=== PATIENT | male | born 1945 | race Caucasian/White ===

== ENCOUNTER → 2016-11-10 | Outpatient (CLI) | payer MEDICARE ==
[2016-11-10 16:13] LABS: Blood Urea Nitrogen 21 mg/dL (9-20); Non-African American GFR(MDRD) >60 (>60 ml/min/1.73 sqM)
--- NOTE | 2016-11-10 17:06 | CT ---
EXAMINATION TYPE: CT angio neck DATE OF EXAM: 11/10/2016 HISTORY: Follow up Right sided stenosis COMPARISON: Carotid ultrasound dated 05/05/2014 CT DLP: 532 mGycm. Automated Exposure Control for Dose Reduction was Utilized. TECHNIQUE: CTA scan of the neck is performed with IV Contrast, patient injected with 65 mL of Omnipa que 350, axial images are obtained, coronal and sagittal reformatted images are reviewed. Three-D rec onstructed images are created on an independent workstation and reviewed. FINDINGS: Carotid/Vascular Structures: And film is made of a bovine configuration of the aortic arch, normal an atomic variant. There is minimal nonhemodynamically significant ostial stenosis of the origins of the great vessels. The common carotid arteries are of normal caliber with minimal acentrically anteriorl y located calcific atherosclerosis of the right common carotid artery of less than 20%. There is near complete occlusion of the right carotid artery at the carotid bulb of greater than 90% and a short segment of 6 mm on series 5 image 50 and 51. However there is severe atherosclerosis cont ributed to by calcific and noncalcific eccentric plaque of the carotid bulb extending along the regio n of approximately 7 mm. Distal to this there is continuation of the calcific atheromatous plaquing w ith approximately 50% stenosis for 1.1 cm. Right internal carotid artery remains smaller than the left in the remaining cervical portions withou t focal stenosis. Smaller caliber relates to circumferential intimal noncalcific plaquing. Approximat mihir 50% stenosis from calcific atheromatous changes are seen of the right cavernous portion of the ca rotid artery. Small amount of plaquing is also seen within the supraclinoid portion of the right inte rnal carotid artery. Vertebral arteries are codominant. However, there is an apparent course of the left vertebral artery as it courses outside of the transverse foramen from its origin to C3. Biapical nodular pleural parenchymal thickening is noted bilaterally. Moderate calcific changes of th e aortic arch are present. Single prominent precarinal lymph node measures 1.0 cm in short axis but m aintains a fatty hilum. Multilevel degenerative change of the cervical spine is seen with uncovertebr al hypertrophy, facet arthropathy and small posterior disc osteophyte. IMPRESSION: 1. Near complete occlusion of the right carotid artery at the carotid bulb with stenosis of greater t hutch[place] 90% in a short segment of 6 mm with stenosis continuing distal to this of at least 50% for anothe r 1.1 cm involving the internal carotid artery. Remainder of the right internal carotid artery in its cervical portions is diminutive and comparative to the left secondary to circumferential noncalcific atheromatous changes but is less than 50% stenotic. 2. No hemodynamically significant stenosis of the left carotid artery or carotid bulb. 3. 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
== END | disposition home or self-care (01) ==
LOC: RADCTMAIN 15:38
PROVIDERS: ATTEND Internal Medicine Cardiovascular Disease
DX: I65.21 Occlusion and stenosis of right carotid artery (principal)
CPT/HCPCS: 82565; 84520; 70498; 36415; Q9967

== ENCOUNTER 2016-11-25 07:19 | Day surgery (SDC) | payer MEDICARE ==
[2016-11-22 09:22] VITALS: BMI 28.8
[~2016-11-25 07:19] MED LIST: ALPRAZolam 0.25 MG TAB PO PRN; ASPIRIN 325 MG TAB PO ONE; CLOPIDOGREL 75 MG TAB PO ONE; SODIUM CHLORIDE 0.9% 1,000 ML in EMPTY BAG 1 BAG IV ONE
[2016-11-25 08:03] LABS: CH 30.9; CHCM 34.1; HCT 45.4 % (39.0-53.0); HDW 2.69; HGB 15.2 gm/dL (13.0-17.5); MCH 30.5 pg (25.0-35.0); MCHC 33.4 g/dL (31.0-37.0); MCV 91.3 fL (80.0-100.0); Mean Platelet Volume 7.6; RBC 4.97 m/uL (4.30-5.90); RDW 15.7 % (11.5-15.5); WBC 15.1 k/uL (3.8-10.6)
[2016-11-25] MEDS ORDERED: LIDOCAINE 2% INJ 20 MG/ML SQ ONE ×2 (09:38→09:41)
[2016-11-25] MEDS ORDERED: ALPRAZolam 0.5 MG TAB PO PRN (10:37)
[2016-11-25] MEDS ORDERED: ATROPINE SULFATE 0.1 MG/ML 10ML SYRINGE IV PRN (10:39)
[2016-11-25] MEDS ORDERED: MAG HYDROX/AL HYDROX/SIMETH 30 ML CUP PO PRN (10:39)
[2016-11-25] MEDS ORDERED: RX INFO: IV CONTRAST WAS GIVEN 1 EACH MISC MISCELLANE PRN (10:39)
[2016-11-25] MEDS ORDERED: IOHEXOL 350 MG/ML 125ML BOTTLE INJ ONE (10:43)
[2016-11-25] MEDS ORDERED: CLOPIDOGREL 75 MG TAB PO ONE (10:43)
[2016-11-25] MEDS ORDERED: SODIUM CHLORIDE 0.9% 1,000 ML IV SCH (10:45)
--- NOTE | 2016-11-25 11:45 | AN ---
ANGIOGRAPHY REPORT DATE OF SERVICE: 11/25/2016. PERFORMING PHYSICIAN: Ulises Joel MD, fuel testing technician. PROCEDURE PERFORMED: 1. Selective right internal carotid artery angiogram. 2. Selective intracranial angiogram. 3. Successful stenting of the right common carotid artery using 8 to 10 mm x 30 mm Xact stent with good angiographic results, with adjunctive use of distal protection device. INDICATION: This is a pleasant 71-year-old gentleman who sees Dr. Guido as an outpatient, who is known to have coronary artery disease and underwent right carotid endarterectomy in the past. He underwent carotid duplex study which showed severe stenosis. Subsequently he underwent a CTA, which showed critical stenosis. He was brought today for further clarification and stenting of the right common carotid artery. COMPLICATIONS: None. LEVEL OF SEDATION: Local anesthesia was performed only, without any conscious sedation. APPROACH: Right common femoral artery. PROCEDURE DESCRIPTION: After obtaining informed consent, the patient was brought to the cardiac slab polisher. The right common femoral artery was cannulated using micropuncture technique and a micropuncture wire passed easily and I placed an 11 cm 6-Bulgarian sheath in the right common femoral artery. Subsequently I did select the right common carotid artery using ELAYNE 2 catheter with an 0.035 Glidewire and I did selective right common and right internal carotid artery angiogram. After that, I decided to intervene on the right common carotid artery. Anticoagulation was initiated using heparin and the patient was given units of heparin IV. After that, I did exchange my wire of the right internal carotid artery using an 0.035 Advantage wire. Then I did exchange my 11 cm sheath into a 90 cm shuttle sheath, which was 6-Bulgarian sheath over the Advantage wire and the tip of the sheath was positioned in the proximal right common carotid artery. Subsequently I did pull the dilator and the Advantage wire out. At that point, I did right intracranial angiogram and I did also selective right common and internal carotid artery angiogram. After that, I did deploy filter wire after the filter wire was prepped. Then I did predilatation using 4 mm balloon. Subsequently, I did deploy an 8 to 10 x 30 mm Xact carotid stent where the stent was positioned under fluoroscopy guidance and deployed. I post dilated the stent initially using 5 mm balloon initially, then subsequently using 6.5 mm balloon. The following angiogram showed good angiographic results without complication and without any issues. POSTPROCEDURE MANAGEMENT: 1. Dual anti-platelet therapy. 2. Risk factor modifications. 3. Follow up with the patient. MMODL / IJN: [id number] /
[2016-11-25 13:54] LABS: Glucose,Whole Blood 114 mg/dL (75-99)
--- NOTE | 2016-11-25 14:42 | IR ---
Fluoroscopy HISTORY: Carotid stenosis 13.8 minutes fluoroscopy time supplied to the referring clinician. 720 intraoperative C-arm images d ocument the procedure. See dictated report from cardiology.
[2016-11-25] MEDS: MAGNESIUM OXIDE 400 MG TAB PO SCH (20:41)
[2016-11-25] MEDS: METOPROLOL TARTRATE 50 MG TAB PO SCH (20:41)
[2016-11-25] MEDS ORDERED: ATORVASTATIN 40 MG TAB PO SCH ×2 (21:00)
[2016-11-25] MEDS ORDERED: NON-FORMULARY DRUG (Omega-3 Fatty Acids/Fish Oil [Fish Oil 1,000 Mg Softgel] 1 EACH) PO SCH (21:00)
[2016-11-26 04:50] LABS: Basophils # (A) 0.4 k/uL (0-0.2); Basophils % (A) 3 %; CH 29.5; CHCM 33.4; Eosinophils # (A) 0.3 k/uL (0-0.7); Eosinophils % (A) 2 %; HCT 43.5 % (39.0-53.0); HDW 2.64; HGB 14.1 gm/dL (13.0-17.5); Luc # (Auto) 0.24; Luc % (Auto) 2; Lymphocytes # (A) 0.8 k/uL (1.0-4.8); Lymphocytes % (A) 6 %; MCH 28.9 pg (25.0-35.0); MCHC 32.4 g/dL (31.0-37.0); MCV 89.1 fL (80.0-100.0); Monocytes # (A) 0.9 k/uL (0-1.0); Monocytes % (A) 6 %; Neutrophils # (A) 11.7 k/uL (1.3-7.7); Neutrophils % (A) 82 %; RBC 4.88 m/uL (4.30-5.90); RDW 14.6 % (11.5-15.5); WBC 14.4 k/uL (3.8-10.6); WBC (Perox) 14.56
[2016-11-26 05:03] LABS: Anion Gap 9 mmol/L; Blood Urea Nitrogen 23 mg/dL (9-20); Calcium 9.1 mg/dL (8.4-10.2); Carbon Dioxide 23 mmol/L (22-30); Chloride 106 mmol/L (98-107); Glucose 101 mg/dL (74-99); Non-African American GFR(MDRD) >60 (>60 ml/min/1.73 sqM); Potassium 4.4 mmol/L (3.5-5.1); Sodium 138 mmol/L (137-145)
[2016-11-26] MEDS: MAGNESIUM OXIDE 400 MG TAB PO SCH (08:59)
[2016-11-26] MEDS: METOPROLOL TARTRATE 50 MG TAB PO SCH (08:59)
[2016-11-26] MEDS ORDERED: LISINOPRIL 10 MG TAB PO SCH (09:00)
[2016-11-26] MEDS ORDERED: amLODIPine 10 MG TAB PO SCH (09:00)
[2016-11-26] MEDS ORDERED: SILICA PO SCH (09:00)
[2016-11-26] MEDS ORDERED: CHOLECALCIFEROL 1,000 UNIT TAB PO SCH (09:00)
[2016-11-26] MEDS ORDERED: ASPIRIN 325 MG TAB PO SCH ×2 (09:00)
[2016-11-26] MEDS ORDERED: SAW PALMETTO PO SCH (09:00)
[2016-11-26] MEDS ORDERED: NON-FORMULARY DRUG (Potassium [Potassium] 99 MG) PO SCH (09:00)
[2016-11-26] MEDS ORDERED: CLOPIDOGREL 75 MG TAB PO SCH ×2 (09:00→10:39)
[2016-11-26] MEDS ORDERED: ASCORBIC ACID 500 MG TAB PO SCH (09:00)
[2016-11-26] MEDS ORDERED: NON-FORMULARY DRUG (Ubidecarenone [Co Q-10] 100 MG) PO SCH (09:00)
--- NOTE | 2016-11-26 09:48 | DS ---
DISCHARGE SUMMARY DATE OF ADMISSION: November 25, 2016. DISCHARGE DATE: November 26, 2016. BRIEF HISTORY: This is a very pleasant 71-year-old gentleman who is a patient of Dr. Ran Guido who is known to have carotid artery disease and underwent in the past right carotid endarterectomy, and he was having surveillance duplex study by Dr. Guido with the last duplex study showing severe disease involving the right common/internal carotid artery. Subsequently a CTA of the carotid was performed by Dr. uGido and identified possible subtotally occluded right common/right internal carotid artery. The patient was admitted to the hospital yesterday and underwent selective right common and right internal carotid angiogram which identified critical disease involving the right common carotid artery. He underwent successful stenting of the right common carotid artery using 8 to 10 mm x 30 mm Xact stent from [employer] with good angiographic results and with adjunctive use of distal protection filter. PROCEDURE: Was performed from the right groin which is soft and nontender and without any bruises. On follow up with the patient today, he seems to be doing good and he is asymptomatic. He is going to be discharged home on dual anti-platelet therapy as well as a statin. The patient is going to follow up with Dr. Guido as an outpatient in about a week from now. MMODL / IJN: [id number] /
[2016-11-26 09:59] VITALS: TEMP 98.7
[2016-11-26 11:22] VITALS: BP 114/55; PULSE 53; RESP 14
== END 2016-11-26 12:29 | disposition home or self-care (01) ==
LOC: CATHCVL 07:19 → 6ICU 13:00 → CATHCVL 11-26 12:29
PROVIDERS: ATTEND Internal Medicine Interventional Cardiology
DX: I65.21 Occlusion and stenosis of right carotid artery (principal); I70.213 Atherosclerosis of native arteries of extremities with intermittent claudication, bilateral legs; I10 Essential (primary) hypertension; E78.5 Hyperlipidemia, unspecified; I25.810 Atherosclerosis of coronary artery bypass graft(s) without angina pectoris; Z79.02 Long term (current) use of antithrombotics/antiplatelets; Z79.82 Long term (current) use of aspirin; Z79.899 Other long term (current) drug therapy; Z87.891 Personal history of nicotine dependence
CPT/HCPCS: 37215; 80048; 83735; 85025; 85027; C1725 ×2; C1769 ×5; C1894 ×2; C1884; C1876; J2001; J1644; Q9967

== ENCOUNTER → 2021-02-24 | Outpatient (CLI) | payer OTHER ==
[2021-02-24 23:54] LABS: HCT 39.3 % (39.6-50.0); HGB 12.1 g/dL (13.0-17.0); MCH 28.1 pg (27.0-32.0); MCHC 30.8 g/dL (32.0-37.0); MCV 91.2 fL (80.0-97.0); Mean Platelet Volume 10.6 fL (9.5-12.2); Platelet Count 240 X 10*3/uL (140-440); RBC 4.31 X 10*6/uL (4.40-5.60); WBC 7.12 X 10*3/uL (4.50-10.00)
[2021-02-25 00:04] LABS: African American GFR (CKD) 76.3 (60.0-200.0); Anion Gap 13.7 mmol/L (10.00-18.00); BUN/Creat Ratio 19.91 Ratio (12.00-20.00); Blood Urea Nitrogen 21.5 mg/dL (9.0-27.0); Calcium 9.3 mg/dL (8.7-10.3); Carbon Dioxide 22.6 mmol/L (20.0-27.5); Non-African American GFR(CKD) 65.9 (60.0-200.0); Potassium 4.5 mmol/L (3.5-5.5)
== END | disposition home or self-care (01) ==
LOC: LABWHC1 14:57
PROVIDERS: ATTEND Internal Medicine Cardiovascular Disease
DX: R60.0 Localized edema (principal)
CPT/HCPCS: 36415; 80048; 83880; 84443; 85027

== ENCOUNTER 2021-04-01 06:23 | Day surgery (SDC) | payer MEDICARE, OTHER ==
[2021-03-30 13:54] VITALS: BMI 25.8
[~2021-04-01 06:23] MED LIST changes: -ALPRAZolam 0.25 MG TAB PO PRN; -ASPIRIN 325 MG TAB PO ONE; -CLOPIDOGREL 75 MG TAB PO ONE; +SODIUM CHLORIDE 0.9% 1,000 ML IV SCH; -SODIUM CHLORIDE 0.9% 1,000 ML in EMPTY BAG 1 BAG IV ONE
[2021-04-01 07:04] LABS: Glucose,Whole Blood 115 mg/dL (75-99)
[2021-04-01] MEDS ORDERED: PROPOFOL 10 MG/ML 20 ML VIAL IV ONE (07:25)
[2021-04-01] MEDS ORDERED: LIDOCAINE 1% INJ 10MG/ML (20 ML MDV) ONE (07:25)
[2021-04-01 08:35] VITALS: TEMP 97.5
--- NOTE | 2021-04-01 09:48 | ECHOT ---
TRANSESOPHAGEAL ECHOCARDIOGRAM FIRST PROCEDURE: Transesophageal echocardiogram. INDICATION: Persistent atrial fibrillation. PROCEDURE NOTE: After obtaining informed consent, transesophageal echocardiogram was performed in left lateral position using an Omniplane probe. Local and IV sedation were obtained by the picked edge sewing machine operator. Color Doppler, 2D, M-mode and spectral analysis was performed. Patient tolerated the procedure well without any obvious immediate complications. FINDINGS: 1. There is no intracardiac thrombus within the left atrial appendage, left atrium, right atrium, right ventricle or left ventricle. 2. Left ventricle has normal size and systolic function. 3. Right atrium is severely enlarged. 4. Right ventricle appears mildly enlarged. 5. Left atrium is mildly enlarged. 6. Interatrial septum: There is no evidence of [id number] shunt by agitated saline contrast study, but with color Doppler there seems to be shunting from left to right. 7. Mitral valve is anatomically normal. There is mild to moderate central mitral regurgitation noted. 8. There is mild tricuspid regurgitation noted. 9. Aortic valve is a 3-leaflet valve. There is no evidence aortic stenosis or regurgitation. Aortic root measures within normal limits. CONCLUSIONS: 1. Normal LV systolic function. 2. No intracardiac thrombus. 3. Mild to moderate mitral regurgitation. 4. Right atrium appears severely enlarged. PLAN: Patient will undergo cardioversion. CARDIOVERSION NOTE: INDICATION: Persistent atrial fibrillation. PROCEDURE DESCRIPTION: After obtaining informed consent, patient underwent electrical cardioversion with synchronized DC current. Intracardiac thrombus was ruled out by transesophageal echo and patient was adequately anticoagulated with Eliquis. Patient converted to sinus rhythm following two synchronized DC current shocks. Initially we tried a 100-joule shock; it did not work; then we tried a 150-joule current, following which he converted to sinus rhythm. He will continue the anticoagulant and will follow up with me in a week's time. MMODL / IJN: [id number] /
--- NOTE | 2021-04-01 10:56 | LTR ---
April 01, 2021 To: Dr. Tee Batres Re: Randall Brewster (41) Dear Aditya, I performed transesophageal echo and cardioversion on Randall Brewster. A detailed procedure is enclosed for your records. I am happy to report to you that patient converted to sinus rhythm following a 150- joule synchronized DC shock, and will continue the anticoagulant that he is on. Thank you for giving me the privilege of participating in the care of this pleasant gentleman. Sincerely, Ran Guido M.D. DEBBI / MARY KATE: [id number] /
[2021-04-01 14:44] VITALS: RESP 16
[2021-04-01 14:45] VITALS: BP 150/65; PULSE 70
== END 2021-04-01 09:57 | disposition home or self-care (01) ==
LOC: CATHCVL 06:23
PROVIDERS: ATTEND Internal Medicine Cardiovascular Disease
DX: I48.19 Other persistent atrial fibrillation (principal); I48.3 Typical atrial flutter; I11.0 Hypertensive heart disease with heart failure; I50.32 Chronic diastolic (congestive) heart failure; I08.1 Rheumatic disorders of both mitral and tricuspid valves; I25.10 Atherosclerotic heart disease of native coronary artery without angina pectoris; F17.210 Nicotine dependence, cigarettes, uncomplicated; I73.9 Peripheral vascular disease, unspecified; I77.9 Disorder of arteries and arterioles, unspecified; E78.2 Mixed hyperlipidemia; Z95.1 Presence of aortocoronary bypass graft; Z79.01 Long term (current) use of anticoagulants; Z79.899 Other long term (current) drug therapy; Z79.84 Long term (current) use of oral hypoglycemic drugs; Z79.82 Long term (current) use of aspirin
CPT/HCPCS: 93312; 93320; 93325; 92960; J2001; J2704

== ENCOUNTER → 2021-11-13 | Outpatient (CLI) | payer MEDICARE ==
[2021-11-13 16:46] LABS: ALT 38 U/L (10-49); AST 32 U/L (14-35); Chol/HDL Ratio 2.28 Ratio; LDL Cholesterol,Calculated 78.2 mg/dL (0.0-131.0); VLDL Calculation 11.72 mg/dL (5.00-40.00)
== END | disposition home or self-care (01) ==
LOC: LABWHC1 08:14
PROVIDERS: ATTEND Internal Medicine Cardiovascular Disease
DX: E78.2 Mixed hyperlipidemia (principal)
CPT/HCPCS: 36415; 80061; 84450; 84460

== ENCOUNTER 2022-12-27 10:38 | Observation (INO) | payer MEDICARE ==
[2022-12-27] MEDS ORDERED: VANCOMYCIN IV PER PHARMACY 1 EACH MISC MISCELLANE PRN (11:57)
[2022-12-27] MEDS ORDERED: VANCOMYCIN 1,500 MG in SODIUM CHLORIDE 0.9% 500 ML 500 ML IVPB STA (12:02)
--- NOTE | 2022-12-27 12:02 | ED ---
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 Patient states 3 weeks ago had an ingrown toenail removed of his right great toe. Since then has had problems with redness and pain of the toe. Was prescribed Bactrim on 12/19/22. Despite taking this, reports continued redness warmth and pain of the toe. Reports that he had an x-ray of his toe last week that did not show a "bone infection". Eyes fever or chills. No chest pain or shortness of breath. - Related Data Home Medications Medication Instructions Recorded Confirmed Atorvastatin [Lipitor] 80 mg PO HS 01/14/14 04/01/21 Metoprolol Tartrate [Lopressor] 50 mg PO BID 01/14/14 04/01/21 amLODIPine [Norvasc] 10 mg PO DAILY 01/14/14 04/01/21 lisinopriL [Zestril] 10 mg PO DAILY 10/08/15 04/01/21 Aspirin 81 mg PO DAILY 11/25/15 04/01/21 Ascorbic Acid [Vitamin C] 1,000 mg PO DAILY 11/22/16 04/01/21 Magnesium Oxide [Mag-Ox] 500 mg PO QAM 11/22/16 04/01/21 Potassium 99 mg PO DAILY 11/22/16 04/01/21 Saw Goodrich 500 mg PO DAILY #0 11/22/16 04/01/21 Silica 500 mg PO DAILY 11/22/16 04/01/21 Vitamin A Acetate [Vitamin A] 10,000 unit SL DAILY 11/22/16 04/01/21 Vitamin B Complex 1 each PO DAILY 11/22/16 04/01/21 Zinc 50 mg PO DAILY 11/22/16 04/01/21 Apixaban [Eliquis] 5 mg PO BID 03/30/21 04/01/21 Cinnachroma 1 tab PO DAILY 03/30/21 04/01/21 Nilotinib HCl [Tasigna] 300 mg PO BID 03/30/21 03/30/21 Omeprazole 20 mg PO DAILY 03/30/21 04/01/21 Psyllium Husk [Metamucil] 0.4 gm PO DAILY 03/30/21 04/01/21 Tamsulosin HCl [Flomax] 0.4 mg PO DAILY 03/30/21 04/01/21 metFORMIN HCL 500 mg PO DAILY 03/30/21 04/01/21 Allergies Allergy/AdvReac Type Severity Reaction Status Date / Time amoxicillin trihydrate AdvReac headache Verified 12/27/22 10:48 [From Augmentin] potassium clavulanate AdvReac headache Verified 12/27/22 10:48 [From Augmentin] Review of Systems ROS Statement: Those systems with pertinent positive or pertinent negative responses have been documented in the HPI. ROS Other: All systems not noted in ROS Statement are negative. Past Medical History Past Medical History: Coronary Artery Disease (CAD), Diabetes Mellitus, Hyperlipidemia, Hypertension, Vascular Disorder Additional Past Medical History / Comment(s): calf pain, recent admission for "critically" low sodium per psouse History of Any Multi-Drug Resistant Organisms: None Reported Past Surgical History: Coronary Bypass/CABG, Heart Catheterization, Tonsillectomy Additional Past Surgical History / Comment(s): 1999 CABG, right carotid endartectomy- 1999, Past Anesthesia/Blood Transfusion Reactions: Motion Sickness Past Psychological History: No Psychological Hx Reported Past Alcohol Use History: Occasional Past Drug Use History: None Reported - Past Family History Father Family Medical History: Myocardial Infarction ([place]) Additional Family Medical History / Comment(s): heart problems Mother Family Medical History: Diabetes Mellitus Additional Family Medical History / Comment(s): jeart problems General Exam Limitations: no limitations General appearance: alert, in no apparent distress Neck exam: Present: normal inspection Respiratory exam: Present: normal lung sounds bilaterally Cardiovascular Exam: Present: regular rate, normal rhythm GI/Abdominal exam: Present: soft Extremities exam: Present: other (Right great toe with redness, warmth, erythema, tenderness to palpation however no significant bony tenderness palpation. Strength and sensation intact.) Neurological exam: Present: alert, oriented X3 Skin exam: Present: warm, dry Course Vital Signs 12/27/22 10:48 Temperature 97.9 F Pulse Rate 109 H Respiratory 18 Rate Blood Pressure 128/76 O2 Sat by Pulse 99 Oximetry Medical Decision Making - Medical Decision Making Was pt. sent in by a medical professional or institution (, DUSTY, HEALTH CLUB MANAGER, urgent care, hospital, or correction...) When possible be specific @ -No Did you speak to anyone other than the patient for history (EMS, parent, family, police, friend...)? What history was obtained from this source @ -No Did you review nursing and triage notes (agree or disagree)? Why? @ -I reviewed and agree with nursing and triage notes Were old charts reviewed (outside hosp., previous admission, EMS record, old EKG, old radiological studies, urgent care reports/EKG's, correction records)? Report findings @ -No old charts were reviewed Differential Diagnosis (chest pain, altered mental status, abdominal pain women, abdominal pain men, vaginal bleeding, weakness, fever, dyspnea, syncope, headache, dizziness, GI bleed, back pain, seizure, CVA, palpatations, mental health, musculoskeletal)? @ -Differential Musculoskeletal Muscular strain, contusion, ligament sprain, fracture, arthritis, septic art hritis, bursitis, cellulitis, muscle spasm, nerve compression, DVT, arterial occlusion, herpes zoster, electrolyte abnormality, tumor.... This is not meant to be in all inclusive list EKG interpreted by me (3pts min.). @ -As above X-rays interpreted by me (1pt min.). @ -X-ray of the right great toe shows no evidence of osteomyelitis. CT interpreted by me (1pt min.). @ -None done U/S interpreted by me (1pt. min.). @ -None done What testing was considered but not performed or refused? (CT, X-rays, U/S, labs)? Why? @ -None What meds were considered but not given or refused? Why? @ -None Did you discuss the management of the patient with other professionals (professionals i.e. DUSTY Cisse, HEALTH CLUB MANAGER, lab, RT, psych nurse, mental health social worker, product marketing coordinator, teacher, chief contract officer, family independence case manager)? Give summary @ -No Was smoking cessation discussed for >3mins.? @ -No Was critical care preformed (if so, how long)? @ -No Were there social determinants of health that impacted care today? How? (Homelessness, low income, unemployed, alcoholism, drug addiction, transportation, low edu. Level, literacy, decrease access to med. care, [place] [facility], rehab)? @ -No Was there de-escalation of care discussed even if they declined (Discuss DNR or withdrawal of care, Hospice)? DNR status @ -No What co-morbidities impacted this encounter? (DM, HTN, Smoking, COPD, CAD, Cancer, CVA, ARF, Chemo, Hep., AIDS, mental health diagnosis, sleep apnea, morbid obesity)? @ -CML, type 2 diabetes Was patient admitted / discharged? Hospital course, mention meds given and route, prescriptions, significant lab abnormalities, going to OR and other pertinent info. @ -Admission 77-year-old male presenting to the ED with an infection of the right great toe ongoing for the last 3 weeks with no improvement despite complaining a course of Bactrim double strength outpatient. X-ray of the toe shows no evidence of osteomyelitis. CBC does not show an elevated white count. CRP also not elevated. However, with patient's comorbidities felt patient at high risk especially with failure of outpatient treatment. Therefore, patient will be admitted to observation with consult to infectious disease and podiatry. Undiagnosed new problem with uncertain prognosis? @ -No Drug Therapy requiring intensive monitoring for toxicity (Heparin, Nitro, Insulin, Cardizem)? @ -No Were any procedures done? @ -No Diagnosis/symptom? @ -Right great toe infection Acute, or Chronic, or Acute on Chronic? @ -Acute Uncomplicated (without systemic symptoms) or Complicated (systemic symptoms)? @ -Uncomplicated Side effects of treatment? @ -[No xacerbation, Progression, or Severe Exacerbation? @ -[No oses a threat to life or bodily function? How? (Chest pain, [place], [place], pneumonia, PE, COPD, DKA, ARF, appy, cholecystitis, CVA, Diverticulitis, Homicidal, Suicidal, threat to staff... and all critical care pts) @ -[No - Lab Data Result diagrams: 12/27/22 12:03 12/27/22 12:03 Lab Results 12/27/22 12/27/22 12/27/22 Range/Units 12:03 12:03 12:03 WBC 6.5 (3.8-10.6) k/uL RBC 4.68 (4.30-5.90) m/uL Hgb 14.0 (13.0-17.5) gm/dL Hct 41.1 (39.0-53.0) % MCV 87.7 (80.0-100.0) fL MCH 29.9 (25.0-35.0) pg MCHC 34.1 (31.0-37.0) g/dL RDW 14.1 (11.5-15.5) % Plt Count 287 (150-450) k/uL MPV 6.9 Neutrophils % 58 % Lymphocytes % 14 % Monocytes % 11 % Eosinophils % 12 % Basophils % 1 % Neutrophils # 3.8 (1.3-7.7) k/uL Lymphocytes # 0.9 L (1.0-4.8) k/uL Monocytes # 0.7 (0-1.0) k/uL Eosinophils # 0.8 H (0-0.7) k/uL Basophils # 0.1 (0-0.2) k/uL Sodium 124 L (137-145) mmol/L Potassium 5.0 (3.5-5.1) mmol/L Chloride 96 L (98-107) mmol/L Carbon Dioxide 20 L (22-30) mmol/L Anion Gap 8 mmol/L BUN 22 H (9-20) mg/dL Creatinine 1.10 (0.66-1.25) mg/dL Est GFR (CKD-EPI)AfAm 74 (>60 ml/min/1.73 sqM) Est GFR (CKD-EPI)NonAf 64 (>60 ml/min/1.73 sqM) Glucose 104 H (74-99) mg/dL Plasma Lactic Acid Esau (0.7-2.0) mmol/L Calcium 9.7 (8.4-10.2) mg/dL Total Bilirubin 1.1 (0.2-1.3) mg/dL AST 40 (17-59) U/L ALT 32 (4-49) U/L Alkaline Phosphatase 144 H (38-126) U/L C-Reactive Protein <0.5 (<1.0) mg/dL Total Protein 8.4 H (6.3-8.2) g/dL Albumin 5.0 (3.5-5.0) g/dL Urine Color Light Yellow Urine Appearance Clear (Clear) Urine pH 6.0 (5.0-8.0) Ur Specific [place] 1.008 (1.001-1.035) Urine Protein Negative (Negative) Urine Glucose (UA) Negative (Negative) Urine Ketones Negative (Negative) Urine Blood Negative (Negative) Urine Nitrite Negative (Negative) Urine Bilirubin Negative (Negative) Urine Urobilinogen <2.0 (<2.0) mg/dL Ur Leukocyte Esterase Negative (Negative) 12/27/22 12/27/22 Range/Units 12:03 12:18 WBC (3.8-10.6) k/uL RBC (4.30-5.90) m/uL Hgb (13.0-17.5) gm/dL Hct (39.0-53.0) % MCV (80.0-100.0) fL MCH (25.0-35.0) pg MCHC (31.0-37.0) g/dL RDW (11.5-15.5) % Plt Count (150-450) k/uL MPV Neutrophils % % Lymphocytes % % Monocytes % % Eosinophils % % Basophils % % Neutrophils # (1.3-7.7) k/uL Lymphocytes # (1.0-4.8) k/uL Monocytes # (0-1.0) k/uL Eosinophils # (0-0.7) k/uL Basophils # (0-0.2) k/uL Sodium 130 L (137-145) mmol/L Potassium 5.0 (3.5-5.1) mmol/L Chloride 95 L (98-107) mmol/L Carbon Dioxide 24 (22-30) mmol/L Anion Gap 11 mmol/L BUN 22 H (9-20) mg/dL Creatinine 1.11 (0.66-1.25) mg/dL Est GFR (CKD-EPI)AfAm 73 (>60 ml/min/1.73 sqM) Est GFR (CKD-EPI)NonAf 63 (>60 ml/min/1.73 sqM) Glucose 104 H (74-99) mg/dL Plasma Lactic Acid Esau 1.1 (0.7-2.0) mmol/L Calcium 9.7 (8.4-10.2) mg/dL Total Bilirubin 1.2 (0.2-1.3) mg/dL AST 42 (17-59) U/L ALT 31 (4-49) U/L Alkaline Phosphatase 144 H (38-126) U/L C-Reactive Protein (<1.0) mg/dL Total Protein 8.4 H (6.3-8.2) g/dL Albumin 5.0 (3.5-5.0) g/dL Urine Color Urine Appearance (Clear) Urine pH (5.0-8.0) Ur Specific [place] (1.001-1.035) Urine Protein (Negative) Urine Glucose (UA) (Negative) Urine Ketones (Negative) Urine Blood (Negative) Urine Nitrite (Negative) Urine Bilirubin (Negative) Urine Urobilinogen (<2.0) mg/dL Ur Leukocyte Esterase (Negative) Disposition Clinical Impression: Cellulitis Disposition: ADMITTED IP TO THIS HOSP Condition: Good Referrals: Anthony Luong MD [Primary Care Provider] - 1-2 days
[2022-12-27] MEDS ORDERED: SODIUM CHLORIDE 0.9% 1,000 ML IV STA (12:03)
[2022-12-27 12:41] LABS: Basophils # (A) 0.1 k/uL (0-0.2); Basophils % (A) 1 %; Eosinophils # (A) 0.8 k/uL (0-0.7); Eosinophils % (A) 12 %; HCT 41.1 % (39.0-53.0); Lymphocytes # (A) 0.9 k/uL (1.0-4.8); Lymphocytes % (A) 14 %; MCH 29.9 pg (25.0-35.0); MCHC 34.1 g/dL (31.0-37.0); MCV 87.7 fL (80.0-100.0); Mean Platelet Volume 6.9; Monocytes # (A) 0.7 k/uL (0-1.0); Monocytes % (A) 11 %; Neutrophils # (A) 3.8 k/uL (1.3-7.7); Neutrophils % (A) 58 %; Platelet Count 287 k/uL (150-450); RBC 4.68 m/uL (4.30-5.90); RDW 14.1 % (11.5-15.5); WBC 6.5 k/uL (3.8-10.6)
[2022-12-27 12:44] LABS: ALT 32 U/L (4-49); AST 40 U/L (17-59); African American GFR (CKD) 74 (>60 ml/min/1.73 sqM); Alkaline Phosphatase 144 U/L (38-126); Anion Gap 8 mmol/L; Blood Urea Nitrogen 22 mg/dL (9-20); C Reactive Protein <0.5 mg/dL (<1.0); Calcium 9.7 mg/dL (8.4-10.2); Carbon Dioxide 20 mmol/L (22-30); Chloride 96 mmol/L (98-107); Glucose 104 mg/dL (74-99); Non-African American GFR(CKD) 64 (>60 ml/min/1.73 sqM); Sodium 124 mmol/L (137-145); Total Bilirubin 1.1 mg/dL (0.2-1.3); Total Protein 8.4 g/dL (6.3-8.2)
[2022-12-27 12:47] LABS: ALT 31 U/L (4-49); AST 42 U/L (17-59); African American GFR (CKD) 73 (>60 ml/min/1.73 sqM); Alkaline Phosphatase 144 U/L (38-126); Anion Gap 11 mmol/L; Blood Urea Nitrogen 22 mg/dL (9-20); Calcium 9.7 mg/dL (8.4-10.2); Carbon Dioxide 24 mmol/L (22-30); Chloride 95 mmol/L (98-107); Glucose 104 mg/dL (74-99); Non-African American GFR(CKD) 63 (>60 ml/min/1.73 sqM); Sodium 130 mmol/L (137-145); Total Bilirubin 1.2 mg/dL (0.2-1.3); Total Protein 8.4 g/dL (6.3-8.2)
--- NOTE | 2022-12-27 13:01 | XR ---
EXAMINATION TYPE: XR toes RT DATE OF EXAM: 12/27/2022 12:52 PM CLINICAL INDICATION:Male, 77 years old with history of r/o osteo R Great toe; [facility] COMPARISON: None TECHNIQUE: XR toes RT examined in the AP, oblique, and lateral projections. FINDINGS: No evidence of any acute osseous pathology. No evidence of soft tissue swelling. Joints are preserve d. No osseous erosion visualized. Multifocal degeneration with osteophyte and joint space narrowing. Given calcification noted along the medial right first digit. IMPRESSION: 1. No evidence of acute fracture. 2. No evidence for osseous erosion to suggest osteomyelitis.
[2022-12-27 13:34] LABS: Appearance,Urine Clear (Clear); Bilirubin,Urine Negative (Negative); Blood,Urine Negative (Negative); Color,Urine Light Yellow; Glucose,Urine (UA) Negative (Negative); Ketones,Urine Negative (Negative); Leukocyte Esterase,Urine Negative (Negative); Nitrite,Urine Negative (Negative); Protein,Urine Negative (Negative); Specific Gravity,Urine 1.008 (1.001-1.035); Urobilinogen,Urine <2.0 mg/dL (<2.0)
[2022-12-27] MEDS ORDERED: KETOROLAC 15 MG/ML 1 ML VIAL IVP PRN (14:13)
[2022-12-27] MEDS ORDERED: NALOXONE 0.4 MG/ML 1 ML VIAL IV PRN (14:13)
[2022-12-27] MEDS ORDERED: HYDROmorphone 1 MG/ML 1 ML SYRINGE IVP PRN (14:13)
[2022-12-27] MEDS: SODIUM CHLORIDE 0.9% 1,000 ML IV SCH (15:46)
[2022-12-27] MEDS ORDERED: DEXTROSE 50% SYRINGE 50 ML IVP PRN ×2 (16:23)
--- NOTE | 2022-12-27 16:25 | P.HPIM ---
History of Present Illness H&P Date: 12/27/22 Patient is a 77-year-old male with a history of CML, type 2 diabetes, hypertension, dyslipidemia, CAD status post CABG, prior stenosis status post endarterectomy, GERD, atrial fibrillation presenting with right great toe infection. He claims that 2 weeks ago he was noted to have an ingrown nail on his right great toe, presented to his PCP office. Ingrown nail was taken out at that time, patient had some relief from pain during the first week, and beginning to get worse the next week. He also noted erythema and edema. He did not notice any drainage. Denies any fevers or chills. He was given antibiotic at an urgent care and was advised to go to ER if it doesn't help. He o ccasionally drinks, denies any smoking history or illicit drug use. In the ED, temperature was 97.9, pulse 109, respiratory rate 18, blood pressure 128/76 saturating at 99% on room air. WBC 6.5, hemoglobin 14, platelet 37, sodium 1:30, chloride 95, BUN 22, creatinine 1.1, glucose 104, lactate 1.1, CRP negative, urinalysis negative. Toe x-ray showed no evidence of acute fracture or evidence of osseous erosion to suggest osteomyelitis. Podiatry and ID consulted by ER. Patient also started on IV vancomycin. Patient being admitted for failed outpatient therapy for right great toe cellulitis. Pertinent positives and negatives as discussed in HPI, a complete review of systems was performed and all other systems are negative. Patient seen and examined at bedside. Vital signs reviewed General: nontoxic, no distress, appears at stated age Derm: warm, dry Head: atraumatic, normocephalic, symmetric Eyes: EOMI, no lid lag, anicteric sclera, pupils equal round reactive to light ENT: Nose and ears atraumatic Neck: No thyromegaly, supple Mouth: no lip lesion, mucus membranes moist Cardiovascular: S1S2 reg, no murmur, no edema Lungs: clear to auscultation bilateral, no rhonchi, no rales, no wheeze, no accessory muscle use Abdominal: soft, nontender to palpation, no guarding, no appreciable organomegaly Ext: no gross muscle atrophy, muscle strength muscle strength 5 out of 5 in all 4 extremities, no contractures Neuro: CN II-XII grossly intact Psych: Alert, oriented, appropriate affect Assessment/Plan: Active: Right great toe cellulitis, failed outpatient antibiotic therapy -Blood cultures pending -Podiatry and ID consulted -IV vancomycin and switched to IV Unasyn -If no further interventions, consider switching to oral antibiotics and discharge home Mild hyponatremia -On normal saline at 75 mL an hour, also received 1 L of normal saline in the ED -Repeat BMP tomorrow Type 2 diabetes -Sliding scale insulin, monitor for hypoglycemia -Hold home antidiabetic medications Chronic: CAD status post CABG Hypertension Dyslipidemia Atrial fibrillation CML Restarted home medications once verified by pharmacy. The patient is admitted with an anticipated less than 2 midnight stay as observation status for evaluation of right great toe cellulitis. Surrogate decision-maker: spouse CODE STATUS: Full code DVT prophylaxis: Nikita Anticipated discharge date: Pending clinical course Anticipated discharge place: Pending clinical course A total of 55 minutes was spent on the care of this complex patient more than 50% of the time was spent in counseling and care coordination. Past Medical History Past Medical History: Coronary Artery Disease (CAD), Diabetes Mellitus, Hyperlipidemia, Hypertension, Vascular Disorder Additional Past Medical History / Comment(s): calf pain, recent admission for "critically" low sodium per psouse History of Any Multi-Drug Resistant Organisms: None Reported Past Surgical History: Coronary Bypass/CABG, Heart Catheterization, Tonsillectomy Additional Past Surgical History / Comment(s): 1999 CABG, right carotid endartectomy- 1999, Past Anesthesia/Blood Transfusion Reactions: Motion Sickness Past Psychological History: No Psychological Hx Reported Past Alcohol Use History: Occasional Past Drug Use History: None Reported - Past Family History Father Family Medical History: Myocardial Infarction ([place]) Additional Family Medical History / Comment(s): heart problems Mother Family Medical History: Diabetes Mellitus Additional Family Medical History / Comment(s): jeart problems Medications and Allergies Home Medications Medication Instructions Recorded Confirmed Type Atorvastatin [Lipitor] 80 mg PO HS 01/14/14 04/01/21 History Metoprolol Tartrate [Lopressor] 50 mg PO BID 01/14/14 04/01/21 History amLODIPine [Norvasc] 10 mg PO DAILY 01/14/14 04/01/21 History lisinopriL [Zestril] 10 mg PO DAILY 10/08/15 04/01/21 History Aspirin 81 mg PO DAILY 11/25/15 04/01/21 History Ascorbic Acid [Vitamin C] 1,000 mg PO DAILY 11/22/16 04/01/21 History Magnesium Oxide [Mag-Ox] 500 mg PO QAM 11/22/16 04/01/21 History Potassium 99 mg PO DAILY 11/22/16 04/01/21 History Saw [place] 500 mg PO DAILY #0 11/22/16 04/01/21 History Silica 500 mg PO DAILY 11/22/16 04/01/21 History Vitamin A Acetate [Vitamin A] 10,000 unit SL DAILY 11/22/16 04/01/21 History Vitamin B Complex 1 each PO DAILY 11/22/16 04/01/21 History Zinc 50 mg PO DAILY 11/22/16 04/01/21 History Apixaban [Eliquis] 5 mg PO BID 03/30/21 04/01/21 History Cinnachroma 1 tab PO DAILY 03/30/21 04/01/21 History Nilotinib HCl [Tasigna] 300 mg PO BID 03/30/21 03/30/21 History Omeprazole 20 mg PO DAILY 03/30/21 04/01/21 History Psyllium Husk [Metamucil] 0.4 gm PO DAILY 03/30/21 04/01/21 History Tamsulosin HCl [Flomax] 0.4 mg PO DAILY 03/30/21 04/01/21 History metFORMIN HCL 500 mg PO DAILY 03/30/21 04/01/21 History Allergies Allergy/AdvReac Type Severity Reaction Status Date / Time amoxicillin trihydrate AdvReac headache Verified 12/27/22 10:48 [From Augmentin] potassium clavulanate AdvReac headache Verified 12/27/22 10:48 [From Augmentin] Physical Exam Vitals: Vital Signs Temp Pulse Resp BP Pulse Ox 12/27/22 14:49 98.3 F 100 16 154/82 98 12/27/22 10:48 97.9 F 109 H 18 128/76 99 Intake and Output 12/27/22 12/27/22 12/27/22 06:59 14:59 22:59 Other: Weight 74.843 kg Results CBC & Chem 7: 12/27/22 12:03 12/27/22 12:03 Labs: Abnormal Lab Results - Last 24 Hours (Table) 12/27/22 12/27/22 12/27/22 Range/Units 12:03 12:03 12:03 Lymphocytes # 0.9 L (1.0-4.8) k/uL Eosinophils # 0.8 H (0-0.7) k/uL Sodium 124 L 130 L (137-145) mmol/L Chloride 96 L 95 L (98-107) mmol/L Carbon Dioxide 20 L (22-30) mmol/L BUN 22 H 22 H (9-20) mg/dL Glucose 104 H 104 H (74-99) mg/dL Alkaline Phosphatase 144 H 144 H (38-126) U/L Total Protein 8.4 H 8.4 H (6.3-8.2) g/dL
[2022-12-27 17:15] LABS: Glucose,Whole Blood 102 mg/dL (70-110)
[2022-12-27] MEDS: INSULIN ASPART (NovoLOG) 100 UNIT/ML VIAL SQ SCH ×2 (17:26→20:16)
[2022-12-27] MEDS: AMPICILLIN-SULBACTAM 3 GM in SODIUM CHLORIDE 0.9% 100 ML IVPB SCH (17:29)
[2022-12-27 19:57] LABS: Glucose,Whole Blood 107 mg/dL (70-110)
--- NOTE | 2022-12-27 21:40 | P.CONS ---
History of Present Illness - Reason for Consult Consult date: 12/27/22 Right great toe infection Requesting physician: Yassine Harris - Chief Complaint Right big toe pain swelling redness x few days - History of Present Illness Patient is a 77-year-old male with a past medical history significant for diabetes mellitus hypertension hyperlipidemia coronary artery disease patient apparently did have a minor surgery on his right big toe for the ingrowing toenail patient mention subsequent started having increasing redness and pain to the right big toe for the patient was evaluated at the local urgent care on 12/19/2022 patient was treated with a 7-day course of Bactrim DS patient mentioned with taking the Bactrim DS as a throbbing went away however after he was done with his antibiotic patient noticed to have increasing throbbing pain to the right big toe moderate intensity without any radiation with associated swelling and redness but no drainage that have concerned the patient and he present to the hospital on arrival to the ER patient was afebrile and no fever has been called subsequently patient did have a white count of 6.5 creatinine is 1.11 liver enzymes are normal UA has been negative patient did have x-ray of the toe no evidence for acute fracture and no evidence of acute bony erosion to suggest osteomyelitis, patient was started on vancomycin infectious disease was consulted for further management of antibiotic therapy Review of Systems Positive point and negatives has been mentioned in the HPI, complete review of systems was performed and all other systems are negative Past Medical History Past Medical History: Coronary Artery Disease (CAD), Diabetes Mellitus, Hyperlipidemia, Hypertension, Vascular Disorder Additional Past Medical History / Comment(s): calf pain, recent admission for "critically" low sodium per psouse History of Any Multi-Drug Resistant Organisms: None Reported Past Surgical History: Coronary Bypass/CABG, Heart Catheterization, Tons illectomy Additional Past Surgical History / Comment(s): 1999 CABG, right carotid endartectomy- 1999, Past Anesthesia/Blood Transfusion Reactions: Motion Sickness Past Psychological History: No Psychological Hx Reported Past Alcohol Use History: Occasional Past Drug Use History: None Reported - Past Family History Father Family Medical History: Myocardial Infarction ([place]) Additional Family Medical History / Comment(s): heart problems Mother Family Medical History: Diabetes Mellitus Additional Family Medical History / Comment(s): jeart problems Medications and Allergies Home Medications Medication Instructions Recorded Confirmed Type Aspirin 81 mg PO DAILY 11/25/15 12/27/22 History Apixaban [Eliquis] 5 mg PO BID 03/30/21 12/27/22 History Nilotinib HCl [Tasigna] 600 mg PO DAILY 03/30/21 12/27/22 History Omeprazole 20 mg PO DAILY 03/30/21 12/27/22 History Tamsulosin HCl [Flomax] 0.4 mg PO BID 03/30/21 12/27/22 History Atorvastatin [Lipitor] 80 mg PO HS 12/27/22 12/27/22 History Ferrous Gluconate 324 mg PO DAILY 12/27/22 12/27/22 History Metoprolol Tartrate [Lopressor] 50 mg PO TID 12/27/22 12/27/22 History lisinopriL [Zestril] 20 mg PO DAILY 12/27/22 12/27/22 History Amoxic-Pot Clav 875-125Mg 1 tab PO Q12HR 10 Days #20 tab 12/28/22 Rx [Augmentin 875-125] Allergies Allergy/AdvReac Type Severity Reaction Status Date / Time amoxicillin trihydrate AdvReac headache Verified 12/27/22 17:40 [From Augmentin] potassium clavulanate AdvReac headache Verified 12/27/22 17:40 [From Augmentin] Physical Exam Vitals: Vital Signs Temp Pulse Resp BP Pulse Ox 12/27/22 14:49 98.3 F 100 16 154/82 98 12/27/22 10:48 97.9 F 109 H 18 128/76 99 Intake and Output 12/27/22 12/27/22 12/27/22 06:59 14:59 22:59 Other: Weight 74.843 kg GENERAL DESCRIPTION: Elderly male lying in bed, no distress. No tachypnea or accessory muscle of respiration use. HEENT: Shows Pallor , no scleral icterus. Oral mucous membrane is dry. No pharyngeal erythema or thrush NECK: Trachea central, no thyromegaly. LUNGS: Unlabored breathing. Clear to auscultation anteriorly. No wheeze or crackle. HEART: S1, S2, regular rate and rhythm. No loud murmur ABDOMEN: Soft, no tenderness , guarding or rigidity, no organomegaly EXTREMITIES: Right big toe did have some swelling redness no open wound or any drainage SKIN: No rash, no masses palpable. NEUROLOGICAL: The patient is awake, alert, oriented x3, mood and affect normal. Results CBC & Chem 7: 12/27/22 12:03 12/28/22 04:16 Labs: Abnormal Lab Results - Last 24 Hours (Table) 12/27/22 12/27/22 12/27/22 Range/Units 12:03 12:03 12:03 Lymphocytes # 0.9 L (1.0-4.8) k/uL Eosinophils # 0.8 H (0-0.7) k/uL Sodium 124 L 130 L (137-145) mmol/L Chloride 96 L 95 L (98-107) mmol/L Carbon Dioxide 20 L (22-30) mmol/L BUN 22 H 22 H (9-20) mg/dL Glucose 104 H 104 H (74-99) mg/dL Alkaline Phosphatase 144 H 144 H (38-126) U/L Total Protein 8.4 H 8.4 H (6.3-8.2) g/dL Assessment and Plan (1) Cellulitis of great toe, right Status: Acute Code(s): L03.031 - CELLULITIS OF RIGHT TOE SNOMED Code(s): 14237824 (2) Diabetic infection of right foot Status: Acute Code(s): E11.628 - TYPE 2 DIABETES MELLITUS WITH OTHER SKIN COMPLICATIONS; L08.9 - LOCAL INFECTION OF THE SKIN AND SUBCUTANEOUS TISSUE, UNSP SNOMED Code(s): 63969377 Plan: 1patient presented to hospital with increasing pain to the right big toe in this patient who did have a recent surgery for the right big toe ingrowing toenail and has been treated in the outpatient setting with the Bactrim DS without significant improvement we will need to cover for the polymicrobial ashly usually associated with diabetic foot infection 2-patient with a Augmentin allergy as a headache not a true allergy 3-nursing staff has been advised if the area started to drain to obtain culture both aerobic and anaerobic 4-discontinue vancomycin 5-start the patient on Unasyn 3 g every 6 hours We will follow on clinical condition and cultures to further adjust medication if needed Thank you for this consultation we will follow the patient along with you Dictation was produced using [employer] dictation software. please excuse any grammatical, word or spelling errors. Time with Patient: Greater than 30
[2022-12-28] MEDS ORDERED: HEPARIN SODIUM,PORCINE 5,000 UNIT/ML 1 ML VIAL SQ SCH
[2022-12-28] MEDS: AMPICILLIN-SULBACTAM 3 GM in SODIUM CHLORIDE 0.9% 100 ML IVPB SCH ×5 (00:25→23:18)
[2022-12-28] MEDS: SODIUM CHLORIDE 0.9% 1,000 ML IV SCH (04:00)
[2022-12-28] MEDS ORDERED: VANCOMYCIN 1,250 MG in SODIUM CHLORIDE 0.9% 250 ML IVPB SCH (05:00)
[2022-12-28 07:11] LABS: Glucose,Whole Blood 100 mg/dL (70-110)
[2022-12-28] MEDS: INSULIN ASPART (NovoLOG) 100 UNIT/ML VIAL SQ SCH ×4 (07:41→20:19)
[2022-12-28] MEDS: TAMSULOSIN 0.4 MG CAP.ER.24H PO SCH ×2 (08:35→20:18)
[2022-12-28] MEDS: APIXABAN 5 MG TAB PO SCH ×2 (08:35→20:18)
[2022-12-28] MEDS: PANTOPRAZOLE 40 MG TABLET PO SCH (08:35)
[2022-12-28] MEDS: ASPIRIN 81 MG PO SCH (08:35)
[2022-12-28] MEDS: lisinopriL 20 MG TAB PO SCH (08:36)
[2022-12-28] MEDS: METOPROLOL TARTRATE 50 MG TAB PO SCH ×3 (08:36→20:19)
[2022-12-28] MEDS: FERROUS SULFATE 325 MG TAB PO SCH (08:36)
[2022-12-28] MEDS: PATIENT'S OWN (Nilotinib Hcl [Tasigna] 150 MG Capsule) PO SCH (08:39)
[2022-12-28 09:00] LABS: BUN/Creat Ratio 15.18 Ratio (12.00-20.00); Blood Urea Nitrogen 16.7 mg/dL (9.0-27.0); Calcium 9.4 mg/dL (8.7-10.3); Carbon Dioxide 22.6 mmol/L (21.6-31.8); Chloride 104 mmol/L (96-109); Glucose 92 mg/dL (70-110); Potassium 4.9 mmol/L (3.5-5.5); Sodium 137 mmol/L (135-145)
[2022-12-28 11:44] LABS: Glucose,Whole Blood 98 mg/dL (70-110)
--- NOTE | 2022-12-28 12:26 | P.PN ---
Subjective Progress Note Date: 12/28/22 Principal diagnosis: Reason for follow-up is Right big toe diabetic foot infection Patient is a 77-year-old male with a past medical history significant for diabetes mellitus hypertension hyperlipidemia coronary artery disease patient apparently did have a minor surgery on his right big toe for the ingrowing toenail subsequently seemed to have problem with the pain swelling and redness concerning for cellulitis failing outpatient of Bactrim DS therapy On today's evaluation that is 12/28/2022, the patient remains to be afebrile, the patient is breathing comfortably on room air and the patient denies any shortness of breath, the patient denies chest pain or any cough , patient denies abdominal pain, no nausea/vomiting and no diarrhea, the patient and pain to the right big toe has slightly decreased in intensity Patient did have creatinine of 1.1 today Objective - Vital Signs Vital signs: Vital Signs Temp 98.6 F 12/28/22 07:44 Pulse 115 H 12/28/22 07:44 Resp 16 12/28/22 07:44 BP 155/84 12/28/22 07:44 Pulse Ox 99 12/28/22 07:44 FiO2 Intake & Output 12/27/22 12/28/22 12/28/22 18:59 06:59 18:59 Intake Total 120 Balance 120 Weight 74.843 kg Intake: Oral 120 Other: Voiding Method Toilet # Voids 6 - Exam GENERAL DESCRIPTION: An elderly male up in the chair in no distress RESPIRATORY SYSTEM: Unlabored breathing , clear to auscultation anteriorly HEART: S1 S2 regular rate and rhythm , ABDOMEN: Soft , no tenderness EXTREMITIES: Right big toe swelling and redness slightly decreased - Labs CBC & Chem 7: 12/27/22 12:03 12/28/22 04:16 Labs: Abnormal Lab Results - Last 24 Hours (Table) 12/27/22 12/27/22 12/27/22 Range/Units 12:03 12:03 12:03 Lymphocytes # 0.9 L (1.0-4.8) k/uL Eosinophils # 0.8 H (0-0.7) k/uL Sodium 124 L 130 L (137-145) mmol/L Chloride 96 L 95 L (98-107) mmol/L Carbon Dioxide 20 L (22-30) mmol/L BUN 22 H 22 H (9-20) mg/dL Glucose 104 H 104 H (74-99) mg/dL Alkaline Phosphatase 144 H 144 H (38-126) U/L Total Protein 8.4 H 8.4 H (6.3-8.2) g/dL Assessment and Plan (1) Diabetic infection of right foot Current Visit: Yes Status: Acute Code(s): E11.628 - TYPE 2 DIABETES MELLITUS WITH OTHER SKIN COMPLICATIONS; L08.9 - LOCAL INFECTION OF THE SKIN AND SUBCUTANEOUS TISSUE, UNSP SNOMED Code(s): 85577232 (2) Cellulitis of great toe, right Current Visit: Yes Status: Acute Code(s): L03.031 - CELLULITIS OF RIGHT TOE SNOMED Code(s): 76630409 Plan: 1patient presented to hospital with increasing pain to the right big toe in this patient who did have a recent surgery for the right big toe ingrowing toenail and has been treated in the outpatient setting with the Bactrim DS without significant improvement we will need to cover for the polymicrobial ashly usually associated with diabetic foot infection 2-patient seemed to have some clinical improvement we'll continue the patient on IV Unasyn for another 24-hour before transition to oral multiple questions concerned were answered Dictation was produced using [employer] dictation software. please excuse any grammatical, word or spelling errors. Time with Patient: Less than 30
--- NOTE | 2022-12-28 16:12 | P.PN ---
Subjective Progress Note Date: 12/28/22 Hospital Course: 77-year-old male with a history of CML, type 2 diabetes, hypertension, dyslipidemia, CAD status post CABG, prior stenosis status post endarterectomy, GERD, atrial fibrillation presenting with right great toe infection. In the ED, temperature was 97.9, pulse 109, respiratory rate 18, blood pressure 128/76 saturating at 99% on room air. WBC 6.5, hemoglobin 14, platelet 37, sodium 1:30, chloride 95, BUN 22, creatinine 1.1, glucose 104, lactate 1.1, CRP negative, urinalysis negative. Toe x-ray showed no evidence of acute fracture or evidence of osseous erosion to suggest osteomyelitis. Podiatry and ID consulted by ER. Patient also started on IV vancomycin. Patient being admitted for failed outpatient therapy for right great toe cellulitis. Will transition f rom IV vancomycin to IV Unasyn. Subjective: Patient seen and examined at bedside. No acute events overnight. Pertinent positives and negatives as discussed above, a complete review of systems was performed and all other systems are negative. Vitals Signs Reviewed. General: nontoxic, no distress, appears at stated age Derm: warm, dry, right great toe lateral aspect, necrotic, tender and edematous Head: atraumatic, normocephalic, symmetric Eyes: EOMI, no lid lag, anicteric sclera Mouth: no lip lesion, mucus membranes moist Cardiovascular: S1S2 reg, no murmur Lungs: CTA bilateral, no rhonchi, no rales , no accessory muscle use Abdominal: soft, nontender to palpation, no guarding, no appreciable organomegaly Ext: no gross muscle atrophy, no edema, no contractures Neuro: CN II-XI grossly intact, no focal neuro deficits Psych: Alert, oriented, appropriate affect Data Reviewed Today: Pertinent Labs: Potassium 4, creatinine 1.1, sugars range between 92-107 Imaging: No new imaging Assessment and Plan: Active: Right great toe cellulitis, failed outpatient antibiotic therapy -Blood cultures pending -Podiatry consult pending -ID note reviewed, continue IV Unasyn for another 24 hours Mild hyponatremia, resolved Type 2 diabetes -Sliding scale insulin, monitor for hypoglycemia -Hold home antidiabetic medications Chronic: CAD status post CABG Hypertension Dyslipidemia Atrial fibrillation CML DVT ppx: Eliquis Code status: Full code Anticipated discharge place: Pending clinical course Anticipated discharge time: Pending clinical course Objective - Vital Signs Vital signs: Vital Signs Temp 98 F 12/28/22 13:58 Pulse 113 H 12/28/22 13:58 Resp 17 12/28/22 13:58 BP 117/66 12/28/22 13:58 Pulse Ox 98 12/28/22 13:58 FiO2 Intake & Output 12/27/22 12/28/22 12/28/22 18:59 06:59 18:59 Intake Total 120 Balance 120 Weight 74.843 kg Intake: Oral 120 Other: Voiding Method Toilet Toilet # Voids 6 - Labs CBC & Chem 7: 12/27/22 12:03 12/28/22 04:16 Labs: Abnormal Lab Results - Last 24 Hours (Table) 12/28/22 Range/Units 04:16 Hemoglobin A1c 6.4 H (<=6.0) %
[2022-12-28 17:13] LABS: Glucose,Whole Blood 96 mg/dL (70-110)
[2022-12-28 20:13] LABS: Glucose,Whole Blood 130 mg/dL (70-110)
[2022-12-28] MEDS ORDERED: ATORVASTATIN 80 MG TAB PO SCH (21:00)
[2022-12-29 02:54] VITALS: RESP 16
[2022-12-29] MEDS: AMPICILLIN-SULBACTAM 3 GM in SODIUM CHLORIDE 0.9% 100 ML IVPB SCH ×2 (06:03→12:00)
[2022-12-29 07:30] LABS: Glucose,Whole Blood 75 mg/dL (70-110)
[2022-12-29] MEDS: INSULIN ASPART (NovoLOG) 100 UNIT/ML VIAL SQ SCH ×2 (07:41→12:51)
[2022-12-29] MEDS: APIXABAN 5 MG TAB PO SCH (09:24)
[2022-12-29] MEDS: TAMSULOSIN 0.4 MG CAP.ER.24H PO SCH (09:24)
[2022-12-29] MEDS: FERROUS SULFATE 325 MG TAB PO SCH (09:25)
[2022-12-29] MEDS: ASPIRIN 81 MG PO SCH (09:25)
[2022-12-29] MEDS: METOPROLOL TARTRATE 50 MG TAB PO SCH (09:25)
[2022-12-29] MEDS: lisinopriL 20 MG TAB PO SCH (09:25)
[2022-12-29] MEDS: PATIENT'S OWN (Nilotinib Hcl [Tasigna] 150 MG Capsule) PO SCH (09:26)
[2022-12-29] MEDS: PANTOPRAZOLE 40 MG TABLET PO SCH (09:26)
--- NOTE | 2022-12-29 11:24 | P.DS ---
Providers Date of admission: 12/27/22 13:47 Expected date of discharge: 12/29/22 Attending physician: Vinod Crain MD Consults: 12/27/22 14:13 Consult Physician Urgent Consulting Provider: Alexis Stack Consult Reason/Comments: r great toe infection Do you want consulting provider notified?: Yes Consult Physician Urgent Consulting Provider: Petra Dioxn Consult Reason/Comments: r great toe infection Do you want consulting provider notified?: Yes Primary care physician: Anthony Mirza [facility] Course: Discharge Diagnosis: Right great toe cellulitis Mild hyponatremia Type 2 diabetes Hospital Course: 77-year-old male with a history of CML, type 2 diabetes, hypertension, dyslipidemia, CAD status post CABG, prior stenosis status post endarterectomy, GERD, atrial fibrillation presenting with right great toe infection. In the ED, temperature was 97.9, pulse 109, respiratory rate 18, blood pressure 128/76 saturating at 99% on room air. WBC 6.5, hemoglobin 14, platelet 37, sodium 1:30, chloride 95, BUN 22, creatinine 1.1, glucose 104, lactate 1.1, CRP negative, urinalysis negative. Toe x-ray showed no evidence of acute fracture or evidence of osseous erosion to suggest osteomyelitis. ID consulted by ER. Patient also started on IV vancomycin. Patient being admitted for failed outpatient therapy for right great toe cellulitis. He was transitioned to IV Unasyn. Toe erythema and edema improved. No longer having any right toe pain. Patient being discharged home with oral antibiotics. Patient seen and examined at bedside. Vital signs reviewed and stable. General: nontoxic, no distress, appears at stated age Derm: warm, dry, right great toe lateral aspect scab, no longer erythematous or edematous Head: atraumatic, normocephalic, symmetric Eyes: EOMI, no lid lag, anicteric sclera Mouth: no lip lesion, mucus membranes moist Cardiovascular: S1S2 reg, no murmur Lungs: CTA bilateral, no rhonchi, no rales , no accessory muscle use Abdominal: soft, nontender to palpation, no guarding, no appreciable organomegaly Ext: no gross muscle atrophy, no edema, no contractures Neuro: CN II-XI grossly intact, no focal neuro deficits Psych: Alert, oriented, appropriate affect A total of 33 minutes of time were spent preparing this complex discharge summary. Patient was discharged on 12/30/19 at 10:52. Patient Condition at Discharge: Stable Plan - Discharge Summary Discharge Rx Participant: No New Discharge Prescriptions: New Amoxic-Pot Clav 875-125Mg [Augmentin 875-125] 1 tab PO Q12HR 10 Days #20 tab Continue Aspirin 81 mg PO DAILY Apixaban [Eliquis] 5 mg PO BID Nilotinib HCl [Tasigna] 600 mg PO DAILY Tamsulosin HCl [Flomax] 0.4 mg PO BID lisinopriL [Zestril] 20 mg PO DAILY Ferrous Gluconate 324 mg PO DAILY Omeprazole 20 mg PO DAILY Atorvastatin [Lipitor] 80 mg PO HS Metoprolol Tartrate [Lopressor] 50 mg PO TID Discharge Medication List Aspirin 81 mg PO DAILY 11/25/15 [History] Apixaban [Eliquis] 5 mg PO BID 03/30/21 [History] Nilotinib HCl [Tasigna] 600 mg PO DAILY 03/30/21 [History] Omeprazole 20 mg PO DAILY 03/30/21 [History] Tamsulosin HCl [Flomax] 0.4 mg PO BID 03/30/21 [History] Atorvastatin [Lipitor] 80 mg PO HS 12/27/22 [History] Ferrous Gluconate 324 mg PO DAILY 12/27/22 [History] Metoprolol Tartrate [Lopressor] 50 mg PO TID 12/27/22 [History] lisinopriL [Zestril] 20 mg PO DAILY 12/27/22 [History] Amoxic-Pot Clav 875-125Mg [Augmentin 875-125] 1 tab PO Q12HR 10 Days #20 tab 12/28/22 [Rx] Follow up Appointment(s)/Referral(s): Anthony Luong MD [Primary Care Provider] - 1-2 days Petra Dixon MD [STAFF PHYSICIAN] - 1 Week Patient Instructions/Handouts: Cellulitis (GEN) Activity/Diet/Wound Care/Special Instructions: Please see your PCP and ID. Discharge Disposition: HOME SELF-CARE
[2022-12-29 11:40] LABS: Glucose,Whole Blood 104 mg/dL (70-110)
[2022-12-29 13:08] VITALS: BP 129/76; PULSE 92; TEMP 97.3
--- NOTE | 2022-12-29 14:06 | P.PN ---
Subjective Progress Note Date: 12/29/22 Principal diagnosis: Reason for follow-up is Right big toe diabetic foot infection Patient is a 77-year-old male with a past medical history significant for diabetes mellitus hypertension hyperlipidemia coronary artery disease patient apparently did have a minor surgery on his right big toe for the ingrowing toenail subsequently seemed to have problem with the pain swelling and redness concerning for cellulitis failing outpatient of Bactrim DS therapy On today's evaluation that is 12/29/2022, the patient continues to be afebrile, the patient is breathing comfortably on room air and the patient denies chest pain shortness of breath or cough , patient denies nausea/vomiting , no abdominal pain and no diarrhea the patient and pain to the right big toe has decreased in intensity, did have minimal drainage today No labs drawn today Objective - Vital Signs Vital signs: Vital Signs Temp 97.7 F 12/29/22 08:00 Pulse 65 12/29/22 08:00 Resp 16 12/29/22 08:00 BP 136/72 12/29/22 08:00 Pulse Ox 93 L 12/29/22 08:00 FiO2 Intake & Output 12/28/22 12/29/22 12/29/22 18:59 06:59 18:59 Intake Total 1200 Balance 1200 Intake: Oral 1200 Other: Voiding Method Toilet Toilet Toilet # Voids 2 3 - Exam GENERAL DESCRIPTION: An elderly male up in the chair in no distress RESPIRATORY SYSTEM: Unlabored breathing , clear to auscultation anteriorly HEART: S1 S2 regular rate and rhythm , ABDOMEN: Soft , no tenderness EXTREMITIES: Right big toe swelling and redness has decreased did have minimal drainage which was cultured - Labs CBC & Chem 7: 12/27/22 12:03 12/28/22 04:16 Labs: Abnormal Lab Results - Last 24 Hours (Table) 12/28/22 12/28/22 Range/Units 04:16 20:05 POC Glucose (mg/dL) 130 H (70-110) mg/dL Hemoglobin A1c 6.4 H (<=6.0) % Microbiology - Last 24 Hours (Table) 12/27/22 12:03 Blood Culture - Preliminary Blood 12/27/22 12:18 Blood Culture - Preliminary Blood Assessment and Plan (1) Diabetic infection of right foot Status: Acute Code(s): E11.628 - TYPE 2 DIABETES MELLITUS WITH OTHER SKIN COMPLICATIONS; L08.9 - LOCAL INFECTION OF THE SKIN AND SUBCUTANEOUS TISSUE, UNSP SNOMED Code(s): 93186557 (2) Cellulitis of great toe, right Status: Acute Code(s): L03.031 - CELLULITIS OF RIGHT TOE SNOMED Code(s): 83521362 Plan: 1patient presented to hospital with increasing pain to the right big toe in this patient who did have a recent surgery for the right big toe ingrowing toenail and has been treated in the outpatient setting with the Bactrim DS without significant improvement we will need to cover for the polymicrobial ashly usually associated with diabetic foot infection 2-patient has shown clinical improvement he did have minimal drainage which was cultured, results will be followed in the outpatient setting patient will finish therapy with oral Augmentin and close outpatient follow-up Multiple questions and concerns were answered Dictation was produced using [employer] dictation software. please excuse any grammatical, word or spelling errors. Time with Patient: Less than 30
== END 2022-12-29 13:20 | disposition home or self-care (01) ==
LOC: EC 10:38 → 5NMEDONC 13:47
PROVIDERS: ADMIT Student in an Organized Health Care Education/Training Program; ATTEND Student in an Organized Health Care Education/Training Program
DX: L03.031 Cellulitis of right toe (principal); E11.628 Type 2 diabetes mellitus with other skin complications; L08.9 Local infection of the skin and subcutaneous tissue, unspecified; E87.1 Hypo-osmolality and hyponatremia; I25.10 Atherosclerotic heart disease of native coronary artery without angina pectoris; E78.5 Hyperlipidemia, unspecified; I10 Essential (primary) hypertension; K21.9 Gastro-esophageal reflux disease without esophagitis; I48.91 Unspecified atrial fibrillation; Z85.6 Personal history of leukemia; Z95.1 Presence of aortocoronary bypass graft; Z79.899 Other long term (current) drug therapy; Z79.82 Long term (current) use of aspirin; Z79.01 Long term (current) use of anticoagulants; Z79.84 Long term (current) use of oral hypoglycemic drugs; Z88.0 Allergy status to penicillin
CPT/HCPCS: 96361; 96366 ×4; 96367; 96365; 99285; 36415; 93005; 80053; 80048; 83605; 85025; 86140; 81003; 87040; 87070; 87205; 87075; 87077; 87186; 83036; 73660; G0378 ×3; J3370; J0295 ×3

== ENCOUNTER → 2023-01-24 | Outpatient (CLI) | payer MEDICARE ==
[2023-01-24 15:09] LABS: HCT 39.4 % (39.6-50.0); HGB 12.7 g/dL (13.0-17.0); MCH 28.8 pg (27.0-32.0); MCHC 32.2 g/dL (32.0-37.0); MCV 89.3 FL (80.0-97.0); Mean Platelet Volume 10.2 FL (9.5-12.2); NRBC Per 100 WBC 0 X 10*3/uL (0.00-0.01); Platelet Count 198 X 10*3/uL (140-440); RBC 4.41 X 10*6/uL (4.40-5.60); RDW 14.4 % (11.5-14.5); WBC 6.28 X 10*3/uL (4.50-10.00)
[2023-01-24 15:26] LABS: Blood Urea Nitrogen 18.5 mg/dL (9.0-27.0); Carbon Dioxide 26.4 mmol/L (21.6-31.8); Chloride 103 mmol/L (96-109); Potassium 4.8 mmol/L (3.5-5.5); Sodium 140 mmol/L (135-145)
== END | disposition home or self-care (01) ==
LOC: LABPAT 10:47
PROVIDERS: ATTEND Internal Medicine Interventional Cardiology
DX: Z01.812 Encounter for preprocedural laboratory examination (principal); I73.9 Peripheral vascular disease, unspecified
CPT/HCPCS: 36415; 80051; 82565; 84520; 85027

== ENCOUNTER 2023-02-07 07:32 | Day surgery (SDC) | payer MEDICARE ==
[~2023-02-07 07:32] MED LIST changes: +ALPRAZolam 0.25 MG TAB PO PRN; +ASPIRIN 325 MG TAB PO PRN; +HEPARIN SODIUM,PORCINE (1 ML) 2,500 UNIT in SODIUM CHLORIDE 0.9% 250 ML IRRIGATION PRN; +HEPARIN SODIUM,PORCINE 10,000 UNIT in SODIUM CHLORIDE 0.9% 1,000 ML IRRIGATION PRN; -SODIUM CHLORIDE 0.9% 1,000 ML IV SCH; +SODIUM CHLORIDE 0.9% 1,000 ML in EMPTY BAG 1 BAG IV ONE; +ZOLPIDEM 5 MG TAB PO PRN
[2023-02-07 08:24] LABS: Glucose,Whole Blood 105 mg/dL (70-110)
[2023-02-07 08:36] VITALS: RESP 18; TEMP 97.6
[2023-02-07] MEDS ORDERED: LIDOCAINE 1% INJ 10MG/ML (20 ML MDV) SQ ONE (08:41)
[2023-02-07] MEDS ORDERED: MIDAZOLAM 2 MG/2 ML VIAL IVP ONE (08:41)
[2023-02-07] MEDS ORDERED: IOPAMIDOL-250 100ML BTL INTRAARTER ONE (09:00)
[2023-02-07] MEDS ORDERED: NALOXONE 0.4 MG/ML 1 ML VIAL IVP PRN (09:05)
--- NOTE | 2023-02-07 09:11 | P.PCN ---
Date of Procedure: 02/07/23 Operative Findings: AN ABDOMINAL AORTOGRAM AND BILATERAL LOWER EXTREMITIES RUNOFF PERFORMING PHYSICIAN: Ulsies Joel MD PROCEDURE PERFORMED: 1. An abdominal aortogram 2. Bilateral lower extremities runoff 3. Ultrasound guided access of the right common femoral artery INDICATION: Critical limb ischemia of the right foot and bilateral lower extremities intermittent claudication COMPLICATION: None LEVEL OF SEDATION: Moderate was sedation length of 20 minutes APPROACH: Right common femoral artery PROCEDURE DESCRIPTION: After obtaining informed consent and explaining the procedure benefits, risks, and complications, the patient was brought to the cardiac laborer wood preserving plant. The right groin was prepped and draped in sterile fashion. The right common femoral artery was cannulated using micropuncture technique, under ultrasound guidance. A micropuncture wire was advanced, and the micropuncture sheath was advanced over the wire, then the micropuncture sheath was exchanged over an 0.35 wire into a 5-German sheath dilator assembly then the wire and dilator were removed and sheath was flushed. We did an abdominal aortogram and bilateral lower extremities runoff using 5- German pigtail catheter using a power injection. The catheter was initially placed at the level of the renal arteries, and it was pulled into above the bifurcation of the aorta into right and left common iliac arteries. The procedure was completed and there was no complications. SELECTIVE PERIPHERAL ANGIOGRAM: The abdominal aorta: Calcified was mild disease only The common iliac arteries: The right common iliac artery has mild disease only. The left common iliac artery has a critical lesion The external iliac arteries: The right external iliac artery appeared to have mild disease only the left external iliac artery has a critical lesion as well The internal iliac arteries: Both internal iliacs are patent The common femoral arteries: The right common femoral artery has a lesion appeared to be in the range of 70-80%. The left femoral artery appears to have mild disease only Superficial femoral arteries: Both SFA are occluded and reconstituted by the Sree canal Popliteal arteries: Both popliteal appeared to have [id number] disease Below the knees: Two vessels run off below the knee with posterior tibial and peroneal CONCLUSION: Critical disease involving the left common and left external iliac arteries Severe disease involving the right common femoral artery and right profunda femoral Occluded bilateral SFA along segments POSTPROCEDURE MANAGEMENT: 1. Consider balloon angioplasty and stenting of the left common and left external iliac artery 2. Consider endarterectomy of the right profunda and right common femoral artery 3. Consider OVERAGE SHORTAGE AND DAMAGE CLERK of the SFA if the patient remains symptomatic after the above
[2023-02-07] MEDS ORDERED: SODIUM CHLORIDE 0.9% 1,000 ML in EMPTY BAG 1 BAG IV SCH (09:15)
[2023-02-07] MEDS ORDERED: METOPROLOL TARTRATE 50 MG TAB PO STA (10:59)
[2023-02-07 14:25] VITALS: BP 146/74; PULSE 82
--- NOTE | 2023-02-11 11:48 | IR ---
EXAMINATION TYPE: IR angio abdominal w runoff DATE OF EXAM: 02/07/2023 FLUOROSCOPY right leg pain, 2.8min fluoro, [id number]. 151 images provided.
== END 2023-02-07 15:25 | disposition home or self-care (01) ==
LOC: CATHCVL 07:32
PROVIDERS: ATTEND Internal Medicine Interventional Cardiology
DX: I25.10 Atherosclerotic heart disease of native coronary artery without angina pectoris (principal); I73.9 Peripheral vascular disease, unspecified; E78.2 Mixed hyperlipidemia; I10 Essential (primary) hypertension; I34.0 Nonrheumatic mitral (valve) insufficiency; I48.3 Typical atrial flutter; E78.5 Hyperlipidemia, unspecified; F17.210 Nicotine dependence, cigarettes, uncomplicated; Z79.84 Long term (current) use of oral hypoglycemic drugs; Z79.82 Long term (current) use of aspirin; Z79.01 Long term (current) use of anticoagulants
CPT/HCPCS: 36200; 75625; 75716; C1894; C1769 ×3; J2250; J2001; Q9966

== ENCOUNTER → 2023-02-21 | Outpatient (CLI) | payer MEDICARE ==
[2023-02-21 14:52] LABS: HCT 42.1 % (39.6-50.0); HGB 13.4 g/dL (13.0-17.0); MCH 28.2 pg (27.0-32.0); MCHC 31.8 g/dL (32.0-37.0); MCV 88.6 FL (80.0-97.0); Mean Platelet Volume 10.3 FL (9.5-12.2); NRBC Per 100 WBC 0 X 10*3/uL (0.00-0.01); Platelet Count 274 X 10*3/uL (140-440); RBC 4.75 X 10*6/uL (4.40-5.60); WBC 6.74 X 10*3/uL (4.50-10.00)
[2023-02-21 15:06] LABS: Blood Urea Nitrogen 15.3 mg/dL (9.0-27.0); Chloride 100 mmol/L (96-109); Potassium 4.7 mmol/L (3.5-5.5); Sodium 137 mmol/L (135-145)
== END | disposition home or self-care (01) ==
LOC: LABPAT 10:09
PROVIDERS: ATTEND Internal Medicine Interventional Cardiology
DX: Z01.812 Encounter for preprocedural laboratory examination (principal); I73.9 Peripheral vascular disease, unspecified
CPT/HCPCS: 36415; 80051; 82565; 84520; 85027

== ENCOUNTER 2023-03-08 07:24 | Day surgery (SDC) | payer MEDICARE ==
[~2023-03-08 07:24] MED LIST changes: +ALPRAZolam 0.5 MG TAB PO PRN; -HEPARIN SODIUM,PORCINE (1 ML) 2,500 UNIT in SODIUM CHLORIDE 0.9% 250 ML IRRIGATION PRN; -HEPARIN SODIUM,PORCINE 10,000 UNIT in SODIUM CHLORIDE 0.9% 1,000 ML IRRIGATION PRN; -ZOLPIDEM 5 MG TAB PO PRN
[2023-03-08] MEDS ORDERED: SODIUM CHLORIDE 0.9% 1,000 ML IV ONE (07:58)
[2023-03-08] MEDS ORDERED: LIDOCAINE 1% INJ 10MG/ML (20 ML MDV) ONE (08:34)
[2023-03-08] MEDS ORDERED: HEPARIN SODIUM 1,000 UN/ML (10ML VL) ONE (08:34)
[2023-03-08] MEDS ORDERED: MIDAZOLAM 2 MG/2 ML VIAL IVP ONE (08:57)
[2023-03-08] MEDS ORDERED: LIDOCAINE 1% INJ 10MG/ML (20 ML MDV) SQ ONE (08:57)
[2023-03-08] MEDS ORDERED: HEPARIN SODIUM 1,000 UN/ML (10ML VL) IV ONE (09:00)
[2023-03-08] MEDS ORDERED: CLOPIDOGREL 75 MG TAB ONE (09:40)
[2023-03-08] MEDS ORDERED: CLOPIDOGREL 75 MG TAB PO ONE (09:45)
[2023-03-08] MEDS ORDERED: IOPAMIDOL-370 100ML BTL INJ ONE (09:46)
[2023-03-08] MEDS ORDERED: NALOXONE 0.4 MG/ML 1 ML VIAL IVP PRN (09:48)
[2023-03-08] MEDS ORDERED: hydrALAZINE HCL 20 MG/ML 1 ML VIAL ONE (09:51)
--- NOTE | 2023-03-08 09:58 | P.PCN ---
Date of Procedure: 03/08/23 Operative Findings: PERCUTANEOUS PERIPHERAL INTERVENTION Performing physician Ulises Joel M.D. Procedure performed 1. Successful stenting of the left common iliac artery using 7.0 x 26 mm balloon expandable stent which was postdilated using 9 mm balloon with an excellent angiographic results 2. Successful stenting of the left external iliac artery using 8.0 x 40 mm self-expandable stent with an excellent angiographic results 3. Adjunctive use of intravascular imaging 4. Left common and left external and left common iliac angiogram 5. Ultrasound-guided access of the left common femoral artery Indication The patient is a pleasant 77-year-old gentleman who sees Dr. Guido on a regular basis who was diagnosis into severe symptomatic lower extremity is peripheral arterial disease. He underwent an angiogram and that revealed critical disease involving the left common and left external iliac artery and also severe disease involving the right common femoral artery he was brought today to undergo an intervention of the left iliac system. Approach Left common femoral artery Complications None Level of sedation Moderate with a sedation time of 40 to minutes Procedure description After obtaining an informed consent the patient was brought to the cardiac director of labor and delivery. The left common femoral artery was cannulated using puncture technique under ultrasound guidance the micro-rupture wire passed easily then I placed or advanced an 035 stiff Glidewire through the sheath and then I did exchange my micropuncture sheath into a 6-Cameroonian 23 cm bright tip sheath using 035 stiff Glidewire. Subsequently across the lesion in the left common iliac artery using 035 stiff Glidewire with a backup support of 035 catheter. Then I did exchange my 035 wire into 014 wire using the 035 catheter. Please note that anticoagulation was initiated at the beginning postprocedure and the patient was given heparin with continuous ACT monitoring. After that I did intravascular ultrasound of the left common and left external iliac artery which showed a diameter of the left common around 9 mm and left external around 7 mm. The arteries were not heavily calcified and for that reason I did not do shockwave balloon. After that I did balloon angioplasty using 6 mm noncompliant balloon for both the left common and left external iliac arteries. Then an angiogram was performed. Then I deployed for the left common iliac artery 7.0 x 26 mm bal loon expandable stent which was postdilated subsequently using 9 mm balloon and for left external iliac artery I deployed a 8.0 x 40 mm self-expandable stent which was postdilated using 7 mm balloon. Final angiogram was performed and showed excellent angiographic results and the procedure was completed was no complication. After that I did exchange my 23 cm sheath into an 11 cm sheath using 035 stiff Glidewire and finally I did selective left common femoral artery angiogram. The procedure was completed was no complication Postprocedure management 1. Dual antiplatelet therapy 2. Aggressive cholesterol control 3. Risk factors modification 4. Follow-up with the patient
[2023-03-08] MEDS ORDERED: SODIUM CHLORIDE 0.9% 1,000 ML in EMPTY BAG 1 BAG IV SCH (10:00)
[2023-03-08] MEDS ORDERED: hydrALAZINE HCL 20 MG/ML 1 ML VIAL IV ONE (10:10)
[2023-03-08] MEDS ORDERED: FERROUS SULFATE 325 MG TAB PO SCH (12:00)
[2023-03-08] MEDS: METOPROLOL TARTRATE 50 MG TAB PO SCH ×2 (16:26→20:23)
--- NOTE | 2023-03-08 16:46 | IR ---
EXAMINATION TYPE: IR stent intravas non coronary DATE OF EXAM: 03/08/2023 FLUOROSCOPY left iliac stent. 11.5min fluoro, 18.4Gycm2. 623 images submitted.
[2023-03-08] MEDS: NON FORMULARY DRUG (Nilotinib Hcl [Tasigna] 150 MG Capsule) PO SCH (20:23)
[2023-03-08] MEDS ORDERED: TAMSULOSIN 0.4 MG CAP.ER.24H PO SCH (21:00)
[2023-03-08] MEDS ORDERED: CINNAMON CHROMIUM PO SCH (21:00)
[2023-03-08] MEDS ORDERED: [UNRECOGNIZED DRUG - OTHER] PO SCH (21:00)
[2023-03-08] MEDS ORDERED: ATORVASTATIN 80 MG TAB PO SCH (21:00)
[2023-03-09 03:04] VITALS: RESP 16; TEMP 98.1
[2023-03-09 04:01] LABS: African American GFR (CKD) >90 (>60 ml/min/1.73 sqM); Non-African American GFR(CKD) 85 (>60 ml/min/1.73 sqM)
[2023-03-09] MEDS ORDERED: PANTOPRAZOLE 40 MG TABLET PO SCH (07:30)
--- NOTE | 2023-03-09 08:18 | P.DS ---
Providers Attending physician: Ulises Joel Primary care physician: [facility] Course: The patient is a pleasant 77-year-old gentleman who underwent yesterday successful stenting of the left common and left external iliac arteries with an excellent angiographic results from left groin approach He was seen and evaluated this morning. He is doing well. He is asymptomatic. He is hemodynamically stable. The left groin is soft and nontender was no bruises. The patient is going to be discharged home on antiplatelet and low-dose anticoagulation and statin and he will follow-up with Dr. Guido in the office Plan - Discharge Summary Discharge Rx Participant: No New Discharge Prescriptions: New Apixaban [Eliquis] 2.5 mg PO BID #180 tab Clopidogrel [Plavix] 75 mg PO DAILY #180 tablet Continue Aspirin 81 mg PO QAM Nilotinib HCl [Tasigna] 300 mg PO BID Tamsulosin HCl [Flomax] 0.4 mg PO HS lisinopriL [Zestril] 20 mg PO QAM Ferrous Gluconate 324 mg PO 1200 Unk Cinnamon Chromium 2 tab PO BID Unk Milk Thistle 175 mg PO BID Omeprazole 20 mg PO QAM Atorvastatin [Lipitor] 80 mg PO HS Metoprolol Tartrate [Lopressor] 50 mg PO TID Discontinued Apixaban [Eliquis] 5 mg PO BID Discharge Medication List Aspirin 81 mg PO QAM 11/25/15 [History] Nilotinib HCl [Tasigna] 300 mg PO BID 03/30/21 [History] Omeprazole 20 mg PO QAM 03/30/21 [History] Tamsulosin HCl [Flomax] 0.4 mg PO HS 03/30/21 [History] Atorvastatin [Lipitor] 80 mg PO HS 12/27/22 [History] Ferrous Gluconate 324 mg PO 1200 12/27/22 [History] Metoprolol Tartrate [Lopressor] 50 mg PO TID 12/27/22 [History] lisinopriL [Zestril] 20 mg PO QAM 12/27/22 [History] Unk Cinnamon Chromium 2 tab PO BID 02/01/23 [History] Unk Milk Thistle 175 mg PO BID 02/01/23 [History] Apixaban [Eliquis] 2.5 mg PO BID #180 tab 03/09/23 [Rx] Clopidogrel [Plavix] 75 mg PO DAILY #180 tablet 03/09/23 [Rx] Follow up Appointment(s)/Referral(s): Ran Guido MD [STAFF PHYSICIAN] - 1 Week
[2023-03-09 08:19] VITALS: BP 159/85; PULSE 110
[2023-03-09] MEDS: NON FORMULARY DRUG (Nilotinib Hcl [Tasigna] 150 MG Capsule) PO SCH (08:34)
[2023-03-09] MEDS: METOPROLOL TARTRATE 50 MG TAB PO SCH (08:41)
[2023-03-09] MEDS ORDERED: lisinopriL 20 MG TAB PO SCH (09:00)
[2023-03-09] MEDS ORDERED: ASPIRIN 81 MG PO SCH (09:00)
== END 2023-03-09 10:41 | disposition home or self-care (01) ==
LOC: CATHCVL 07:24 → 6NMEDSUR 09:36 → CATHCVL 03-09 10:41
PROVIDERS: ATTEND Internal Medicine Interventional Cardiology
DX: I73.9 Peripheral vascular disease, unspecified (principal); I10 Essential (primary) hypertension; E78.5 Hyperlipidemia, unspecified; F17.210 Nicotine dependence, cigarettes, uncomplicated; Z79.01 Long term (current) use of anticoagulants; Z79.82 Long term (current) use of aspirin; Z79.899 Other long term (current) drug therapy
CPT/HCPCS: 37221; 37223; 76937; 37252; 37253; 82565; C1769 ×5; C1894 ×2; C1725; C1753; C1874 ×2; J2250; J0360; J2001; J1644; Q9967

== ENCOUNTER 2024-02-13 08:15 | Inpatient (IN) | payer MEDICARE ==
[2024-02-13 09:22] LABS: Anisocytosis Slight; Basophils # (A) 0.1 k/uL (0-0.2); Basophils % (A) 1 %; Eosinophils # (A) 0.2 k/uL (0-0.7); Eosinophils % (A) 2 %; HCT 45.1 % (39.0-53.0); HGB 14.6 gm/dL (13.0-17.5); Lymphocytes # (A) 0.7 k/uL (1.0-4.8); Lymphocytes % (A) 9 %; MCH 29.4 pg (25.0-35.0); MCHC 32.3 g/dL (31.0-37.0); Mean Platelet Volume 8.1; Monocytes # (A) 0.7 k/uL (0-1.0); Monocytes % (A) 10 %; Neutrophils # (A) 5.7 k/uL (1.3-7.7); Neutrophils % (A) 76 %; Platelet Count 159 k/uL (150-450); RBC 4.95 m/uL (4.30-5.90); RDW 17.1 % (11.5-15.5); WBC 7.5 k/uL (3.8-10.6)
[2024-02-13 09:29] LABS: ALT 30 U/L (4-49); AST 39 U/L (17-59); African American GFR (CKD) 72 (>60 ml/min/1.73 sqM); Albumin 4.6 g/dL (3.5-5.0); Alkaline Phosphatase 307 U/L (38-126); Anion Gap 12 mmol/L; Blood Urea Nitrogen 24 mg/dL (9-20); Calcium 9.7 mg/dL (8.4-10.2); Carbon Dioxide 25 mmol/L (22-30); Chloride 106 mmol/L (98-107); Glucose 84 mg/dL (74-99); INR 1.2 (<1.2); Magnesium 2.2 mg/dL (1.6-2.3); Non-African American GFR(CKD) 62 (>60 ml/min/1.73 sqM); Partial Thromboplastin Time 24.2 sec (22.0-30.0); Potassium 4.2 mmol/L (3.5-5.1); Prothrombin Time 12.9 sec (10.0-12.5); Sodium 143 mmol/L (137-145); Total Protein 7.8 g/dL (6.3-8.2)
[2024-02-13 09:37] LABS: NT-Pro-B-Type Natriuretic Pept 11500 pg/mL
--- NOTE | 2024-02-13 09:53 | XR ---
EXAMINATION TYPE: XR chest 2V DATE OF EXAM: 02/13/2024 9:49 AM COMPARISON: Chest x-ray 2016 CLINICAL INDICATION: Male, 78 years old with history of difficulty breathing, TECHNIQUE: Frontal and lateral views of the chest are obtained. FINDINGS: Overlying sternal wires with broken superior one are redemonstrated. Underlying emphysemat ous changes not excluded on lateral view. There is no suspicious focal air space opacity or pneumotho rax seen. New small right pleural effusion. The cardiac silhouette size is mildly enlarged. The oss eous structures are intact. IMPRESSION: Mild cardiomegaly with new small right pleural effusion. [facility], , 02/13/2024 9:51 AM
[2024-02-13 10:03] LABS: Appearance,Urine Clear (Clear); Bilirubin,Urine Negative (Negative); Blood,Urine Negative (Negative); Color,Urine Light Yellow; Glucose,Urine (UA) 4+ (Negative); Ketones,Urine Negative (Negative); Leukocyte Esterase,Urine Negative (Negative); Nitrite,Urine Negative (Negative); PH, Urine 5.5 (5.0-8.0); Protein,Urine Trace (Negative); Specific Gravity,Urine 1.009 (1.001-1.035); Urobilinogen,Urine <2.0 mg/dL (<2.0)
[2024-02-13] MEDS ORDERED: NALOXONE 0.4 MG/ML 1 ML VIAL IV PRN ×2 (10:59→11:00)
--- NOTE | 2024-02-13 10:59 | ED ---
General Adult HPI - General Chief complaint: Shortness of Breath Stated complaint: SHORTNESS OF BREATH Time Seen by Provider: 02/13/24 09:05 Source: patient, RN notes reviewed, old records reviewed Mode of arrival: ambulatory Limitations: no limitations - History of Present Illness Initial comments: Patient is an 78-year-old male who presents emergency department complaining of exertional dyspnea that is progressively gotten worse over the last month or so. He has a history of atrial fibrillation on blood thinners, diabetes, hypertension, hyperlipidemia, CAD with CABG. He was diagnosed with panic attacks or anxiety issues but states this does not necessarily feel similar to this. States he only notices it after exertion. Endorses orthopnea as well. Endorses lower extremity edema. Once again this is helping progressively worsening over the last month or so. Denies any other complaints including denying chest pain, fevers, chills, cough. Presents for further evaluation at this time. - Related Data Home Medications Medication Instructions Recorded Confirmed Nilotinib HCl [Tasigna] 300 mg PO BID 03/30/21 02/13/24 Omeprazole 20 mg PO BID 03/30/21 02/13/24 Tamsulosin HCl [Flomax] 0.8 mg PO HS 03/30/21 02/13/24 Metoprolol Tartrate [Lopressor] 50 mg PO BID 12/27/22 02/13/24 lisinopriL [Zestril] 20 mg PO DAILY 12/27/22 02/13/24 Apixaban [Eliquis] 5 mg PO BID 02/13/24 02/13/24 Aspirin EC [Ecotrin Low Dose] 81 mg PO DAILY 02/13/24 02/13/24 Atorvastatin [Lipitor] 40 mg PO HS 02/13/24 02/13/24 Cinnamon Bark [Cinnamon] 1,000 mg PO BID 02/13/24 02/13/24 Clopidogrel [Plavix] 75 mg PO DAILY 02/13/24 02/13/24 Empagliflozin [Jardiance] 25 mg PO DAILY 02/13/24 02/13/24 Milk Thistle 150 mg PO DAILY 02/13/24 02/13/24 guaiFENesin [Mucinex] 600 mg PO Q12H 02/13/24 02/13/24 polyethylene glycoL 3350 [Miralax] 17 gm PO DAILY PRN 02/13/24 02/13/24 Allergies Allergy/AdvReac Type Severity Reaction Status Date / Time No Known Allergies Allergy Verified 02/13/24 10:55 Review of Systems ROS Statement: Those systems with pertinent positive or pertinent negative responses have been documented in the HPI. Review of Systems: CONST: Denies fever EYES: Denies blurry vision ENT: Denies nasal congestion C/V: Denies Chest pain RESP: Endorses exertional dyspnea GI: Denies abdominal pain : Denies dysuria SKIN: Denies rash. MSK: Denies joint pain. NEURO: Denies headache ROS Other: All systems not noted in ROS Statement are negative. Past Medical History Past Medical History: Atrial Fibrillation, Coronary Artery Disease (CAD), Cancer, Diabetes Mellitus, GERD/Reflux, Hyperlipidemia, Hypertension, Vascular Disorder Additional Past Medical History / Comment(s): , hx admission for "critically" low sodium per psouse 5yrs ago, leukemia, grt toe rt foot -finishing up abx for infection. bph History of Any Multi-Drug Resistant Organisms: None Reported Past Surgical History: Coronary Bypass/CABG, Heart Catheterization, Tonsillectomy Additional Past Surgical History / Comment(s): 1999 CABG, right carotid endartectomy- 1999, stent in rt carotid. Past Anesthesia/Blood Transfusion Reactions: No Reported Reaction, Motion Sickness Date of Last Stent Placement:: 2017 Past Psychological History: No Psychological Hx Reported Past Alcohol Use History: Occasional - Past Family History Father Family Medical History: Myocardial Infarction ([place]) Additional Family Medical History / Comment(s): heart problems Mother Family Medical History: Diabetes Mellitus Additional Family Medical History / Comment(s): heart problems General Exam - General Exam Comments Initial Comments: General: Appears in no acute distress. HEAD: Normal with no signs of head trauma. EYES: PERRLA, EOMI, conjunctiva normal, no discharge. ENT: Hearing grossly intact, normal oropharynx. RESPIRATORY: Clear breath sounds bilaterally. No wheezes, rales, or rhonchi. No significant hypoxia or increased work of breathing. C/V: Regular rate and rhythm. S1 and S2 auscultated, bilateral lower extremity pitting edema noted throughout the calfs., peripheral pulses 2+ and intact throughout ABD: Abd is soft, nontender, nondistended EXT: Normal range of motion, no obvious deformity SKIN: No rashes or lesions observed on exposed skin. NEURO: Alert and oriented x 4. Limitations: no limitations Course Vital Signs 02/13/24 02/13/24 02/13/24 08:23 08:37 10:32 Temperature 97.5 F L Pulse Rate 98 99 98 Respiratory 16 20 18 Rate Blood Pressure 152/94 158/101 165/106 O2 Sat by Pulse 98 99 98 Oximetry 02/13/24 11:41 Temperature Pulse Rate 97 Respiratory 22 Rate Blood Pressure 180/113 O2 Sat by Pulse 98 Oximetry Medical Decision Making - Medical Decision Making Was pt. sent in by a medical professional or institution (, PA, SALES ACCOUNT MANAGER, urgent care, hospital, or long term...) When possible be specific @ -No Did you speak to anyone other than the patient for history (EMS, parent, family, police, friend...)? What history was obtained from this source @ -No Did you review nursing and triage notes (agree or disagree)? Why? @ -I reviewed and agree with nursing and triage notes Were old charts reviewed (outside hosp., previous admission, EMS record, old EKG, old radiological studies, urgent care reports/EKG's, long term records)? Report findings @ -No old charts were reviewed Differential Diagnosis (chest pain, altered mental status, abdominal pain women, abdominal pain men, vaginal bleeding, weakness, fever, dyspnea, syncope, headache, dizziness, GI bleed, back pain, seizure, CVA, palpatations, mental health, musculoskeletal)? @ -Differential Dyspnea: Coronary syndrome, arrhythmia, tamponade, asthma, COPD, pulmonary embolism, pneumonia, pneumothorax, pulmonary effusion, anaphylaxis, diabetic ketoacidosis, flailed chest, pulmonary contusion, diaphragmatic rupture, anemia, neuromuscular, this is not meant to be an all-inclusive list. EKG interpreted by me (3pts min.). @ -As above X-rays interpreted by me (1pt min.). @ -Patient has a small right-sided pleural effusion. No significant pulmonary vascular congestion. CT interpreted by me (1pt min.). @ -None done U/S interpreted by me (1pt. min.). @ -None done What testing was considered but not performed or refused? (CT, X-rays, U/S, labs)? Why? @ -None What meds were considered but not given or refused? Why? @ -None Did you discuss the management of the patient with other professionals (professionals i.e. , PA, SALES ACCOUNT MANAGER, lab, RT, psych nurse, director social, system support technician, teacher, forest fire officer, major case detective)? Give summary @ -Discussed with the admitting provider, Dr. Crain who accepted the admission. Was smoking cessation discussed for >3mins.? @ -No Was critical care preformed (if so, how long)? @ -No Were there social determinants of health that impacted care today? How? (Homelessness, low income, unemployed, alcoholism, drug addiction, transportation, low edu. Level, literacy, decrease access to med. care, half-way, rehab)? @ -No Was there de-escalation of care discussed even if they declined (Discuss DNR or withdrawal of care, Hospice)? DNR status @ -No What co-morbidities impacted this encounter? (DM, HTN, Smoking, COPD, CAD, Cancer, CVA, ARF, Chemo, Hep., AIDS, mental health diagnosis, sleep apnea, morbid obesity)? @ -None Was patient admitted / discharged? Hospital course, mention meds given and route, prescriptions, significant lab abnormalities, going to OR and other pertinent info. @ -Based on the patient's presentation and physical exam, presents emergency department with exertional dyspnea. Seems to be congestive heart failure like, as the patient is having orthopnea, lower extremity edema, exertional dyspnea. We will obtain cardiopulmonary workup. Patient was in agreement this plan. Vitals are within acceptable limits. EKG shows no signs of acute ischemia. Chest x-ray shows small right-sided pleural effusion. Laboratory studies remarkable for an undetectable troponin. BNP is 11,500. Remainder the workup unremarkable. Discussed with the patient he will be admitted for evaluation for CHF, was started on IV Lasix. Echo ordered. Patient was in agreement this plan. Cardiology consulted. Patient admitted to Dr. Crain who accepted the admission. Undiagnosed new problem with uncertain prognosis? @ -No Drug Therapy requiring intensive monitoring for toxicity (Heparin, Nitro, Insulin, Cardizem)? @ -No Were any procedures done? @ -No Diagnosis/symptom? @ -CHF, pleural effusion Acute, or Chronic, or Acute on Chronic? @ -Acute Uncomplicated (without systemic symptoms) or Complicated (systemic symptoms)? @ -Complicated Side effects of treatment? @ -No Exacerbation, Progression, or Severe Exacerbation? @ -No Poses a threat to life or bodily function? How? (Chest pain, [place], PR, pneumonia, PE, COPD, DKA, ARF, appy, cholecystitis, CVA, Diverticulitis, Homicidal, Suic idal, threat to staff... and all critical care pts) @ -Yes - Lab Data Result diagrams: 02/13/24 09:05 02/13/24 09:05 Lab Results 02/13/24 02/13/24 02/13/24 Range/Units 09:05 09:05 09:05 WBC 7.5 (3.8-10.6) k/uL RBC 4.95 (4.30-5.90) m/uL Hgb 14.6 (13.0-17.5) gm/dL Hct 45.1 (39.0-53.0) % MCV 91.0 (80.0-100.0) fL MCH 29.4 (25.0-35.0) pg MCHC 32.3 (31.0-37.0) g/dL RDW 17.1 H (11.5-15.5) % Plt Count 159 (150-450) k/uL MPV 8.1 Neutrophils % 76 % Lymphocytes % 9 % Monocytes % 10 % Eosinophils % 2 % Basophils % 1 % Neutrophils # 5.7 (1.3-7.7) k/uL Lymphocytes # 0.7 L (1.0-4.8) k/uL Monocytes # 0.7 (0-1.0) k/uL Eosinophils # 0.2 (0-0.7) k/uL Basophils # 0.1 (0-0.2) k/uL Anisocytosis Slight PT 12.9 H (10.0-12.5) sec INR 1.2 H (<1.2) APTT 24.2 (22.0-30.0) sec Sodium 143 (137-145) mmol/L Potassium 4.2 (3.5-5.1) mmol/L Chloride 106 (98-107) mmol/L Carbon Dioxide 25 (22-30) mmol/L Anion Gap 12 mmol/L BUN 24 H (9-20) mg/dL Creatinine 1.12 (0.66-1.25) mg/dL Est GFR (CKD-EPI)AfAm 72 (>60 ml/min/1.73 sqM) Est GFR (CKD-EPI)NonAf 62 (>60 ml/min/1.73 sqM) Glucose 84 (74-99) mg/dL Plasma Lactic Acid Esau (0.7-2.0) mmol/L Calcium 9.7 (8.4-10.2) mg/dL Magnesium 2.2 (1.6-2.3) mg/dL Total Bilirubin 3.0 H (0.2-1.3) mg/dL AST 39 (17-59) U/L ALT 30 (4-49) U/L Alkaline Phosphatase 307 H (38-126) U/L Troponin I (0.000-0.034) ng/mL NT-Pro-B Natriuret Pep 10970 pg/mL Total Protein 7.8 (6.3-8.2) g/dL Albumin 4.6 (3.5-5.0) g/dL Urine Color Urine Appearance (Clear) Urine pH (5.0-8.0) Ur Specific [place] (1.001-1.035) Urine Protein (Negative) Urine Glucose (UA) (Negative) Urine Ketones (Negative) Urine Blood (Negative) Urine Nitrite (Negative) Urine Bilirubin (Negative) Urine Urobilinogen (<2.0) mg/dL Ur Leukocyte Esterase (Negative) Influenza Type A (PCR) (Not Detectd) Influenza Type B (PCR) (Not Detectd) RSV (PCR) (Not Detectd) SARS-CoV-2 (PCR) (Not Detectd) 02/13/24 02/13/24 02/13/24 Range/Units 09:05 09:05 09:25 WBC (3.8-10.6) k/uL RBC (4.30-5.90) m/uL Hgb (13.0-17.5) gm/dL Hct (39.0-53.0) % MCV (80.0-100.0) fL MCH (25.0-35.0) pg MCHC (31.0-37.0) g/dL RDW (11.5-15.5) % Plt Count (150-450) k/uL MPV Neutrophils % % Lymphocytes % % Monocytes % % Eosinophils % % Basophils % % Neutrophils # (1.3-7.7) k/uL Lymphocytes # (1.0-4.8) k/uL Monocytes # (0-1.0) k/uL Eosinophils # (0-0.7) k/uL Basophils # (0-0.2) k/uL Anisocytosis PT (10.0-12.5) sec INR (<1.2) APTT (22.0-30.0) sec Sodium (137-145) mmol/L Potassium (3.5-5.1) mmol/L Chloride (98-107) mmol/L Carbon Dioxide (22-30) mmol/L Anion Gap mmol/L BUN (9-20) mg/dL Creatinine (0.66-1.25) mg/dL Est GFR (CKD-EPI)AfAm (>60 ml/min/1.73 sqM) Est GFR (CKD-EPI)NonAf (>60 ml/min/1.73 sqM) Glucose (74-99) mg/dL Plasma Lactic Acid Esau 1.7 (0.7-2.0) mmol/L Calcium (8.4-10.2) mg/dL Magnesium (1.6-2.3) mg/dL Total Bilirubin (0.2-1.3) mg/dL AST (17-59) U/L ALT (4-49) U/L Alkaline Phosphatase (38-126) U/L Troponin I <0.012 (0.000-0.034) ng/mL NT-Pro-B Natriuret Pep pg/mL Total Protein (6.3-8.2) g/dL Albumin (3.5-5.0) g/dL Urine Color Urine Appearance (Clear) Urine pH (5.0-8.0) Ur Specific [place] (1.001-1.035) Urine Protein (Negative) Urine Glucose (UA) (Negative) Urine Ketones (Negative) Urine Blood (Negative) Urine Nitrite (Negative) Urine Bilirubin (Negative) Urine Urobilinogen (<2.0) mg/dL Ur Leukocyte Esterase (Negative) Influenza Type A (PCR) Not Detected (Not Detectd) Influenza Type B (PCR) Not Detected (Not Detectd) RSV (PCR) Not Detected (Not Detectd) SARS-CoV-2 (PCR) Not Detected (Not Detectd) 02/13/24 Range/Units 09:51 WBC (3.8-10.6) k/uL RBC (4.30-5.90) m/uL Hgb (13.0-17.5) gm/dL Hct (39.0-53.0) % MCV (80.0-100.0) fL MCH (25.0-35.0) pg MCHC (31.0-37.0) g/dL RDW (11.5-15.5) % Plt Count (150-450) k/uL MPV Neutrophils % % Lymphocytes % % Monocytes % % Eosinophils % % Basophils % % Neutrophils # (1.3-7.7) k/uL Lymphocytes # (1.0-4.8) k/uL Monocytes # (0-1.0) k/uL Eosinophils # (0-0.7) k/uL Basophils # (0-0.2) k/uL Anisocytosis PT (10.0-12.5) sec INR (<1.2) APTT (22.0-30.0) sec Sodium (137-145) mmol/L Potassium (3.5-5.1) mmol/L Chloride (98-107) mmol/L Carbon Dioxide (22-30) mmol/L Anion Gap mmol/L BUN (9-20) mg/dL Creatinine (0.66-1.25) mg/dL Est GFR (CKD-EPI)AfAm (>60 ml/min/1.73 sqM) Est GFR (CKD-EPI)NonAf (>60 ml/min/1.73 sqM) Glucose (74-99) mg/dL Plasma Lactic Acid Esau (0.7-2.0) mmol/L Calcium (8.4-10.2) mg/dL Magnesium (1.6-2.3) mg/dL Total Bilirubin (0.2-1.3) mg/dL AST (17-59) U/L ALT (4-49) U/L Alkaline Phosphatase (38-126) U/L Troponin I (0.000-0.034) ng/mL NT-Pro-B Natriuret Pep pg/mL Total Protein (6.3-8.2) g/dL Albumin (3.5-5.0) g/dL Urine Color Light Yellow Urine Appearance Clear (Clear) Urine pH 5.5 (5.0-8.0) Ur Specific [place] 1.009 (1.001-1.035) Urine Protein Trace H (Negative) Urine Glucose (UA) 4+ H (Negative) Urine Ketones Negative (Negative) Urine Blood Negative (Negative) Urine Nitrite Negative (Negative) Urine Bilirubin Negative (Negative) Urine Urobilinogen <2.0 (<2.0) mg/dL Ur Leukocyte Esterase Negative (Negative) Influenza Type A (PCR) (Not Detectd) Influenza Type B (PCR) (Not Detectd) RSV (PCR) (Not Detectd) SARS-CoV-2 (PCR) (Not Detectd) - EKG Data -: EKG Interpreted by Me EKG Comments: 12-lead Electrocardiogram Interpretation Note EKG was reviewed and interpreted by myself. 12-lead ECG performed at 0851 is interpreted by me as revealing normal sinus rhythm with occasional PVC at a rate of 98 beats per minute. Left axis deviation. LA interval is 152 ms. QRS duration is 121 ms, QTc is 465 ms. There were no ST or T wave abnormalities to suggest myocardial ischemia or injury. R wave progression across the precordium was satisfactory. By my interpretation this EKG is non-diagnostic for acute ischemia. Disposition Clinical Impression: CHF (congestive heart failure), Pleural effusion Disposition: ADMITTED IP TO THIS HOSP Condition: Stable Time of Disposition: 10:58
[2024-02-13] MEDS ORDERED: ONDANSETRON 4 MG/2 ML VIAL IVP PRN (11:00)
[2024-02-13] MEDS: FUROSEMIDE 10 MG/ML 4 ML VIAL IV STA (11:46)
[2024-02-13] MEDS ORDERED: polyethylene glycoL 3350 17 GM POWD.PACK PO PRN (13:51)
[2024-02-13] MEDS ORDERED: MELATONIN 3 MG TABLET PO PRN (13:54)
[2024-02-13] MEDS ORDERED: ACETAMINOPHEN TAB 325 MG TAB PO PRN (13:54)
[2024-02-13] MEDS ORDERED: PROCHLORPERAZINE 5 MG TAB PO PRN (13:54)
[2024-02-13] MEDS ORDERED: DEXTROSE 50% SYRINGE 50 ML IVP PRN ×2 (13:57)
--- NOTE | 2024-02-13 13:57 | P.HPIM ---
History of Present Illness H&P Date: 02/13/24 Patient is an 78-year-old male with past medical history of type II DM, HTN, HLD, CAD s/p CABG, prior stenting, status post antrectomy, GERD, A-fib,, PAD status post left external iliac stents 04/01,] who presented to the ED with shortness of breath and bilateral lower extremity edema ongoing for the past 1 month, symptoms started gradually. Patient reports orthopnea, he gets short of breath while going up half of a flight of stairs, he denies weight changes, diet changes except for eating more ham during [place] time. He was seen in urgent care January 27 and was prescription prescribed azithromycin and completed course with no improvement, however, patient stated that his chest x-ray was interpreted as normal at that time. He denies fevers, chills, sick contacts, cough, abdominal pain, chest pain, dysuria. In the ER patient was afebrile, satting well on room air, heart rate in 90s, BP elevated 152/94. EKG showed sinus rhythm with PVCs, no ST elevation. Chest x-ray showed mild cardiomegaly with new small right pleural effusion. His CBC was unremarkable, normal electrolytes, normal creatinine, troponin negative x 2, NT proBNP elevated 11,500. Urinalysis with trace proteinuria and glucosuria. Viral panel negative. Patient received 1 dose of IV Lasix 40 in the ER, cardiology was consulted by ER, TTE ordered. Patient is admitted for management of acute CHF exacerbation. Pertinent positives and negatives as discussed in HPI, a complete review of systems was performed and all other systems are negative. Patient seen and examined at bedside. Vital signs reviewed General: nontoxic, no distress, appears at stated age Derm: warm, dry Head: atraumatic, normocephalic, symmetric Eyes: EOMI, no lid lag, anicteric sclera, pupils equal round reactive to light ENT: Nose and ears atraumatic Neck: No thyromegaly, supple Mouth: no lip lesion, mucus membranes moist Cardiovascular: S1S2 reg, no murmur, no edema Lungs: clear to auscultation bilateral, no rhonchi, no rales, no wheeze, no accessory muscle use Abdominal: soft, nontender to palpation, no guarding, no appreciable organomegaly Ext: no gross muscle atrophy, muscle strength muscle strength 5 out of 5 in all 4 extremities, no contractures bilateral pitting lower extremity edema 2+ up to the knees Neuro: CN II-XII grossly intact Psych: Alert, oriented, appropriate affect Assessment/Plan: Acute CHF exacerbation HTN History of CAD status post CABG and stents History of PAD status post iliac artery stent -TTE ordered, pending -Patient is on room air, appears comfortable, continue with IV Lasix for today, will likely transition to oral pending clinical course -Cardiology consulted, recommendations appreciated -Strict I's and O's, daily weight, cardiac diet -Continue aspirin 81, atorvastatin 40, Plavix 75; -Continue Jardiance -Continue lisinopril 20, Lopressor 50 twice daily -Patient is currently on dual antiplatelet and Eliquis, aspirin can probably be stopped down the road, cardiology following Paroxysmal A-fib: Continue home Eliquis 5 twice daily HLD: Continue atorvastatin Type II DM: Continue Jardiance, Accu-Cheks, SSI BPH: Continue tamsulosin The patient is admitted with an anticipated [greater] than 2 midnight stay as [inpatient/observation] status for evaluation of CHF exacerbation CODE STATUS: Full code default, patient would like to take his time and think about it DVT prophylaxis: Eliquis Anticipated discharge date: [address] to [address]: Home independent A total of 40 minutes was spent on the care of this complex patient more than 50% of the time was spent in counseling and care coordination. Past Medical History Past Medical History: Atrial Fibrillation, Coronary Artery Disease (CAD), Cancer, Diabetes Mellitus, GERD/Reflux, Hyperlipidemia, Hypertension, Vascular Disorder Additional Past Medical History / Comment(s): , hx admission for "critically" low sodium per psouse 5yrs ago, leukemia, grt toe rt foot -finishing up abx for infection. bph History of Any Multi-Drug Resistant Organisms: None Reported Past Surgical History: Coronary Bypass/CABG, Heart Catheterization, Tonsillectomy Additional Past Surgical History / Comment(s): 1999 CABG, right carotid endartectomy- 1999, stent in rt carotid. Past Anesthesia/Blood Transfusion Reactions: No Reported Reaction, Motion Sickness Date of Last Stent Placement:: 2017 Past Psychological History: No Psychological Hx Reported Past Alcohol Use History: Occasional - Past Family History Father Family Medical History: Myocardial Infarction ([place]) Additional Family Medical History / Comment(s): heart problems Mother Family Medical History: Diabetes Mellitus Additional Family Medical History / Comment(s): heart problems Medications and Allergies Home Medications Medication Instructions Recorded Confirmed Type Nilotinib HCl [Tasigna] 300 mg PO BID 03/30/21 02/13/24 History Omeprazole 20 mg PO BID 03/30/21 02/13/24 History Tamsulosin HCl [Flomax] 0.8 mg PO HS 03/30/21 02/13/24 History Metoprolol Tartrate [Lopressor] 50 mg PO BID 12/27/22 02/13/24 History lisinopriL [Zestril] 20 mg PO DAILY 12/27/22 02/13/24 History Apixaban [Eliquis] 5 mg PO BID 02/13/24 02/13/24 History Aspirin EC [Ecotrin Low Dose] 81 mg PO DAILY 02/13/24 02/13/24 History Atorvastatin [Lipitor] 40 mg PO HS 02/13/24 02/13/24 History Cinnamon Bark [Cinnamon] 1,000 mg PO BID 02/13/24 02/13/24 History Clopidogrel [Plavix] 75 mg PO DAILY 02/13/24 02/13/24 History Empagliflozin [Jardiance] 25 mg PO DAILY 02/13/24 02/13/24 History Milk Thistle 150 mg PO DAILY 02/13/24 02/13/24 History guaiFENesin [Mucinex] 600 mg PO Q12H 02/13/24 02/13/24 History polyethylene glycoL 3350 [Miralax] 17 gm PO DAILY PRN 02/13/24 02/13/24 History Allergies Allergy/AdvReac Type Severity Reaction Status Date / Time No Known Allergies Allergy Verified 02/13/24 10:55 Physical Exam Vitals: Vital Signs Temp Pulse Resp BP Pulse Ox 02/13/24 13:26 98 20 180/94 98 02/13/24 11:41 97 22 180/113 98 02/13/24 10:32 98 18 165/106 98 02/13/24 08:37 99 20 158/101 99 02/13/24 08:23 97.5 F L 98 16 152/94 98 Intake and Output 02/12/24 02/13/24 02/13/24 22:59 06:59 14:59 Other: Weight 73.936 kg Results CBC & Chem 7: 02/13/24 09:05 02/13/24 09:05 Labs: Abnormal Lab Results - Last 24 Hours (Table) 02/13/24 02/13/24 02/13/24 Range/Units 09:05 09:05 09:05 RDW 17.1 H (11.5-15.5) % Lymphocytes # 0.7 L (1.0-4.8) k/uL PT 12.9 H (10.0-12.5) sec INR 1.2 H (<1.2) BUN 24 H (9-20) mg/dL Total Bilirubin 3.0 H (0.2-1.3) mg/dL Alkaline Phosphatase 307 H (38-126) U/L Urine Protein (Negative) Urine Glucose (UA) (Negative) 02/13/24 Range/Units 09:51 RDW (11.5-15.5) % Lymphocytes # (1.0-4.8) k/uL PT (10.0-12.5) sec INR (<1.2) BUN (9-20) mg/dL Total Bilirubin (0.2-1.3) mg/dL Alkaline Phosphatase (38-126) U/L Urine Protein Trace H (Negative) Urine Glucose (UA) 4+ H (Negative)
[2024-02-13 16:02] LABS: Glucose,Whole Blood 102 mg/dL (70-110)
[2024-02-13] MEDS: INSULIN ASPART (NovoLOG) 100 UNIT/ML VIAL SQ SCH (18:07)
[2024-02-13 20:02] LABS: Glucose,Whole Blood 158 mg/dL (70-110)
[2024-02-13] MEDS: FUROSEMIDE 10 MG/ML 4 ML VIAL IV SCH (20:13)
[2024-02-13] MEDS: METOPROLOL TARTRATE 50 MG TAB PO SCH (20:13)
[2024-02-13] MEDS: APIXABAN 5 MG TAB PO SCH (20:13)
[2024-02-13] MEDS: TAMSULOSIN 0.4 MG CAP.ER.24H PO SCH (20:13)
[2024-02-13] MEDS: ATORVASTATIN 40 MG TAB PO SCH (20:13)
[2024-02-14 06:05] LABS: Glucose,Whole Blood 90 mg/dL (70-110)
[2024-02-14] MEDS: PANTOPRAZOLE 40 MG TABLET PO SCH (06:38)
[2024-02-14 07:04] LABS: Anisocytosis Slight; Basophils # (A) 0.1 k/uL (0-0.2); Basophils % (A) 1 %; Eosinophils # (A) 0.2 k/uL (0-0.7); Eosinophils % (A) 3 %; HGB 14.8 gm/dL (13.0-17.5); Lymphocytes # (A) 0.7 k/uL (1.0-4.8); Lymphocytes % (A) 10 %; MCH 29.2 pg (25.0-35.0); MCHC 32.2 g/dL (31.0-37.0); MCV 90.7 fL (80.0-100.0); Mean Platelet Volume 7.3; Monocytes # (A) 0.8 k/uL (0-1.0); Monocytes % (A) 13 %; Neutrophils # (A) 4.7 k/uL (1.3-7.7); Neutrophils % (A) 70 %; Platelet Count 156 k/uL (150-450); RBC 5.08 m/uL (4.30-5.90); RDW 16.7 % (11.5-15.5); WBC 6.7 k/uL (3.8-10.6)
[2024-02-14 07:24] LABS: ALT 34 U/L (4-49); AST 44 U/L (17-59); African American GFR (CKD) 62 (>60 ml/min/1.73 sqM); Albumin 4.8 g/dL (3.5-5.0); Alkaline Phosphatase 378 U/L (38-126); Anion Gap 11 mmol/L; Blood Urea Nitrogen 23 mg/dL (9-20); Calcium 10.4 mg/dL (8.4-10.2); Carbon Dioxide 33 mmol/L (22-30); Chloride 97 mmol/L (98-107); Glucose 90 mg/dL (74-99); Non-African American GFR(CKD) 54 (>60 ml/min/1.73 sqM); Sodium 141 mmol/L (137-145); Total Bilirubin 3.4 mg/dL (0.2-1.3); Total Protein 8.3 g/dL (6.3-8.2)
[2024-02-14] MEDS ORDERED: Potassium Replacement Protocol 1 EACH MISC MISCELLANE PRN (08:36)
[2024-02-14] MEDS: ASPIRIN 81 MG PO SCH (09:05)
[2024-02-14] MEDS: FUROSEMIDE 10 MG/ML 4 ML VIAL IV SCH ×2 (09:06→20:36)
[2024-02-14] MEDS: CLOPIDOGREL 75 MG TAB PO SCH (09:06)
[2024-02-14] MEDS: DAPAGLIFLOZIN PROPANEDIOL 10 MG TABLET PO SCH (09:06)
[2024-02-14] MEDS: POTASSIUM CHLORIDE ER 20 MEQ TAB.ER PO SCH (09:06)
[2024-02-14] MEDS: lisinopriL 20 MG TAB PO SCH (09:07)
[2024-02-14 11:12] LABS: Glucose,Whole Blood 115 mg/dL (70-110)
[2024-02-14 11:16] VITALS: BMI 25.5
[2024-02-14] MEDS ORDERED: BENZOCAINE SPRAY 1 CAN TOPICAL PRN (11:53)
[2024-02-14] MEDS ORDERED: fentaNYL (PF) 50 MCG/ML 5 ML AMP IVP PRN (11:53)
[2024-02-14] MEDS ORDERED: MIDAZOLAM 2 MG/2 ML VIAL IV PRN (11:53)
--- NOTE | 2024-02-14 11:54 | P.PN ---
Subjective Progress Note Date: 02/14/24 Hospital Course: Patient is an 78-year-old male with past medical history of type II DM, HTN, H LD, CAD s/p CABG, prior stenting, status post antrectomy, GERD, A-fib,, PAD status post left external iliac stents 04/01,] who presented to the ED with shortness of breath and bilateral lower extremity edema ongoing for the past 1 month, symptoms started gradually. Patient reports orthopnea, he gets short of breath while going up half of a flight of stairs, he denies weight changes, diet changes except for eating more ham during [place] time. He was seen in urgent care January 27 and was prescription prescribed azithromycin and completed course with no improvement, however, patient stated t hat his chest x-ray was interpreted as normal at that time. He denies fevers, chills, sick contacts, cough, abdominal pain, chest pain, dysuria. In the ER patient was afebrile, satting well on room air, heart rate in 90s, BP elevated 152/94. EKG showed sinus rhythm with PVCs, no ST elevation. Chest x-ray showed mild cardiomegaly with new small right pleural effusion. His CBC was unremarkable, normal electrolytes, normal creatinine, troponin negative x 2, NT proBNP elevated 11,500. Urinalysis with trace proteinuria and glucosuria. Viral panel negative. Patient received 1 dose of IV Lasix 40 in the ER, cardiology was consulted by ER, TTE ordered. Patient is admitted for management of acute CHF exacerbation. Patient remains on room air, feeling generally well, lower extremity edema going down, creatinine is up from 1.12-1.26, continue to monitor while on IV diuresis Pertinent Imaging: Subjective: Patient feels generally well, bilateral lower extremity edema is improving Pertinent positives and negatives as discussed above, a complete review of systems was performed and all other systems are negative. Vitals Signs Reviewed. Vital signs reviewed General: nontoxic, no distress, appears at stated age Derm: warm, dry Head: atraumatic, normocephalic, symmetric Eyes: EOMI, no lid lag, anicteric sclera, pupils equal round reactive to light ENT: Nose and ears atraumatic Neck: No thyromegaly, supple Mouth: no lip lesion, mucus membranes moist Cardiovascular: S1S2 reg, no murmur, no edema Lungs: clear to auscultation bilateral, no rhonchi, no rales, no wheeze, no accessory muscle use Abdominal: soft, nontender to palpation, no guarding, no appreciable organomegaly Ext: no gross muscle atrophy, muscle strength muscle strength 5 out of 5 in all 4 extremities, no contractures bilateral pitting lower extremity edema 2+ up to the knees Neuro: CN II-XII grossly intact Psych: Alert, oriented, appropriate affect Assessment and Plan: Acute CHF exacerbation HTN History of CAD status post CABG and stents History of PAD status post iliac artery stent -TTE ordered, pending -Patient is on room air, appears comfortable, continue with IV Lasix for today, will likely transition to oral pending clinical course -Cardiology consulted, recommendations appreciated -Strict I's and O's, daily weight, cardiac diet; urine output 3100 cc -Continue aspirin 81, atorvastatin 40, Plavix 75; -Continue Jardiance -Continue lisinopril 20, Lopressor 50 twice daily -Patient was on dual antiplatelet and Eliquis, aspirin is stopped -Monitor BMP for further creatinine) IV diuresis Hypokalemia: Potassium 3.0 replaced Paroxysmal A-fib: Continue home Eliquis 5 twice daily HLD: Continue atorvastatin Type II DM: Continue Jardiance, Accu-Cheks, SSI BPH: Continue tamsulosin DVT prophylaxis: Eliquis Anticipated discharge date: 24 to [address]: Home independent Objective - Vital Signs Vital signs: Vital Signs Temp 97.6 F 02/14/24 08:10 Pulse 101 H 02/14/24 11:10 Resp 16 02/14/24 11:10 BP 158/61 02/14/24 11:10 Pulse Ox 97 02/14/24 11:10 FiO2 Intake & Output 02/13/24 02/14/24 02/14/24 18:59 06:59 18:59 Intake Total 476 Output Total 3100 700 Balance -3100 -224 Weight 73.936 kg 74.1 kg 74.1 kg Intake: Oral 476 Output: Urine 3100 700 Other: Voiding Method Urinal Urinal - Labs CBC & Chem 7: 02/14/24 06:23 02/14/24 06:23 Labs: Abnormal Lab Results - Last 24 Hours (Table) 02/13/24 02/14/24 02/14/24 Range/Units 20:01 06:23 06:23 RDW 16.7 H (11.5-15.5) % Lymphocytes # 0.7 L (1.0-4.8) k/uL Potassium 3.0 L (3.5-5.1) mmol/L Chloride 97 L (98-107) mmol/L Carbon Dioxide 33 H (22-30) mmol/L BUN 23 H (9-20) mg/dL Creatinine 1.26 H (0.66-1.25) mg/dL POC Glucose (mg/dL) 158 H (70-110) mg/dL Calcium 10.4 H (8.4-10.2) mg/dL Total Bilirubin 3.4 H (0.2-1.3) mg/dL Alkaline Phosphatase 378 H (38-126) U/L Total Protein 8.3 H (6.3-8.2) g/dL 02/14/24 Range/Units 11:10 RDW (11.5-15.5) % Lymphocytes # (1.0-4.8) k/uL Potassium (3.5-5.1) mmol/L Chloride (98-107) mmol/L Carbon Dioxide (22-30) mmol/L BUN (9-20) mg/dL Creatinine (0.66-1.25) mg/dL POC Glucose (mg/dL) 115 H (70-110) mg/dL Calcium (8.4-10.2) mg/dL Total Bilirubin (0.2-1.3) mg/dL Alkaline Phosphatase (38-126) U/L Total Protein (6.3-8.2) g/dL
--- NOTE | 2024-02-14 12:26 | P.CRDCN ---
History of Present Illness History of present illness: HISTORY OF PRESENT ILLNESS: This is a 78-year-old male with a past medical history significant for coronary artery disease with previous CABG, hypertension, hyperlipidemia, and atrial flu tter. Patient follows in the office with Dr. Guido. We have been asked to see the patient in consultation for congestive heart failure. Patient examined at the bedside. Patient presented to the hospital with a chief complaint of shortness of breath. He was unable to lay flat at night due to shortness of breath. Denies chest pain or pressure. Patient was found to be acute heart failure and was started on IV lasix. Patient is sitting in the chair this morning. He denies chest pain or pressure. EKG on admission reveals atrial flutter. Upon reviewing telemetry, patient remains in atrial flutter with a heart rate around 100. DIAGNOSTICS: - EKG reveals atrial flutter with T wave inversions in lead I, V4V6. - Chest xray mild cardiomegaly with new small right pleural effusion - Laboratory data: WBC 6.7. Hemoglobin 14.8. Platelet count 156. Sodium 141. Potassium 3.0. BUN 23. Creatinine 1.26. Magnesium 2.0. Troponin negative x 3. proBNP 11,500. - Current home cardiac medications include Lipitor 40 mg at night, Plavix 75 mg daily, lisinopril 20 mg daily, Eliquis 5 mg twice a day, metoprolol tartrate 50 mg twice a day, aspirin 81 mg daily. - Most recent echocardiogram obtained in June 2023 revealed ejection fraction 45 to 50%, severe LVH, severe TR, trace to mild AR and severely dilated right and left atrium REVIEW OF SYSTEMS: At the time of my exam: CONSTITUTIONAL: Denies fever or chills. HEENT: Denies blurred vision, vision changes, or eye pain. Denies hemoptysis CARDIOVASCULAR: Denies chest pain. Denies orthopnea. Denies PND. Denies palpitations RESPIRATORY: Denies shortness of breath. GASTROINTESTINAL: Denies abdominal pain. Denies nausea or vomiting. HEMATOLOGIC: Denies bleeding disorders. GENITOURINARY: Denies any blood in urine. SKIN: Denies pruitis. Denies rash. PHYSICAL EXAM: VITAL SIGNS: Reviewed. GENERAL: Well-developed in no acute distress. HEENT: Head is normocephalic. Pupils are equal, round. Sclerae anicteric. Mucous membranes of the mouth are moist. Neck supple. No JVD or thyromegaly LUNGS: Respirations even and unlabored. Lungs essentially clear to auscultation bilaterally. HEART: Regular rate and rhythm. S1 and S2 heard. ABDOMEN: Soft. Nondistended. Nontender. EXTREMITIES: Normal range of motion. No clubbing or cyanosis. Peripheral pulses intact. Bilateral lower extremity edema NEUROLOGIC: Awake and alert. Oriented x 3. ASSESSMENT: Acute heart failure with mildly reduced EF, 45%, repeat echo pending Coronary artery disease with previous CABG Paroxysmal typical atrial flutter Paroxysmal atrial fibrillation with previous cardioversion, 2021 Peripheral vascular disease, status post stenting of left common iliac artery and left external iliac artery, 02/2023 Carotid stenosis with previous right carotid endarterectomy Hypertension Hyperlipidemia Former nicotine dependence PLAN: 2D echo ordered. Await results. Continue IV Lasix. Increase dosage to 40 mg twice a day. Continue Plavix and Eliquis. Discontinue aspirin Continue metoprolol Patient to undergo SOPHIE/CV on Monday02/16/[address] Guido Further recommendations pending patient course Nurse practitioner note has been reviewed by physician. Signing provider agrees with the documented findings, assessment, and plan of care documented by ROLL CONTOUR GRINDER as a scribe. Past Medical History Past Medical History: Atrial Fibrillation, Coronary Artery Disease (CAD), Cancer, Diabetes Mellitus, GERD/Reflux, Hyperlipidemia, Hypertension, Vascular Disorder Additional Past Medical History / Comment(s): , hx admission for "critically" low sodium per psouse 5yrs ago, leukemia, grt toe rt foot -finishing up abx for infection. bph History of Any Multi-Drug Resistant Organisms: None Reported Past Surgical History: Coronary Bypass/CABG, Heart Catheterization, Tonsillectomy Additional Past Surgical History / Comment(s): 1999 CABG, right carotid endartectomy- 1999, stent in rt carotid. Past Anesthesia/Blood Transfusion Reactions: No Reported Reaction, Motion Sickness Date of Last Stent Placement:: 2017 Past Psychological History: No Psychological Hx Reported Additional Psychological History / Comment(s): . Smoking Status: Former smoker Past Alcohol Use History: Occasional Additional Past Alcohol Use History / Comment(s): smoked for 30 yrs, quit in 20 00, 1 PPD Past Drug Use History: None Reported - Past Family History Father Family Medical History: Myocardial Infarction ([place]) Additional Family Medical History / Comment(s): heart problems Mother Family Medical History: Diabetes Mellitus Additional Family Medical History / Comment(s): heart problems Medications and Allergies Home Medications Medication Instructions Recorded Confirmed Type Nilotinib HCl [Tasigna] 300 mg PO BID 03/30/21 02/13/24 History Omeprazole 20 mg PO BID 03/30/21 02/13/24 History Tamsulosin HCl [Flomax] 0.8 mg PO HS 03/30/21 02/13/24 History Metoprolol Tartrate [Lopressor] 50 mg PO BID 12/27/22 02/13/24 History lisinopriL [Zestril] 20 mg PO DAILY 12/27/22 02/13/24 History Apixaban [Eliquis] 5 mg PO BID 02/13/24 02/13/24 History Aspirin EC [Ecotrin Low Dose] 81 mg PO DAILY 02/13/24 02/13/24 History Atorvastatin [Lipitor] 40 mg PO HS 02/13/24 02/13/24 History Cinnamon Bark [Cinnamon] 1,000 mg PO BID 02/13/24 02/13/24 History Clopidogrel [Plavix] 75 mg PO DAILY 02/13/24 02/13/24 History Empagliflozin [Jardiance] 25 mg PO DAILY 02/13/24 02/13/24 History Milk Thistle 150 mg PO DAILY 02/13/24 02/13/24 History guaiFENesin [Mucinex] 600 mg PO Q12H 02/13/24 02/13/24 History polyethylene glycoL 3350 [Miralax] 17 gm PO DAILY PRN 02/13/24 02/13/24 History Allergies Allergy/AdvReac Type Severity Reaction Status Date / Time No Known Allergies Allergy Verified 02/13/24 10:55 Physical Exam Vitals: Vital Signs Temp Pulse Pulse Resp BP BP Pulse Ox 02/14/24 09:06 154/76 02/14/24 08:10 97.6 F 102 H 18 107/71 97 02/14/24 04:00 97.9 F 98 16 146/80 98 02/14/24 02:00 92 16 02/14/24 00:00 98.0 F 92 16 148/84 98 02/13/24 20:00 97.8 F 100 16 186/107 99 02/13/24 17:42 98.6 F 66 18 179/109 96 01/07/25 16:50 97.4 F L 101 H 20 170/88 99 02/13/24 15:55 98 18 175/97 97 02/13/24 13:26 98 20 180/94 98 02/13/24 11:41 97 22 180/113 98 02/13/24 10:32 98 18 165/106 98 Intake and Output 02/13/24 02/14/24 02/14/24 22:59 06:59 14:59 Intake Total 476 Output Total 1400 1700 Balance -1400 -1700 476 Intake: Oral 476 Output: Urine 1400 1700 Other: Voiding Method Urinal Urinal Urinal Weight 73.936 kg 74.1 kg Results 02/14/24 06:23 02/14/24 06:23 Cardiac Enzymes 02/13/24 02/13/24 02/14/24 Range/Units 11:34 14:11 06:23 AST 44 (17-59) U/L Troponin I <0.012 <0.012 (0.000-0.034) ng/mL CBC 02/14/24 Range/Units 06:23 WBC 6.7 (3.8-10.6) k/uL RBC 5.08 (4.30-5.90) m/uL Hgb 14.8 (13.0-17.5) gm/dL Hct 46.0 (39.0-53.0) % Plt Count 156 (150-450) k/uL Comprehensive Metabolic Panel 02/14/24 Range/Units 06:23 Sodium 141 (137-145) mmol/L Potassium 3.0 L (3.5-5.1) mmol/L Chloride 97 L (98-107) mmol/L Carbon Dioxide 33 H (22-30) mmol/L BUN 23 H (9-20) mg/dL Creatinine 1.26 H (0.66-1.25) mg/dL Glucose 90 (74-99) mg/dL Calcium 10.4 H (8.4-10.2) mg/dL AST 44 (17-59) U/L ALT 34 (4-49) U/L Alkaline Phosphatase 378 H (38-126) U/L Total Protein 8.3 H (6.3-8.2) g/dL Albumin 4.8 (3.5-5.0) g/dL Current Medications Generic Name Dose Route Start Last Admin Trade Name Freq PRN Reason Stop Dose Admin Acetaminophen 650 mg 02/13/24 13:54 Acetaminophen Tab 325 Mg Tab PO Q6HR PRN Mild Pain or Fever > 100.5 Apixaban 5 mg 02/13/24 21:00 02/14/24 09:06 Apixaban 5 Mg Tab PO 5 mg BID HILDA Administration Protocol Aspirin 81 mg 02/14/24 09:00 02/14/24 09:05 Aspirin 81 Mg PO 81 mg DAILY HILDA Administration Atorvastatin Calcium 40 mg 02/13/24 21:00 02/13/24 20:13 Atorvastatin 40 Mg Tab PO 40 mg HS HILDA Administration Clopidogrel Bisulfate 75 mg 02/14/24 09:00 02/14/24 09:06 Clopidogrel 75 Mg Tab PO 75 mg DAILY HILDA Administration Dapagliflozin 10 mg 02/14/24 09:00 02/14/24 09:06 Dapagliflozin Propanediol 10 Mg Tablet PO 10 mg DAILY HILDA Administration Dextrose/Water 25 ml 02/13/24 13:57 Dextrose 50% Syringe 50 Ml IVP PER PROTOCOL PRN Hypoglycemia Protocol Dextrose/Water 50 ml 02/13/24 13:57 Dextrose 50% Syringe 50 Ml IVP PER PROTOCOL PRN Hypoglycemia Protocol Furosemide 40 mg 02/14/24 09:00 02/14/24 09:06 Furosemide 10 Mg/Ml 4 Ml Vial IV 40 mg DAILY HILDA Administration Insulin Aspart 0 unit 02/13/24 17:30 02/14/24 06:33 Insulin Aspart (Novolog) 100 Unit/Ml Vial SQ Not Given ACHS HILDA Protocol Lisinopril 20 mg 02/14/24 09:00 02/14/24 09:07 Lisinopril 20 Mg Tab PO 20 mg DAILY HILDA Administration Melatonin 3 mg 02/13/24 13:54 Melatonin 3 Mg Tablet PO HS PRN Insomnia Metoprolol Tartrate 50 mg 02/13/24 21:00 02/14/24 09:06 Metoprolol Tartrate 50 Mg Tab PO 50 mg BID HILDA Administration Miscellaneous Information 1 each 02/14/24 08:36 Potassium Replacement Protocol 1 Each Misc MISCELLANE DAILY PRN Per Protocol Protocol Naloxone HCl 0.2 mg 02/13/24 11:00 Naloxone 0.4 Mg/Ml 1 Ml Vial IV Q2M PRN Opioid Reversal Ondansetron HCl 4 mg 02/13/24 11:00 Ondansetron 4 Mg/2 Ml Vial IVP Q8HR PRN Nausea And Vomiting Pantoprazole Sodium 40 mg 02/14/24 07:30 02/14/24 06:38 Pantoprazole 40 Mg Tablet PO 40 mg DAILY@0730 HILDA Administration Polyethylene Glycol 17 gm 02/13/24 13:51 Polyethylene Glycol 3350 17 Gm Powd.Pack PO DAILY PRN Constipation Potassium Chloride 20 meq 02/14/24 10:00 02/14/24 09:06 Potassium Chloride Er 20 Meq Tab.Er PO 02/14/24 14:01 20 meq Q2HR HILDA Administration Protocol Prochlorperazine Maleate 5 mg 02/13/24 13:54 Prochlorperazine 5 Mg Tab PO Q8HR PRN Nausea And Vomiting Tamsulosin HCl 0.8 mg 02/13/24 21:00 02/13/24 20:13 Tamsulosin 0.4 Mg Cap.Er.24h PO 0.8 mg HS HILDA Administration Intake and Output 02/13/24 02/14/24 02/14/24 22:59 06:59 14:59 Intake Total 476 Output Total 1400 1700 Balance -1400 -1700 476 Intake: Oral 476 Output: Urine 1400 1700 Other: Voiding Method Urinal Urinal Urinal Weight 73.936 kg 74.1 kg 02/14/24 06:23 02/14/24 06:23
[2024-02-14 16:17] LABS: Glucose,Whole Blood 127 mg/dL (70-110)
[2024-02-14 20:23] LABS: Glucose,Whole Blood 131 mg/dL (70-110)
[2024-02-15 06:17] LABS: Glucose,Whole Blood 106 mg/dL (70-110)
[2024-02-15 06:55] LABS: African American GFR (CKD) 59 (>60 ml/min/1.73 sqM); Anion Gap 9 mmol/L; Blood Urea Nitrogen 29 mg/dL (9-20); Calcium 10.4 mg/dL (8.4-10.2); Carbon Dioxide 38 mmol/L (22-30); Chloride 93 mmol/L (98-107); Glucose 91 mg/dL (74-99); Non-African American GFR(CKD) 51 (>60 ml/min/1.73 sqM); Potassium 3.3 mmol/L (3.5-5.1); Sodium 140 mmol/L (137-145)
[2024-02-15] MEDS: FUROSEMIDE 10 MG/ML 4 ML VIAL IV SCH (08:59)
--- NOTE | 2024-02-15 10:36 | CA ---
Transthoracic Echo Report Name: Randall Brewster Age: 78 Gender: M : 1945 Exam Date: 02/14/2024 10:43 Exam Location: [facility] Ht (in): 67 Wt (lb): 163 Ordering Physician: Greg Sanchez MD Attending/Referring Phys: [employer] Purification Operator Estela Kate RDCS Procedure CPT: Indications: chf Cardiac Hx: Technical Quality: Fair Contrast 1: Total Dose (mL): Contrast 2: Total Dose (mL): MEASUREMENTS (Male / Female) Normal Values 2D ECHO LV Diastolic Diameter PLAX 4.7 cm 4.2 - 5.9 / 3.9 - 5.3 cm LV Systolic Diameter PLAX 3.8 cm IVS Diastolic Thickness 1.6 cm 0.6 - 1.0 / 0.6 - 0.9 cm LVPW Diastolic Thickness 1.5 cm 0.6 - 1.0 / 0.6 - 0.9 cm LV Relative Wall Thickness 0.7 RV Internal Dim ED PLAX 3.1 cm LVOT Diameter 1.9 cm LA Systolic Diameter LX 5.3 cm 3.0 - 4.0 / 2.7 - 3.8 cm LV Diastolic Volume MOD BP 50.0 cm??? 67 - 155 / 56 - 104 cm??? LV Systolic Volume MOD BP 33.9 cm??? 22 - 58 / 19 - 49 cm??? LV Ejection Fraction MOD BP 32.1 % >= 55 % LV Diastolic Volume MOD 4C 45.5 cm??? LV Systolic Volume MOD 4C 31.1 cm??? LV Ejection Fraction MOD 4C 31.8 % LV Diastolic Length 4C 6.3 cm LV Systolic Length 4C 6.6 cm LV Diastolic Volume MOD 2C 48.2 cm??? LV Systolic Volume MOD 2C 35.2 cm??? LV Ejection Fraction MOD 2C 27.0 % LV Diastolic Length 2C 7.3 cm LV Systolic Length 2C 6.9 cm LA Volume 58.4 cm??? 18 - 58 / 22 - 52 cm??? LA Volume Index 31.1 cm???/m??? 16 - 28 cm???/m??? M-MODE Aortic Root Diameter MM 3.3 cm LA Systolic Diameter MM 4.0 cm LA Ao Ratio MM 1.2 AV Cusp Separation MM 0.6 cm DOPPLER AV Peak Velocity 131.8 cm/s AV Peak Gradient 6.9 mmHg AV Mean Velocity 94.8 cm/s AV Mean Gradient 4.0 mmHg AV Velocity Time Integral 28.9 cm AI Peak Velocity 216.1 cm/s AI Peak Gradient 18.7 mmHg AI Pressure Half Time 708.1 ms LVOT Peak Velocity 59.4 cm/s LVOT Peak Gradient 1.4 mmHg LVOT Velocity Time Integral 13.4 cm LVOT Stroke Volume 36.9 cm??? LVOT Stroke Volume Index 19.9 ml/m??? AV Area Cont Eq vti 1.3 cm??? AV Area Cont Eq pk 1.2 cm??? TR Peak Velocity 242.0 cm/s TR Peak Gradient 23.4 mmHg FINDINGS Left Ventricle Left ventricular ejection fraction is estimated at 35-40 %. Moderately increased septal wall thickness. Moderately decreased left ventricular ejection fraction. Moderately reduced global left ventricular systolic function. Right Ventricle Moderate right ventricular dilatation. Reduced right ventricular global systolic function. Right ventricular systolic pressure within normal limits. Right Atrium Severe right atrial dilatation. Left Atrium Severely increased left atrial diameter. Mildly increased left atrial volume. Mitral Valve Mitral valve thickened. Mild mitral annular calcification. Mild mitral regurgitation. Aortic Valve Aortic valve not well visualized. Mild aortic regurgitation. Sclerotic aortic valve Tricuspid Valve Structurally normal tricuspid valve. [id number] tricuspid regurgitation. Pulmonic Valve Structurally normal pulmonic valve. Trace pulmonic regurgitation. No pulmonic stenosis. Pericardium No pericardial or pleural effusion. Aorta Normal size aortic root and proximal ascending aorta. CONCLUSIONS LVEF 35% Moderate concentric LVH. Moderately reduced global LV systolic function. Severe biatrial dilatation Dilated RV with reduced systolic function. Severe tricuspid regurgitation, mild to moderate mitral regurgitation Mild aortic regurg Previewed by: Dr Alberto Kay (Electronically Signed) Final Date: 14 February 2024 17:34
--- NOTE | 2024-02-15 10:37 | P.PN ---
Subjective HISTORY OF PRESENT ILLNESS: This is a 78-year-old male with a past medical history significant for coronary artery disease with previous CABG, hypertension, hyperlipidemia, and atrial flutter. Patient follows in the office with Dr. Guido. We have been asked to see the patient in consultation for congestive heart failure. Patient examined at e bedside. Patient presented to the hospital with a chief complaint of shortness of breath. He was unable to lay flat at night due to shortness of breath. Denies chest pain or pressure. Patient was found to be acute heart failure and was started on IV lasix. Patient is sitting in the chair this morning. He denies chest pain or pressure. EKG on admission reveals atrial flutter. Upon reviewing telemetry, patient remains in atrial flutter with a heart rate around 100. DIAGNOSTICS: - EKG reveals atrial flutter with T wave inversions in lead I, V4V6. - Chest xray mild cardiomegaly with new small right pleural effusion - Laboratory data: WBC 6.7. Hemoglobin 14.8. Platelet count 156. Sodium 141. Potassium 3.0. BUN 23. Creatinine 1.26. Magnesium 2.0. Troponin negative x 3. proBNP 11,500. - Current home cardiac medications include Lipitor 40 mg at night, Plavix 75 mg daily, lisinopril 20 mg daily, Eliquis 5 mg twice a day, metoprolol tartrate 50 mg twice a day, aspirin 81 mg daily. - Most recent echocardiogram obtained in June 2023 revealed ejection fraction 45 to 50%, severe LVH, severe TR, trace to mild AR and severely dilated right and left atrium 02/15/2024 Patient examined this morning at the bedside. Patient currently denies chest pain or pressure. Patient states his shortness of breath is improving. He continues to have lower extremity edema although improving from yesterday. He remains on IV diuretics 40 mg every 12 hours. Telemetry reveals atrial flutter with controlled ventricular rate. PHYSICAL EXAM: VITAL SIGNS: Reviewed. GENERAL: Well-developed in no acute distress. HEENT: Head is normocephalic. Pupils are equal, round. Sclerae anicteric. Mucous membranes of the mouth are moist. Neck supple. No JVD or thyromegaly LUNGS: Respirations even and unlabored. Lungs essentially clear to auscultation bilaterally. HEART: Regular rate and rhythm. S1 and S2 heard. ABDOMEN: Soft. Nondistended. Nontender. EXTREMITIES: Normal range of motion. No clubbing or cyanosis. Peripheral pulses intact. Bilateral lower extremity edema NEUROLOGIC: Awake and alert. Oriented x 3. ASSESSMENT: Acute heart failure with mildly reduced EF, 45%, repeat echo pending Coronary artery disease with previous CABG Paroxysmal typical atrial flutter Paroxysmal atrial fibrillation with previous cardioversion, 2021 Peripheral vascular disease, status post stenting of left common iliac artery and left external iliac artery, 02/2023 Carotid stenosis with previous right carotid endarterectomy Hypertension Hyperlipidemia Former nicotine dependence PLAN: 2D echo ordered. Await results. Continue IV Lasix. Decrease dosage to 40 mg once a day Continue Plavix and Eliquis. Discontinued yesterday. Continue metoprolol Patient to undergo SOPHIE/CV on Monday02/16/[address] Guido N.p.o. at midnight Further recommendations pending patient course Nurse practitioner note has been reviewed by physician. Signing provider agrees with the documented findings, assessment, and plan of care documented by EXPERIMENTAL AIRCRAFT MECHANIC as a scribe. Objective - Vital Signs Vital signs: Vital Signs Temp 97.9 F 02/15/24 08:00 Pulse 108 H 02/15/24 08:00 Resp 18 02/15/24 08:00 BP 108/67 02/15/24 08:00 Pulse Ox 98 02/15/24 08:00 FiO2 Intake & Output 02/14/24 02/15/24 02/15/24 18:59 06:59 18:59 Intake Total 716 236 Output Total 1750 2400 Balance -1034 -2400 236 Weight 74.1 kg 64.9 kg Intake: Oral 716 236 Output: Urine 1750 2400 Other: Voiding Method Urinal Urinal # Voids 2 - Labs CBC & Chem 7: 02/14/24 06:23 02/15/24 05:35 Labs: Abnormal Lab Results - Last 24 Hours (Table) 02/14/24 02/14/24 02/14/24 Range/Units 11:10 16:13 20:22 Potassium (3.5-5.1) mmol/L Chloride (98-107) mmol/L Carbon Dioxide (22-30) mmol/L BUN (9-20) mg/dL Creatinine (0.66-1.25) mg/dL POC Glucose (mg/dL) 115 H 127 H 131 H (70-110) mg/dL Calcium (8.4-10.2) mg/dL 02/15/24 Range/Units 05:35 Potassium 3.3 L (3.5-5.1) mmol/L Chloride 93 L (98-107) mmol/L Carbon Dioxide 38 H (22-30) mmol/L BUN 29 H (9-20) mg/dL Creatinine 1.31 H (0.66-1.25) mg/dL POC Glucose (mg/dL) (70-110) mg/dL Calcium 10.4 H (8.4-10.2) mg/dL
[2024-02-15 11:18] LABS: Glucose,Whole Blood 128 mg/dL (70-110)
--- NOTE | 2024-02-15 13:17 | P.PN ---
Subjective Progress Note Date: 02/15/24 Hospital Course: Patient is an 78-year-old male with past medical history of type II DM, HTN, H LD, CAD s/p CABG, prior stenting, status post antrectomy, GERD, A-fib,, PAD status post left external iliac stents 04/01,] who presented to the ED with shortness of breath and bilateral lower extremity edema ongoing for the past 1 month, symptoms started gradually. Patient reports orthopnea, he gets short of breath while going up half of a flight of stairs, he denies weight changes, diet changes except for eating more ham during [place] time. He was seen in urgent care January 27 and was prescription prescribed azithromycin and completed course with no improvement, however, patient stated t hat his chest x-ray was interpreted as normal at that time. He denies fevers, chills, sick contacts, cough, abdominal pain, chest pain, dysuria. In the ER patient was afebrile, satting well on room air, heart rate in 90s, BP elevated 152/94. EKG showed sinus rhythm with PVCs, no ST elevation. Chest x-ray showed mild cardiomegaly with new small right pleural effusion. His CBC was unremarkable, normal electrolytes, normal creatinine, troponin negative x 2, NT proBNP elevated 11,500. Urinalysis with trace proteinuria and glucosuria. Viral panel negative. Patient received 1 dose of IV Lasix 40 in the ER, cardiology was consulted by ER Patient is admitted for management of acute CHF exacerbation. Patient remains on room air, feeling generally well, lower extremity edema going down, creatin ine is up from 1.12-1.26, continue to monitor while on IV diuresis, Lasix decreased to IV 40 daily. TTE showed EF of 35 to 40% with moderately increased septal wall thickness, moderate concentric LVH, severe biatrial dilation, severe tricuspid regurg, mild to moderate mitral regurg, plan for SOPHIE/CV on 02/16/2024 Pertinent Imaging: TTE 02/13 as above Subjective: Patient was seen and examined during morning rounds, feels well, states that he lower extremity swelling is coming down, denies chest pain, shortness of breath Pertinent positives and negatives as discussed above, a complete review of systems was performed and all other systems are negative. Vitals Signs Reviewed. General: nontoxic, no distress, appears at stated age Derm: warm, dry Head: atraumatic, normocephalic, symmetric Eyes: EOMI, no lid lag, anicteric sclera, pupils equal round reactive to light ENT: Nose and ears atraumatic Neck: No thyromegaly, supple Mouth: no lip lesion, mucus membranes moist Cardiovascular: S1S2 reg, no murmur, no edema Lungs: clear to auscultation bilateral, no rhonchi, no rales, no wheeze, no accessory muscle use Abdominal: soft, nontender to palpation, no guarding, no appreciable orga nomegaly Ext: no gross muscle atrophy, muscle strength muscle strength 5 out of 5 in all 4 extremities, no contractures bilateral pitting lower extremity edema 21 up to the knees, improved significantly Neuro: CN II-XII grossly intact Psych: Alert, oriented, appropriate affect Data Reviewed Today: Pertinent Labs: Uptrending creatinine 1.31, BUN 29, potassium 3.3, euglycemic Assessment and Plan: Acute HFrEF exacerbation HTN History of CAD status post CABG and stents History of PAD status post iliac artery stent severe tricuspid regurg, mild to moderate mitral regurg -TTE ordered, pending -Patient is on room air, appears comfortable, continue with IV Lasix for today, will likely transition to oral pending clinical course -Cardiology consulted, recommendations appreciated, plan for SOPHIE/CV on 02/16/2024 -Strict I's and O's, daily weight, cardiac diet; urine output 3100 cc -Continue atorvastatin 40, Plavix 75; -Continue Jardiance -Continue lisinopril 20, Lopressor 50 twice daily -Patient was on dual antiplatelet and Eliquis, aspirin is stopped -Monitor BMP for further creatinine) IV diuresis -showed EF of 35 to 40% with moderately increased septal wall thickness, moderate concentric LVH, severe biatrial dilation, severe tricuspid regurg, mild to moderate mitral regurg Hypokalemia: Potassium 3.0 replaced Paroxysmal A-fib A flutter Continue home Eliquis 5 twice daily plan for SOPHIE/CV on 02/16/2024 HLD: Continue atorvastatin Type II DM: Continue Jardiance, Accu-Cheks, SSI BPH: Continue tamsulosin DVT prophylaxis: Eliquis Anticipated discharge date: 24 to [address]: Home independent Objective - Vital Signs Vital signs: Vital Signs Temp 97.9 F 02/15/24 08:00 Pulse 108 H 02/15/24 08:00 Resp 18 02/15/24 08:00 BP 108/67 02/15/24 08:00 Pulse Ox 98 02/15/24 08:00 FiO2 Intake & Output 02/14/24 02/15/24 02/15/24 18:59 06:59 18:59 Intake Total 716 476 Output Total 1750 2400 Balance -1034 -2400 476 Weight 74.1 kg 64.9 kg Intake: Oral 716 476 Output: Urine 1750 2400 Other: Voiding Method Urinal Urinal # Voids 2 - Labs CBC & Chem 7: 02/14/24 06:23 02/15/24 05:35 Labs: Abnormal Lab Results - Last 24 Hours (Table) 02/14/24 02/14/24 02/15/24 Range/Units 16:13 20:22 05:35 Potassium 3.3 L (3.5-5.1) mmol/L Chloride 93 L (98-107) mmol/L Carbon Dioxide 38 H (22-30) mmol/L BUN 29 H (9-20) mg/dL Creatinine 1.31 H (0.66-1.25) mg/dL POC Glucose (mg/dL) 127 H 131 H (70-110) mg/dL Calcium 10.4 H (8.4-10.2) mg/dL 02/15/24 Range/Units 11:16 Potassium (3.5-5.1) mmol/L Chloride (98-107) mmol/L Carbon Dioxide (22-30) mmol/L BUN (9-20) mg/dL Creatinine (0.66-1.25) mg/dL POC Glucose (mg/dL) 128 H (70-110) mg/dL Calcium (8.4-10.2) mg/dL
[2024-02-15 16:09] LABS: Glucose,Whole Blood 112 mg/dL (70-110)
[2024-02-15 20:03] LABS: Glucose,Whole Blood 130 mg/dL (70-110)
[2024-02-15] MEDS: POTASSIUM CHLORIDE ER 20 MEQ TAB.ER PO SCH (22:16)
[2024-02-16 05:58] LABS: Glucose,Whole Blood 96 mg/dL (70-110)
[2024-02-16] MEDS: LACTATED RINGERS 500 ML IV ONE ×2 (07:19→08:32)
[2024-02-16] MEDS ORDERED: PROPOFOL 10 MG/ML 20 ML VIAL IV ONE (07:28)
[2024-02-16] MEDS ORDERED: LIDOCAINE 1% INJ 10MG/ML (20 ML MDV) ONE (07:28)
[2024-02-16] MEDS: BENZOCAINE SPRAY 1 EACH MM ONE (07:31)
[2024-02-16 07:46] LABS: African American GFR (CKD) 56 (>60 ml/min/1.73 sqM); Anion Gap 9 mmol/L; Blood Urea Nitrogen 34 mg/dL (9-20); Carbon Dioxide 36 mmol/L (22-30); Chloride 94 mmol/L (98-107); Glucose 97 mg/dL (74-99); Non-African American GFR(CKD) 48 (>60 ml/min/1.73 sqM); Potassium 3.7 mmol/L (3.5-5.1); Sodium 139 mmol/L (137-145)
--- NOTE | 2024-02-16 08:17 | ECHOT ---
TRANSESOPHAGEAL ECHOCARDIOGRAM INDICATION: To rule out intracardiac thrombus prior to cardioversion. PROCEDURE NOTE: After obtaining informed consent, transesophageal echocardiogram was performed in left lateral position using an Omniplane probe. Local and IV sedation were obtained by the meat department manager. The patient tolerated the procedure well without any obvious immediate complications. FINDINGS: 1. There is no intracardiac thrombus within the left atrial appendage, left atrium, right atrium, right ventricle. 2. Left atrium appears moderate to severely enlarged. Right atrium and right ventricle seemed within normal limits. The left ventricle has normal size, shows diffuse global hypokinesis with LV systolic dysfunction with an ejection fraction of 30% to 35%. There is moderate central mitral regurgitation noted. There is moderate to severe tricuspid regurgitation noted. There is mild aortic regurgitation noted. CONCLUSIONS: 1. No intracardiac thrombus within the left atrial appendage. 2. He did go back into atrial fibrillation. 3. Severe LV systolic dysfunction with diffuse global hypokinesis. 4. Moderate mitral regurgitation. 5. No evidence of shunting across the interatrial septum. PLAN: The patient will undergo cardioversion. MMODL / IJN: [id number] /
[2024-02-16 08:58] VITALS: RESP 18
[2024-02-16 11:18] VITALS: BP 94/60; PULSE 73; TEMP 97.4
--- NOTE | 2024-02-16 11:35 | P.PN ---
Subjective Progress Note Date: 02/16/24 HISTORY OF PRESENT ILLNESS: This is a 78-year-old male with a past medical history significant for coronary artery disease with previous CABG, hypertension, hyperlipidemia, and atrial flutter. Patient follows in the office with Dr. Guido. We have been asked to see the patient in consultation for congestive heart failure. Patient examined at the bedside. Patient presented to the hospital with a chief complaint of shortness of breath. He was unable to lay flat at night due to shortness of breath. Denies chest pain or pressure. Patient was found to be acute heart failure and was started on IV lasix. Patient is sitting in the chair this morning. He denies chest pain or pressure. EKG on admission reveals atrial flutter. Upon reviewing telemetry, patient remains in atrial flutter with a heart rate around 100. DIAGNOSTICS: - EKG reveals atrial flutter with T wave inversions in lead I, V4V6. - Chest xray mild cardiomegaly with new small right pleural effusion - Laboratory data: WBC 6.7. Hemoglobin 14.8. Platelet count 156. Sodium 141. Potassium 3.0. BUN 23. Creatinine 1.26. Magnesium 2.0. Troponin negative x 3. proBNP 11,500. - Current home cardiac medications include Lipitor 40 mg at night, Plavix 75 mg daily, lisinopril 20 mg daily, Eliquis 5 mg twice a day, metoprolol tartrate 50 mg twice a day, aspirin 81 mg daily. - Most recent echocardiogram obtained in June 2023 revealed ejection fraction 45 to 50%, severe LVH, severe TR, trace to mild AR and severely dilated right and left atrium 02/15/2024 Patient examined this morning at the bedside. Patient currently denies chest pain or pressure. Patient states his shortness of breath is improving. He continues to have lower extremity edema although improving from yesterday. He remains on IV diuretics 40 mg every 12 hours. Telemetry reveals atrial flutter with controlled ventricular rate. 02/16/2024 He underwent SOPHIE and cardioversion this morning and is currently in sinus rhythm. He reports he is feeling okay. His swelling has improved. PHYSICAL EXAM: VITAL SIGNS: Reviewed. GENERAL: Well-developed in no acute distress. HEENT: Head is normocephalic. Pupils are equal, round. Sclerae anicteric. Mucous membranes of the mouth are moist. Neck supple. No JVD or thyromegaly LUNGS: Respirations even and unlabored. Lungs essentially clear to auscultation bilaterally. HEART: Regular rate and rhythm. S1 and S2 heard. ABDOMEN: Soft. Nondistended. Nontender. EXTREMITIES: Normal range of motion. No clubbing or cyanosis. Peripheral pulses intact. Bilateral lower extremity edema NEUROLOGIC: Awake and alert. Oriented x 3. ASSESSMENT: Acute heart failure with mildly reduced EF, 45%, repeat echo pending Coronary artery disease with previous CABG Paroxysmal typical atrial flutter Paroxysmal atrial fibrillation with previous cardioversion, 2021 Peripheral vascular disease, status post stenting of left common iliac artery and left external iliac artery, 02/2023 Carotid stenosis with previous right carotid endarterectomy Hypertension Hyperlipidemia Former nicotine dependence PLAN: He is in sinus rhythm after cardioversion this morning. Recommend Lasix 20 mg p.o. at discharge. Discussed checking daily weight at home. Okay to discharge home from cardiology standpoint. Follow-up in the office with Dr. Mcdaniels in 1 week. Nurse practitioner note has been reviewed by physician. Signing provider agrees with the documented findings, assessment, and plan of care documented by MACHINE WEDGER as a scribe. Objective - Vital Signs Vital signs: Vital Signs Temp 97.4 F L 02/16/24 11:15 Pulse 73 02/16/24 11:15 Resp 18 02/16/24 11:15 BP 94/60 02/16/24 11:15 Pulse Ox 99 02/16/24 11:15 FiO2 Intake & Output 02/15/24 02/16/24 02/16/24 18:59 06:59 18:59 Intake Total 878 01 5066 Balance 642 62 3701 Weight 65.7 kg Intake: IV 20 810 Invasive Line 1 20 10 Oral 476 540 Other: Voiding Method Urinal Urinal - Labs CBC & Chem 7: 02/14/24 06:23 02/16/24 06:50 Labs: Abnormal Lab Results - Last 24 Hours (Table) 02/15/24 02/15/24 02/16/24 Range/Units 16:05 20:02 06:50 Chloride 94 L (98-107) mmol/L Carbon Dioxide 36 H (22-30) mmol/L BUN 34 H (9-20) mg/dL Creatinine 1.38 H (0.66-1.25) mg/dL POC Glucose (mg/dL) 112 H 130 H (70-110) mg/dL
[2024-02-16 12:03] LABS: Glucose,Whole Blood 154 mg/dL (70-110)
--- NOTE | 2024-02-16 13:16 | P.DS ---
Providers Date of admission: 02/13/24 11:01 Attending physician: Vinod Crain Consults: 02/13/24 10:59 Consult Physician Routine Consulting Provider: [facility] Consult Reason/Comments: chf, pleural effusion Do you want consulting provider notified?: Yes Primary care physician: Anthony Luong [facility] Course: Discharge Diagnosis: Acute HFrEF exacerbation HTN Paroxysmal typical atrial flutter s/p cardioversion 02/14/24 Paroxysmal atrial fibrillation with previous cardioversion, 2021 Peripheral vascular disease, status post stenting of left common iliac artery and left external iliac artery, 02/2023 Carotid stenosis with previous right carotid endarterectomy Hypertension Hyperlipidemia Former nicotine dependenc Hospital Course: Patient is an 78-year-old male with past medical history of type II DM, HTN, HLD, CAD s/p CABG, prior stenting, status post antrectomy, GERD, A-fib,, PAD status post left external iliac stents 04/01,] who presented to the ED with shortness of breath and bilateral lower extremity edema ongoing for the past 1 month, symptoms started gradually. Patient reports orthopnea, he gets short of breath while going up half of a flight of stairs, he denies weight changes, diet changes except for eating more ham during [place] time. He was seen in urgent care January 27 and was prescription prescribed azithromycin and completed course with no improvement, however, patient stated that his chest x-ray was interpreted as normal at that time. He denies fevers, chills, sick contacts, cough, abdominal pain, chest pain, dysuria. In the ER patient was afebrile, satting well on room air, heart rate in 90s, BP elevated 152/94. EKG showed sinus rhythm with PVCs, no ST elevation. Chest x-ray showed mild cardiomegaly with new small right pleural effusion. His CBC was unremarkable, normal electrolytes, normal creatinine, troponin negative x 2, NT proBNP elevated 11,500. Urinalysis with trace proteinuria and glucosuria. Viral panel negative. Patient received 1 dose of IV Lasix 40 in the ER, cardiology was consulted by ER Patient is admitted for management of acute CHF exacerbation. Patient remains on room air, feeling generally well, lower extremity edema going down, creatinine is up from 1.12-1.26, continue to monitor while on IV diuresis, Lasix decreased to IV 40 daily. TTE showed EF of 35 to 40% with moderately increased septal wall thickness, moderate concentric LVH, severe biatrial dilation, severe tricuspid regurg, mild to moderate mitral regurg, plan for SOPHIE/CV on 02/16/2024, cardioverted. Medication changes: Added Lasix 20 oral daily, aspirin was stopped, patient will continue Eliquis and Plavix. Follow-up in the office with Dr. Mcdaniels in 1 week Patient seen and examined at bedside.[] Vital signs reviewed and stable. General: nontoxic, no distress, appears at stated age Derm: warm, dry Head: atraumatic, normocephalic, symmetric Eyes: EOMI, no lid lag, anicteric sclera, pupils equal round reactive to light ENT: Nose and ears atraumatic Neck: No thyromegaly, supple Mouth: no lip lesion, mucus membranes moist Cardiovascular: S1S2 reg, no murmur, no edema Lungs: clear to auscultation bilateral, no rhonchi, no rales, no wheeze, no accessory muscle use Abdominal: soft, nontender to palpation, no guarding, no appreciable organomegaly Ext: no gross muscle atrophy, muscle strength muscle strength 5 out of 5 in all 4 extremities, no contractures bilateral pitting lower extremity edema 21 up to the knees, improved significantly Neuro: CN II-XII grossly intact Psych: Alert, oriented, appropriate affect A total of 40 minutes of time were spent preparing this complex discharge summary. Patient was discharged on 02/16/24. Patient Condition at Discharge: Stable Plan - Discharge Summary Discharge Rx Participant: No New Discharge Prescriptions: New Furosemide [Lasix] 20 mg PO DAILY #30 tab Continue Nilotinib HCl [Tasigna] 300 mg PO BID Tamsulosin HCl [Flomax] 0.8 mg PO HS lisinopriL [Zestril] 20 mg PO DAILY guaiFENesin [Mucinex] 600 mg PO Q12H Clopidogrel [Plavix] 75 mg PO DAILY Apixaban [Eliquis] 5 mg PO BID Omeprazole 20 mg PO BID Metoprolol Tartrate [Lopressor] 50 mg PO BID polyethylene glycoL 3350 [Miralax] 17 gm PO DAILY PRN PRN Reason: Constipation Empagliflozin [Jardiance] 25 mg PO DAILY Milk Thistle 150 mg PO DAILY Cinnamon Bark [Cinnamon] 1,000 mg PO BID Atorvastatin [Lipitor] 40 mg PO HS Discontinued Aspirin EC [Ecotrin Low Dose] 81 mg PO DAILY Discharge Medication List Nilotinib HCl [Tasigna] 300 mg PO BID 03/30/21 [History] Omeprazole 20 mg PO BID 03/30/21 [History] Tamsulosin HCl [Flomax] 0.8 mg PO HS 03/30/21 [History] Metoprolol Tartrate [Lopressor] 50 mg PO BID 12/27/22 [History] lisinopriL [Zestril] 20 mg PO DAILY 12/27/22 [History] Apixaban [Eliquis] 5 mg PO BID 02/13/24 [History] Atorvastatin [Lipitor] 40 mg PO HS 02/13/24 [History] Cinnamon Bark [Cinnamon] 1,000 mg PO BID 02/13/24 [History] Clopidogrel [Plavix] 75 mg PO DAILY 02/13/24 [History] Empagliflozin [Jardiance] 25 mg PO DAILY 02/13/24 [History] Milk Thistle 150 mg PO DAILY 02/13/24 [History] guaiFENesin [Mucinex] 600 mg PO Q12H 02/13/24 [History] polyethylene glycoL 3350 [Miralax] 17 gm PO DAILY PRN 02/13/24 [History] Furosemide [Lasix] 20 mg PO DAILY #30 tab 02/16/24 [Rx] Follow up Appointment(s)/Referral(s): Anthony Luong MD [Primary Care Provider] - 1-2 days Ran Guido MD [STAFF PHYSICIAN] - 1 Week Patient Instructions/Handouts: Heart Failure (DC) Activity/Diet/Wound Care/Special Instructions: Please, follow up with your PCP and heart doctor. Check your weight daily around the same time. Watch your salt and fluid intake. Discharge Disposition: HOME SELF-CARE
--- NOTE | 2024-02-19 10:28 | PCN ---
PROCEDURE NOTE INDICATION: Persistent atrial fibrillation with poorly controlled ventricular rate. PROCEDURE PERFORMED: Cardioversion. DESCRIPTION OF PROCEDURE: After obtaining informed consent, making sure that the patient was adequately anticoagulated with Eliquis and ruling out an intracardiac thrombus with SOPHIE, the patient underwent cardioversion with 150 joules of synchronized direct current. The patient converted to sinus rhythm following a single shock. He will be continued on the Eliquis. The patient had a run of nonsustained VT last night and that needs to be investigated further. He has LV systolic dysfunction and might need EP evaluation. MMODL / IJN: [id number] /
== END 2024-02-16 12:56 | disposition home or self-care (01) | DRG 291 ==
LOC: EC 08:15 → 3SCARD 11:01
PROVIDERS: ADMIT Student in an Organized Health Care Education/Training Program; ATTEND Student in an Organized Health Care Education/Training Program
PROC: 5A2204Z Restoration of Cardiac Rhythm, Single (ICD-10-PCS; 2024-02-16)
PROC: B246ZZ4 Ultrasonography of Right and Left Heart, Transesophageal (ICD-10-PCS; principal; 2024-02-16 07:30)
DX: I11.0 Hypertensive heart disease with heart failure (principal); I50.23 Acute on chronic systolic (congestive) heart failure; I48.3 Typical atrial flutter; I48.19 Other persistent atrial fibrillation; E78.5 Hyperlipidemia, unspecified; E87.6 Hypokalemia; I48.0 Paroxysmal atrial fibrillation; N40.0 Benign prostatic hyperplasia without lower urinary tract symptoms; I08.1 Rheumatic disorders of both mitral and tricuspid valves; Z79.01 Long term (current) use of anticoagulants; I65.29 Occlusion and stenosis of unspecified carotid artery; Z11.52 Encounter for screening for COVID-19; E11.51 Type 2 diabetes mellitus with diabetic peripheral angiopathy without gangrene; F41.0 Panic disorder [episodic paroxysmal anxiety]; I25.10 Atherosclerotic heart disease of native coronary artery without angina pectoris; I49.3 Ventricular premature depolarization; Z79.02 Long term (current) use of antithrombotics/antiplatelets; Z79.82 Long term (current) use of aspirin; Z79.84 Long term (current) use of oral hypoglycemic drugs; Z79.899 Other long term (current) drug therapy; Z82.49 Family history of ischemic heart disease and other diseases of the circulatory system; Z87.891 Personal history of nicotine dependence; Z85.6 Personal history of leukemia; Z95.1 Presence of aortocoronary bypass graft; Z95.820 Peripheral vascular angioplasty status with implants and grafts
CPT/HCPCS: 36415; 71046; 80048; 80053; 81003; 83605; 83735; 83880; 84484; 85025; 85610; 85730; 87636; 92960; 93005; 93306; 93312; 93320; 93325; 96374; 99285

== ENCOUNTER → 2024-02-21 | Outpatient (CLI) | payer MEDICARE ==
[2024-02-21 19:12] LABS: Basophils % (A) 1.4 %; Eosinophils # (A) 0.19 X 10*3/uL (0.04-0.35); Eosinophils % (A) 2.7 %; HCT 46.8 % (39.6-50.0); HGB 15.2 g/dL (13.0-17.0); Lymphocytes # (A) 0.92 X 10*3/uL (0.90-5.00); Lymphocytes % (A) 13.1 %; MCH 29.4 pg (27.0-32.0); MCHC 32.5 g/dL (32.0-37.0); MCV 90.5 FL (80.0-97.0); Mean Platelet Volume 10.5 FL (9.5-12.2); Monocytes # (A) 1.02 X 10*3/uL (0.20-1.00); Monocytes % (A) 14.6 %; NRBC Per 100 WBC 0 X 10*3/uL (0.00-0.01); Neutrophils # (A) 4.74 X 10*3/uL (1.80-7.70); Neutrophils % (A) 67.6 %; Platelet Count 185 X 10*3/uL (140-440); RBC 5.17 X 10*6/uL (4.40-5.60); WBC 7.01 X 10*3/uL (4.50-10.00)
[2024-02-21 20:01] LABS: ALT 39 U/L (10-49); AST 39 U/L (14-35); Albumin 4.5 g/dL (3.8-4.9); Albumin/Globulin Ratio 1.32 Ratio (1.60-3.17); Alkaline Phosphatase 343 U/L (41-126); BUN/Creat Ratio 23.64 Ratio (12.00-20.00); Blood Urea Nitrogen 33.1 mg/dL (9.0-27.0); Calcium 9.6 mg/dL (8.7-10.3); Carbon Dioxide 24.5 mmol/L (21.6-31.8); Chloride 99 mmol/L (96-109); Globulin 3.4 g/dL (1.6-3.3); Glucose 162 mg/dL (70-110); Potassium 4.3 mmol/L (3.5-5.5); Sodium 139 mmol/L (135-145); T4, Free (Free Thyroxine) 1.19 ng/dL (0.80-1.80); Total Protein 7.9 g/dL (6.2-8.2)
[2024-02-21 20:35] LABS: NT-Pro-B-Type Natriuretic Pept 6250 pg/mL (0-450)
== END | disposition home or self-care (01) ==
LOC: LABWHC1 13:51
PROVIDERS: ATTEND Family Medicine
DX: I48.91 Unspecified atrial fibrillation (principal)
CPT/HCPCS: 36415; 80053; 83880; 84439; 84443; 85025

== ENCOUNTER → 2024-04-10 | Outpatient (CLI) | payer MEDICARE ==
[2024-04-10 18:19] LABS: HCT 43.5 % (39.6-50.0); MCH 29.6 pg (27.0-32.0); MCHC 32.2 g/dL (32.0-37.0); Mean Platelet Volume 10.8 FL (9.5-12.2); NRBC Per 100 WBC 0 X 10*3/uL (0.00-0.01); Platelet Count 209 X 10*3/uL (140-440); RBC 4.73 X 10*6/uL (4.40-5.60); RDW 16.8 % (11.5-14.5); WBC 7.26 X 10*3/uL (4.50-10.00)
[2024-04-10 18:25] LABS: Blood Urea Nitrogen 24.5 mg/dL (9.0-27.0); Carbon Dioxide 25.2 mmol/L (21.6-31.8); Chloride 103 mmol/L (96-109); Potassium 3.9 mmol/L (3.5-5.5); Sodium 142 mmol/L (135-145)
== END | disposition home or self-care (01) ==
LOC: LABPAT 13:28
PROVIDERS: ATTEND Internal Medicine Clinical Cardiac Electrophysiology
DX: Z01.812 Encounter for preprocedural laboratory examination (principal); I48.3 Typical atrial flutter
CPT/HCPCS: 80051; 82565; 84520; 85027

== ENCOUNTER 2024-04-22 13:28 | Day surgery (SDC) | payer MEDICARE ==
[2024-04-22 14:42] LABS: Glucose,Whole Blood 93 mg/dL (70-110)
[2024-04-22] MEDS ORDERED: ROCURONIUM 10 MG/ML (5 ML VIAL) IV ONE (14:47)
[2024-04-22] MEDS ORDERED: fentaNYL (PF) 50 MCG/ML 2 ML AMP ONE (14:47)
[2024-04-22] MEDS ORDERED: NEOSTIGMINE 1 MG/ML 10 ML VIAL ONE (14:47)
[2024-04-22] MEDS ORDERED: ISOPROTERENOL 250 MCG/1.25 ML SYR IV ONE (14:47)
[2024-04-22] MEDS ORDERED: GLYCOPYRROLATE 0.2 MG/ML 2 ML VIAL ONE (14:47)
[2024-04-22] MEDS ORDERED: SUCCINYLCHOLINE CHLORIDE 200 MG/10 ML VIAL IV ONE (14:47)
[2024-04-22] MEDS ORDERED: ONDANSETRON 4 MG/2 ML VIAL ONE (14:47)
[2024-04-22] MEDS ORDERED: PHENYLEPHRINE-0.9% NACL SYG 1,000 MCG/10 ML SYRINGE ONE (14:47)
[2024-04-22] MEDS ORDERED: PROPOFOL 10 MG/ML 20 ML VIAL IV ONE (14:47)
[2024-04-22] MEDS ORDERED: LIDOCAINE 1% INJ 10MG/ML (20 ML MDV) ONE (14:47)
[2024-04-22] MEDS ORDERED: MIDAZOLAM 2 MG/2 ML VIAL ONE (14:47)
[2024-04-22] MEDS: SODIUM CHLORIDE 0.9% 1,000 ML IV ONE (14:49)
[2024-04-22] MEDS: LIDOCAINE 1% INJ 10MG/ML (20 ML MDV) SQ ONE (15:13)
[2024-04-22] MEDS: HEPARIN SODIUM (1,000 UNIT/ML) 1,000 UNIT in SODIUM CHLORIDE 0.9% 1,000 ML IRRIGATION ONE (16:00)
--- NOTE | 2024-04-22 17:35 | P.PRLE ---
RE: Randall Brewster Dear Anthony Pereira underwent diagnostic EP study and successful ablation for 1. Typical atrial flutter 2. Typical AV james reentry I have held his beta-blockers for now and these may be reinstituted depending upon his heart rates during sinus rhythm. If he still has cardiomyopathy during sinus rhythm, carvedilol may be used since he does run slow heart rates While he does need long-term anticoagulation, for the next 6 weeks Eliquis should be left uninterrupted. Thank you for entrusting me with the care of the patient Warm regards Sincerely John Arias
[2024-04-22 17:43] VITALS: RESP 16
--- NOTE | 2024-04-22 17:47 | P.EPPROC ---
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 Written informed consent was obtained prior to the procedure. Venous sheaths were placed in the right left femoral veins and a coronary sinus catheter was first placed. Concentric activation was noted. A Penta ray catheter was placed next along with a mapping ablation catheter Activation mapping of the right atrium was performed Activation map revealed count of clockwise activation pattern around the SHAWNA tricuspid atrium. However there was also evidence for early activation anterior and inferior to the coronary sinus os Initial tachycardia cycle length was 261 ms, 2-1 atrial tachycardia with a SHAWNA tricuspid activation but with early activation anterior inferior to the coronary sinus os Therefore entrainment mapping was performed and this resulted in termination of this original atrial tachycardia at a cycle length of around 251 ms but resumption of an atrial tachycardia consistent with typical atrial flutter at a cycle length of 320 ms First ablation for typical atrial flutter was performed and a successful cavotricuspid isthmus block was obtained with linear ablation in the 6 o'clock position. This line was interrogated for bidirectional block which was successfully proven with differential pacing Then attention was turned to the coronary sinus area and inferior to it. The original map was reviewed and needed. That there was a small area of micro reentry just below the coronary sinus on the septal aspect of the isthmus, distinct and separate from from the cavotricuspid reentry. Scar mapping revealed an isthmus with scar on either side in this region RF ablation was performed in this region, and an RF line of block was made from the inferior aspect of the coronary sinus os in the region of scar successfully Thereafter with pacing maneuvers SVT was induced. VAV response was noted with ventricular pacing, consistent with AV james reentry The septal times were short consistent with AV james reentry RF ablation was performed at the coronary sinus area with complete elimination of AV james reentry. NH interval remained stable Sinus node recovery times showed prolonged recovery times AV node Wenckebach block 580 ms VA Wenckebach block 300 ms Isopril was used which resulted in induction of AV james reentry At the end of the procedure the NH interval is 189 ms AH 73 ms and HV interval 48 ms
--- NOTE | 2024-04-22 17:52 | P.HPCAR ---
History of Present Illness This is Dr. Arias dictating an H/P on this patient The patient was interviewed and examined IMPRESSION / ASSESSMENT: Recurrent atrial tachycardia, 2-1 atrial tachycardia Electrical cardioversion with Dr. Mcdaniels Recurrence of the arrhythmia Cardiomyopathy ejection fraction 45% Shortness of breath with lower extremity edema Known coronary artery status post coronary artery bypass grafting Peripheral vascular disease Hypertension PLAN: Diagnose EP study and radiofrequency ablation of the arrhythmia Continue anticoagulation HPI Patient continues to remain in atrial tachycardia with RVR He has failed medical treatment. He has failed electrical cardioversion His tachycardia induced heart failure symptoms ROS: No fever chills or rigors, no cough, phlegm or expectoration, no nausea, vomiting or diarrhea, no hematuria, dysuria, no musculoskeletal complaints, no strokes or seizures, no skin lesions. EXAMINATION: Heart rate 124 beats a minute afebrile blood pressure 136/79 mmHg Heart sounds tachycardic No JVD Bilateral lower extremity edema Clear lungs no rhonchi no crackles No murmurs REVIEW OF LABS, ECG & MEDICAL DATA Normal TSH 1.8 Physical Exam Vitals: Vital Signs Temp Pulse Pulse Resp BP BP Pulse Ox 04/22/24 17:45 62 16 148/62 100 04/22/24 17:35 96.9 F L 69 16 136/79 100 04/22/24 14:45 97.2 F L 124 H 18 196/115 194/118 95 Intake and Output 04/22/24 04/22/24 04/22/24 06:59 14:59 22:59 Intake Total 650 338 Balance 650 338 Intake: IV 650 338 Other: Weight 71.5 kg Past Medical History Past Medical History: Atrial Fibrillation, Coronary Artery Disease (CAD), Cancer, Heart Failure, Diabetes Mellitus, GERD/Reflux, Hearing Disorder / Deafness, Hyperlipidemia, Hypertension, Prostate Disorder, Vascular Disorder Additional Past Medical History / Comment(s): See Dr. Arias's H&P; hx low sodium 2016, leukemia, bph, elysia foot swelling, wears hearing aids. History of Any Multi-Drug Resistant Organisms: None Reported Past Surgical History: Coronary Bypass/CABG, Heart Catheterization, Hernia Repair, Tonsillectomy Additional Past Surgical History / Comment(s): 1999 CABG, right carotid endartectomy 1999, stent in rt carotid. Past Anesthesia/Blood Transfusion Reactions: No Reported Reaction, Motion Sickness Additional Past Anesthesia/Blood Transfusion Reaction / Comment(s): No hx of blood tranfusion to date. Date of Last Stent Placement:: 2017 Smoking Status: Former smoker - Past Family History Father Family Medical History: Myocardial Infarction ([place]) Additional Family Medical History / Comment(s): heart problems Mother Family Medical History: Diabetes Mellitus Additional Family Medical History / Comment(s): heart problems Physical Examination Vital Signs Temp Pulse Pulse Resp BP BP Pulse Ox 04/22/24 17:45 62 16 148/62 100 04/22/24 17:35 96.9 F L 69 16 136/79 100 04/22/24 14:45 97.2 F L 124 H 18 196/115 194/118 95 Intake and Output 04/22/24 04/22/24 04/22/24 06:59 14:59 22:59 Intake Total 650 338 Balance 650 338 Intake: IV 650 338 Other: Weight 71.5 kg Results Current Medications Generic Name Dose Route Start Last Admin Trade Name Freq PRN Reason Stop Dose Admin Acetaminophen 650 mg 04/22/24 17:26 Acetaminophen Tab 325 Mg Tab PO 05/22/24 17:25 Q6HR PRN Mild Pain (Scale 1 to 3) Apixaban 5 mg 04/22/24 21:00 Apixaban 5 Mg Tab PO 05/22/24 20:59 BID HILDA Protocol Atorvastatin Calcium 40 mg 04/22/24 21:00 Atorvastatin 40 Mg Tab PO 05/22/24 20:59 HS [facility] Clopidogrel Bisulfate 75 mg 04/23/24 09:00 Clopidogrel 75 Mg Tab PO 05/23/24 08:59 DAILY HILDA Furosemide 20 mg 04/23/24 09:00 Furosemide 20 Mg Tab PO 05/23/24 08:59 DAILY HILDA Acetaminophen 1,000 mg/ IV 100 mls @ 400 mls/hr 04/22/24 18:00 Solution IVPB 04/22/24 18:14 ONCE ONE Lisinopril 20 mg 04/23/24 09:00 Lisinopril 20 Mg Tab PO 05/23/24 08:59 DAILY HILDA Magnesium Oxide 400 mg 04/22/24 21:00 Magnesium Oxide 400 Mg Tab PO 05/22/24 20:59 BID HILDA Non-Formulary Medication 25 mg 04/23/24 09:00 Empagliflozin [Jardiance] PO 05/23/24 08:59 DAILY HILDA Non-Formulary Medication 300 mg 04/22/24 21:00 Nilotinib Hcl [Tasigna] PO 05/22/24 20:59 BID HILDA Non-Formulary Medication 20 mg 04/23/24 09:00 Omeprazole [Omeprazole] PO 05/23/24 08:59 DAILY HILDA Sodium Chloride 12 ml 04/22/24 17:26 Sodium Chloride 0.9% Flush 10 Ml Syringe IV 05/22/24 17:25 Q12HR PRN Line Flush Tamsulosin HCl 0.8 mg 04/22/24 21:00 Tamsulosin 0.4 Mg Cap.Er.24h PO 05/22/24 20:59 HS HILDA Intake and Output 04/22/24 04/22/24 04/22/24 06:59 14:59 22:59 Intake Total 650 338 Balance 650 338 Intake: IV 650 338 Other: Weight 71.5 kg Patient Weight 04/23/24 06:59 Weight 71.5 kg
[2024-04-22] MEDS: ACETAMINOPHEN IV (For NPO) 1,000 MG in EMPTY BAG 1 BAG IVPB ONE (18:28)
[2024-04-22] MEDS: SODIUM CHLORIDE 0.9% 1,000 ML IV SCH (19:28)
[2024-04-22] MEDS: LACTATED RINGERS 1,000 ML IV SCH (19:28)
[2024-04-22] MEDS: TAMSULOSIN 0.4 MG CAP.ER.24H PO SCH (19:58)
[2024-04-22] MEDS: ATORVASTATIN 40 MG TAB PO SCH (19:58)
[2024-04-22] MEDS: MAGNESIUM OXIDE 400 MG TAB PO SCH (19:58)
[2024-04-22] MEDS: APIXABAN 5 MG TAB PO SCH (19:58)
[2024-04-22] MEDS: NON FORMULARY DRUG (Nilotinib Hcl [Tasigna] 150 MG Capsule) PO SCH (19:59)
[2024-04-23] MEDS: PANTOPRAZOLE 40 MG TABLET PO SCH (06:19)
[2024-04-23] MEDS: FUROSEMIDE 20 MG TAB PO SCH (08:17)
[2024-04-23] MEDS: DAPAGLIFLOZIN PROPANEDIOL 10 MG TABLET PO SCH (08:18)
[2024-04-23] MEDS: lisinopriL 20 MG TAB PO SCH (08:19)
[2024-04-23] MEDS: CLOPIDOGREL 75 MG TAB PO SCH (08:19)
[2024-04-23] MEDS: METOPROLOL TARTRATE 25 MG TAB PO SCH (10:10)
[2024-04-23] MEDS: METOPROLOL TARTRATE 50 MG TAB PO STA (10:26)
--- NOTE | 2024-04-23 14:13 | P.PN ---
Subjective Progress Note Date: 04/23/24 The patient is an 78-year-old male who underwent EP study and ablation yesterday with Dr. Vaughan. 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 At the end of the procedure Isopril induced AV james reentry, which was also ablated however this was close to the coronary sinus. Overnight the patient states he did well and had absolutely no complaints. No chest pain pressure or pain in his groins. At the time of my examination, patient was noted to be in AVNRT despite being asymptomatic. Heart rates were in the 140s and it was confirmed with the EKG. GENERAL: Well-appearing, well-nourished and in no acute distress. NECK: Supple without JVD or thyromegaly. LUNGS: Breath sounds clear to auscultation bilaterally. Respiration equal and unlabored. No wheezes, rales or rhonchi. HEART: Regular rate, notably tachycardiac. No murmurs, rubs or gallops. S1 and S2 heard. EXTREMITIES: Normal range of motion, no edema. No clubbing or cyanosis. Peripheral pulses intact and strong. 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 Objective - Vital Signs Vital signs: Vital Signs Temp 97.9 F 04/23/24 07:00 Pulse 73 04/23/24 07:00 Resp 16 04/23/24 07:00 BP 164/96 04/23/24 09:54 Pulse Ox 97 04/23/24 07:00 FiO2 Intake & Output 04/22/24 04/23/24 04/23/24 18:59 06:59 18:59 Intake Total 1088 118 Balance 1088 118 Weight 71.5 kg Intake: IV 1088 Oral 118 Other: Voiding Method Urinal Urinal # Voids 2
[2024-04-23] MEDS: METOPROLOL TARTRATE 50 MG TAB PO SCH (15:47)
[2024-04-23] MEDS: ACETAMINOPHEN TAB 325 MG TAB PO PRN (15:50)
[2024-04-23 20:34] LABS: Glucose,Whole Blood 132 mg/dL (70-110)
[2024-04-23] MEDS ORDERED: METOPROLOL TARTRATE 50 MG TAB PO SCH (21:00)
[2024-04-24 07:25] LABS: Glucose,Whole Blood 99 mg/dL (70-110)
[2024-04-24 07:31] VITALS: BP 128/71; PULSE 55; TEMP 97.6
[2024-04-24] MEDS: METOPROLOL TARTRATE 50 MG TAB PO SCH (08:14)
--- NOTE | 2024-04-24 09:26 | P.DS ---
Providers Date of admission: 04/22/24 Attending physician: John Arias Primary care physician: Anthony Mirza [place] [facility] Course: The patient is an 78-year-old male who underwent EP study and ablation on April [address] Arisa. Typical atrial flutter and mitral reentry were both ablated. Upon stimulation at the end of the EP study, AV james reentry was also induced. This also was ablated, however patient began having breakthrough episodes yesterday on telemetry. He was asymptomatic at the time. Beta-goldy was resumed and he was monitored overnight. Patient interviewed and examined walking around his room. He states he feels well. No chest pain, pressure, or shortness of breath. GENERAL: Well-appearing, well-nourished and in no acute distress. NECK: Supple without JVD or thyromegaly. LUNGS: Breath sounds clear to auscultation bilaterally. Respiration equal and unlabored. No wheezes, rales or rhonchi. HEART: Regular rate and rhythm without murmurs, rubs or gallops. S1 and S2 heard. EXTREMITIES: Normal range of motion, no edema. No clubbing or cyanosis. Peripheral pulses intact and strong. TELEMETRY: Sinus rhythm overnight. No further breakthrough episodes of SVT since yesterday evening. 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 Guido in 1 week I am dictating on behalf of Dr John Arias's history/physical and assessment/plan. Plan - Discharge Summary Discharge Rx Participant: No New Discharge Prescriptions: Continue Nilotinib HCl [Tasigna] 300 mg PO BID Tamsulosin HCl [Flomax] 0.8 mg PO HS lisinopriL [Zestril] 20 mg PO DAILY Clopidogrel [Plavix] 75 mg PO DAILY Apixaban [Eliquis] 5 mg PO BID Vitamin A (Unknown Dose) 1 tab PO DAILY Magnesium 250 mg PO BID Furosemide [Lasix] 20 mg PO DAILY Ascorbic Acid [Vitamin C] 250 mg PO DAILY Potassium(Unknown Dose) 1 tab PO DAILY Omeprazole 20 mg PO DAILY polyethylene glycoL 3350 [Miralax] 17 gm PO DAILY PRN PRN Reason: Constipation Empagliflozin [Jardiance] 25 mg PO DAILY Milk Thistle 150 mg PO DAILY Cinnamon Bark [Cinnamon] 1,000 mg PO BID Atorvastatin [Lipitor] 40 mg PO HS Acetaminophen [Tylenol Extra Strength] 500 mg PO Q6H PRN PRN Reason: Pain traMADol HCl [Ultram] 50 mg PO Q6H PRN #6 tab PRN Reason: Pain Discontinued Metoprolol Tartrate [Lopressor] 50 mg PO BID Discharge Medication List Nilotinib HCl [Tasigna] 300 mg PO BID 03/30/21 [History] Omeprazole 20 mg PO DAILY 03/30/21 [History] Tamsulosin HCl [Flomax] 0.8 mg PO HS 03/30/21 [History] lisinopriL [Zestril] 20 mg PO DAILY 12/27/22 [History] Apixaban [Eliquis] 5 mg PO BID 02/13/24 [History] Atorvastatin [Lipitor] 40 mg PO HS 02/13/24 [History] Cinnamon Bark [Cinnamon] 1,000 mg PO BID 02/13/24 [History] Clopidogrel [Plavix] 75 mg PO DAILY 02/13/24 [History] Empagliflozin [Jardiance] 25 mg PO DAILY 02/13/24 [History] Milk Thistle 150 mg PO DAILY 02/13/24 [History] polyethylene glycoL 3350 [Miralax] 17 gm PO DAILY PRN 02/13/24 [History] Acetaminophen [Tylenol Extra Strength] 500 mg PO Q6H PRN 03/06/24 [History] Ascorbic Acid [Vitamin C] 250 mg PO DAILY 03/06/24 [History] Furosemide [Lasix] 20 mg PO DAILY 03/06/24 [History] Magnesium 250 mg PO BID 03/06/24 [History] Potassium(Unknown Dose) 1 tab PO DAILY 03/06/24 [History] Vitamin A (Unknown Dose) 1 tab PO DAILY 03/06/24 [History] traMADol HCl [Ultram] 50 mg PO Q6H PRN #6 tab 03/11/24 [Rx] Follow up Appointment(s)/Referral(s): Ran Guido MD [STAFF PHYSICIAN] - 04/25/24 2:15 pm Patient Instructions/Handouts: Cardiac Ablation (DC) Activity/Diet/Wound Care/Special Instructions: Post EP study - Ablation instructions 1. Keep access sites dry for 2 days. 2. No heavy lifting or straining for 2 days. 3. Avoid bending the hips repeatedly for 2 days. 4. You may go up and down stairs slowly 5. If you have had an ablation for atrial fibrillation or atrial flutter and are on a blood thinner, do not stop the blood thinner even temporarily for 3 months post ablation Call if the following is noted 1. Bleeding, increasing swelling or pain at the access sites. 2. Increasing chest discomfort, especially upon taking a deep breath. 3. Increasing shortness of breath, at rest or with exertion. 4. Undue cough / phlegm 5. Difficulty or pain while swallowing. 6. Pain or change in color in the extremities. 7. Fever, chills, rigors. 8. Increasing headache or neurologic symptoms. 9. Dizziness, fainting, palpitations For patients who have undergone an A-fib ablation /atrial flutter ablation Strict instruction; do NOT stop anticoagulation (Eliquis/Xarelto/Pradaxa) for the next 2 months temporarily, for any elective, nonurgent surgery. This increases the risk of stroke, post A-fib ablation Discharge Disposition: HOME SELF-CARE
== END 2024-04-24 11:28 | disposition home or self-care (01) ==
LOC: CATHEP 13:28 → 6NMEDSUR 17:10 → CATHEP 04-24 11:28
PROVIDERS: ATTEND Internal Medicine Clinical Cardiac Electrophysiology
DX: I25.10 Atherosclerotic heart disease of native coronary artery without angina pectoris (principal); I48.3 Typical atrial flutter; I47.19 Other supraventricular tachycardia; I44.1 Atrioventricular block, second degree; I25.5 Ischemic cardiomyopathy; I73.9 Peripheral vascular disease, unspecified; I11.0 Hypertensive heart disease with heart failure; I50.33 Acute on chronic diastolic (congestive) heart failure; E11.51 Type 2 diabetes mellitus with diabetic peripheral angiopathy without gangrene; K21.9 Gastro-esophageal reflux disease without esophagitis; E78.5 Hyperlipidemia, unspecified; N40.0 Benign prostatic hyperplasia without lower urinary tract symptoms; H91.90 Unspecified hearing loss, unspecified ear; Z98.890 Other specified postprocedural states; Z90.89 Acquired absence of other organs; Z95.1 Presence of aortocoronary bypass graft; Z87.891 Personal history of nicotine dependence; Z82.49 Family history of ischemic heart disease and other diseases of the circulatory system; Z83.3 Family history of diabetes mellitus; Z79.02 Long term (current) use of antithrombotics/antiplatelets; Z79.01 Long term (current) use of anticoagulants; Z79.84 Long term (current) use of oral hypoglycemic drugs; Z79.899 Other long term (current) drug therapy
CPT/HCPCS: 93623; 93662; 93653; 86900; 86901; 84443; 86850; J2250; J0330; J2710; J2405; J2003; J3010; J1644; J0131; J2704; J2371; J1596

== ENCOUNTER → 2024-05-28 | Outpatient (CLI) | payer MEDICARE ==
[2024-05-28 15:11] LABS: NT-Pro-B-Type Natriuretic Pept 2460 pg/mL (0-450)
[2024-05-28 15:13] LABS: BUN/Creat Ratio 31.57 Ratio (12.00-20.00); Blood Urea Nitrogen 44.2 mg/dL (9.0-27.0); Carbon Dioxide 27.2 mmol/L (21.6-31.8); Chloride 98 mmol/L (96-109); Glucose 68 mg/dL (70-110); Potassium 5.1 mmol/L (3.5-5.5); Sodium 140 mmol/L (135-145)
== END | disposition home or self-care (01) ==
LOC: LABWHC1 10:19
PROVIDERS: ATTEND Internal Medicine Cardiovascular Disease
DX: I25.810 Atherosclerosis of coronary artery bypass graft(s) without angina pectoris (principal)
CPT/HCPCS: 36415; 80048; 83880

== ENCOUNTER 2024-07-16 10:05 | Day surgery (SDC) | payer MEDICARE ==
[~2024-07-16 10:05] MED LIST changes: -ALPRAZolam 0.25 MG TAB PO PRN; -ALPRAZolam 0.5 MG TAB PO PRN; -ASPIRIN 325 MG TAB PO PRN; +HYDROmorphone 0.5 MG/0.5 ML SYRINGE IVP PRN; +MIDAZOLAM 2 MG/2 ML VIAL IV PRN; -SODIUM CHLORIDE 0.9% 1,000 ML in EMPTY BAG 1 BAG IV ONE; +ceFAZolin 2 GM in DEXTROSE 5% IN WATER 50 ML IVPB PRN
[2024-07-16] MEDS: IV FLUID CONTINUATION 1,000 ML IV ONE (10:42)
[2024-07-16 11:01] VITALS: TEMP 97.1
[2024-07-16] MEDS: DEXAMETHASONE SOD PHOSPHATE 4 MG/ML 1 ML VIAL IV ONE (11:05)
[2024-07-16] MEDS: LACTATED RINGERS 1,000 ML IV SCH (11:05)
[2024-07-16] MEDS: ONDANSETRON 4 MG/2 ML VIAL IVP ONE (11:06)
[2024-07-16 11:09] LABS: Glucose,Whole Blood 109 mg/dL (70-110)
[2024-07-16] MEDS ORDERED: METOPROLOL TARTRATE 5 MG/5 ML VIAL IVP ONE (11:59)
--- NOTE | 2024-07-16 12:13 | P.HPIHPCON ---
History of Present Illness H&P Date: 07/16/24 Chief Complaint: Bladder mass This is an 78-year-old male with history of gross hematuria, underwent a cystoscopy that showed evidence of a large bladder mass. Discussed with him given this finding I do recommend proceeding with a transurethral resection of a bladder tumor. He is aware of the risk which include but not limited to bleeding, infection, bladder perforation Consent for Procedure: I have explained the operation/procedure to the patient, including the risks, benefits, side effects, alternative therapies (including not receiving the proposed treatment or service), the likelihood of the patient achieving his/her goals, and potential recuperation problems for the procedure/sedation/analgesia, as well as any blood products, if indicated. I also explained to the patient the risks, benefits and side effects of the alternatives, as well as the risks related to not receiving the proposed procedure, care, treatment, or services. Past Medical History Past Medical History: Atrial Fibrillation, Blood Disorder, Coronary Artery Disease (CAD), Cancer, Heart Failure, Diabetes Mellitus, GERD/Reflux, Hearing Disorder / Deafness, Hyperlipidemia, Hypertension, Prostate Disorder, Vascular Disorder Additional Past Medical History / Comment(s): CHF. hx admission for "critically" low sodium per psouse 5yrs ago, leukemia, grt toe rt foot infction. bph. Rt leg "bad circulation." 2 stents to lt leg. has some sores on toes. being treated for bleeding retina rt eye History of Any Multi-Drug Resistant Organisms: None Reported Past Surgical History: Coronary Bypass/CABG, Heart Catheterization, Tonsillectomy Additional Past Surgical History / Comment(s): 1999 CABG, right carotid enda rtectomy- 1999, stent in rt carotid. 2 stents placed in lt leg. Past Anesthesia/Blood Transfusion Reactions: Motion Sickness Additional Past Anesthesia/Blood Transfusion Reaction / Comment(s): No hx of blood tranfusion to date. Date of Last Stent Placement:: 2017 Smoking Status: Former smoker - Past Family History Father Family Medical History: Myocardial Infarction ([place]) Additional Family Medical History / Comment(s): heart problems Mother Family Medical History: Diabetes Mellitus Additional Family Medical History / Comment(s): heart problems Medications and Allergies Home Medications Medication Instructions Recorded Confirmed Type Nilotinib HCl [Tasigna] 300 mg PO BID 03/30/21 07/16/24 History Omeprazole 20 mg PO DAILY 03/30/21 07/11/24 History lisinopriL [Zestril] 20 mg PO DAILY 12/27/22 07/11/24 History Apixaban [Eliquis] 5 mg PO BID 02/13/24 07/16/24 History Atorvastatin [Lipitor] 40 mg PO HS 02/13/24 07/16/24 History Cinnamon Bark [Cinnamon] 1,000 mg PO BID 02/13/24 07/16/24 History Clopidogrel [Plavix] 75 mg PO DAILY 02/13/24 07/16/24 History Empagliflozin [Jardiance] 25 mg PO DAILY 02/13/24 07/16/24 History Milk Thistle 150 mg PO DAILY 02/13/24 07/16/24 History Acetaminophen [Tylenol Extra 500 mg PO Q6H PRN 03/06/24 07/16/24 History Strength] Ascorbic Acid [Vitamin C] 250 mg PO DAILY 03/06/24 07/16/24 History Magnesium 250 mg PO BID 03/06/24 07/16/24 History Potassium(Unknown Dose) 99 meq PO DAILY 03/06/24 07/16/24 History Vitamin A (Unknown Dose) 1 tab PO DAILY 03/06/24 07/16/24 History Torsemide [Demadex] 20 mg PO DAILY 07/11/24 07/16/24 History Allergies Allergy/AdvReac Type Severity Reaction Status Date / Time No Known Allergies Allergy Verified 07/16/24 10:53 Surgical - Exam Vital Signs Temp Pulse Resp BP Pulse Ox 97.1 F L 63 18 191/85 100 07/16/24 10:40 07/16/24 10:40 07/16/24 10:40 07/16/24 10:40 07/16/24 10:40 - General no distress, no pain - Eyes normal ocular movement, no pale - ENT normal nares, normal mucosa - Respiratory normal expansion, normal respiratory effort - Abdomen Abdomen: soft, non tender Assessment and Plan Assessment: OR for TURBT
[2024-07-16 12:42] VITALS: RESP 16
--- NOTE | 2024-07-16 12:44 | P.PN ---
Progress Note - Text Progress Note Date: 07/16/24 Patient was taken to the operating room, his heart rate continued to spike into the 150s and his rhythm was in A-fib. He did receive a dose of Lopressor, but continued to have intermittent Tachycardia into the 150s. At this point both me and anesthesiologist felt its unsafe to proceed with surgery given patient's heart rate. He was advised to follow back up with his telegraph repeater technician, and we will plan on rescheduling this once his heart rate is more controlled.
[2024-07-16 13:31] LABS: Glucose,Whole Blood 117 mg/dL (70-110)
[2024-07-16] MEDS: METOPROLOL TARTRATE 5 MG/5 ML VIAL IVP STA (14:08)
[2024-07-16 14:29] VITALS: BP 169/70; PULSE 62
== END 2024-07-16 14:44 | disposition home or self-care (01) ==
LOC: OR 10:05
PROVIDERS: ATTEND Urology
DX: Z53.8 Procedure and treatment not carried out for other reasons (principal); N40.0 Benign prostatic hyperplasia without lower urinary tract symptoms; I25.10 Atherosclerotic heart disease of native coronary artery without angina pectoris; I48.91 Unspecified atrial fibrillation; I11.0 Hypertensive heart disease with heart failure; I50.9 Heart failure, unspecified; K21.9 Gastro-esophageal reflux disease without esophagitis; E11.9 Type 2 diabetes mellitus without complications; E78.5 Hyperlipidemia, unspecified; Z90.89 Acquired absence of other organs; Z95.1 Presence of aortocoronary bypass graft; Z87.891 Personal history of nicotine dependence; Z82.49 Family history of ischemic heart disease and other diseases of the circulatory system; Z83.3 Family history of diabetes mellitus; Z79.01 Long term (current) use of anticoagulants; Z79.02 Long term (current) use of antithrombotics/antiplatelets; Z79.84 Long term (current) use of oral hypoglycemic drugs; Z79.899 Other long term (current) drug therapy
CPT/HCPCS: J1100; J2405